=== PATIENT | female | born 1930 | race Caucasian/White ===

== ENCOUNTER 2016-10-25 14:39 | Emergency (ER) | payer MEDICARE, OTHER ==
[2016-10-25] MEDS ORDERED: LORazepam 2 MG/ML MDV IVPUSH ONE (15:27)
[2016-10-25] MEDS ORDERED: Ondansetron 4 MG/2 ML SDV IVPUSH ONE (15:27)
[2016-10-25] MEDS ORDERED: Sodium Chloride 0.9% 10 ML Syringe FLUSH PRN (15:30)
[2016-10-25] MEDS ORDERED: Sodium Chloride 0.9% 500 ML IV ONE (16:26)
[2016-10-25] MEDS ORDERED: Scopolamine 1.5 MG Transdermal Patch TOP ONE (18:11)
--- NOTE | 2016-10-25 18:50 | EDM.PDOC ---
ED HPI GENERAL MEDICAL PROBLEM - General Chief Complaint: Neurological Problem Stated Complaint: Dizziness Time Seen by Provider: 10/25/16 15:15 Source of Information: Reports: Patient, RN Notes Reviewed History Limitations: Reports: No Limitations - History of Present Illness INITIAL COMMENTS - FREE TEXT/NARRATIVE: 86 year old female presents to the ED today with complaints of dizziness. She describes the dizziness as the room spinning. The symptoms came on suddenly and are worse with position changes. She almost immediately developed nausea, vomiting, and diarrhea. She has a history of vertigo and Minieres disease. She says this episode is much worse than previous episodes. Normally the episodes of dizziness resolve quickly. Today the symptoms are most persistent. She usually takes meclizine which helps but today she did not take any because she was vomiting. She did however take an aspirin. She denies headache, slurred speech, confusion, or weakness in extremities. She did develop a little chest pressure prior to arrival. This quickly resolved. She denies history of heart disease. She reports a history of "mini stroke." Otherwise no other neurologic history. She denies fever, chills, cough, abdominal pain. She denies near syncope or feeling lightheaded. - Related Data Allergies Allergy/AdvReac Type Severity Reaction Status Date / Time ciprofloxacin Allergy Edema Verified 10/25/16 14:55 fentanyl Allergy Shortness Verified 10/25/16 14:55 of Breath Home Meds: Home Meds Omeprazole 40 mg PO DAILY 09/11/13 [History] Simvastatin [Zocor] 10 mg PO QPM 09/11/13 [History] Meclizine [Antivert] 25 mg PO Q8HR PRN 09/24/13 [History] Zolpidem [Ambien] 5 mg PO BEDTIME PRN 09/24/13 [History] Levothyroxine [Synthroid] 1 mg PO ACBRK 06/22/14 [History] Losartan/Hydrochlorothiazide [Losartan-HCTZ 100-25 MG] 25 - 100 mg PO DAILY [History] Aspirin [Halfprin] 81 mg PO Q48H 11/28/15 [History] Past Medical History Other HEENT History: eye infections Cardiovascular History: Reports: High Cholesterol, Hypertension Other Cardiovascular History: phlebitis Angiogram . Gastrointestinal History: Reports: Diverticulosis, GERD, Hiatal Hernia, PUD Genitourinary History: Reports: Renal Calculus, Urinary Incontinence, Other ( See Below) Other Genitourinary History: bladder infection Musculoskeletal History: Reports: Osteoarthritis Neurological History: Reports: Vertigo Psychiatric History: Reports: Anxiety, Depression Other Psychiatric History: per pt she stopped taking meds because she thinks they dont do any good. 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, Renal Other Oncologic History: last chemo 2 years ago - Past Surgical History HEENT Surgical History: Reports: Cataract Surgery Cardiovascular Surgical History: Reports: Other (See Below) Social & Family History - Tobacco Use Smoking Status *Q: Never Smoker Second Hand Smoke Exposure: No - Caffeine Use Caffeine Use: Reports: None - Alcohol Use Days Per Week of Alcohol Use: 0 Number of Drinks Per Day: 0 Total Drinks Per Week: 0 - Recreational Drug Use Recreational Drug Use: No - Living Situation & Occupation Living situation: Reports: , with Spouse Occupation: Retired ED ROS GENERAL - Review of Systems Review Of Systems: See Below Constitutional: Denies: Fever, Chills, Diaphoresis HEENT: Reports: Vertigo. Denies: Ear Pain, Vision Change Respiratory: Reports: No Symptoms. Denies: Shortness of Breath, Cough Cardiovascular: Reports: Chest Pain. Denies: Dyspnea on Exertion, Edema, Lightheadedness, Palpitations, Syncope GI/Abdominal: Reports: Diarrhea, Nausea, Vomiting. Denies: Abdominal Pain Neurological: Reports: Dizziness, Difficulty Walking. Denies: Confusion, Headache, Numbness, Syncope, Tingling, Tremors, Trouble Speaking, Weakness, Change in Speech ED EXAM, DIZZINESS - Physical Exam Exam: See Below Exam Limited By: No Limitations General Appearance: Alert, WD/WN, No Apparent Distress, Anxious Eye Exam: Bilateral Eye: EOMI, Normal Inspection, PERRL Ears: Normal External Exam, Normal Canal, Hearing Grossly Normal, Normal TMs Nose: Normal Inspection, Normal Mucosa Throat/Mouth: Normal Inspection, Normal Oropharynx, No Airway Compromise Head Exam: Atraumatic, Normocephalic Vertigo: worsens with head to L, worsens with head to R, reproducible, short duration Respiratory/Chest: No Respiratory Distress, Lungs Clear, Normal Breath Sounds, No Accessory Muscle Use, Chest Non-Tender Cardiovascular: Normal Peripheral Pulses, Regular Rate, Rhythm, No Edema, No Murmur GI/Abdominal: Normal Bowel Sounds, Soft, Non-Tender, No Distention Neurological: Alert, Normal Mood/Affect, Normal Dorsiflexion, CN II-XII Intact, Normal Plantar Flexion, No Motor/Sensory Deficits, Oriented x 3 Psychiatric: Anxious Skin Exam: Warm, Dry, Intact Course - Vital Signs Last Recorded V/S: Last Vital Signs Temp 98.8 F 10/25/16 14:51 Pulse 77 10/25/16 14:51 Resp 22 H 10/25/16 14:51 BP 148/72 H 10/25/16 15:30 Pulse Ox 100 10/25/16 14:51 - Orders/Labs/Meds Orders: Active Orders 24 hr Category Date Time Status Cardiac Monitoring [RC] . DIRECTED Care 10/25/16 15:31 Active EKG 12 Lead [EKG Documentation Completion] [RC] STAT Care 10/25/16 15:31 Active Peripheral IV Care [RC] . DIRECTED Care 10/25/16 15:31 Active Sodium Chloride 0.9% [Saline Flush] Med 10/25/16 15:30 Active 10 ml FLUSH ASDIRECTED PRN Peripheral IV Insertion Adult [OM.PC] Stat Oth 10/25/16 15:31 Ordered Medication Orders Sodium Chloride (Saline Flush) 10 ml FLUSH ASDIRECTED PRN PRN Reason: Keep Vein Open Last Admin: 10/25/16 15:56 Dose: 10 ml Labs: Laboratory Tests 10/25/16 10/25/16 Range/Units 15:25 15:25 WBC 3.36 L (3.98-10.04) K/mm3 RBC 3.67 L (3.98-5.22) M/mm3 Hgb 11.2 (11.2-15.7) gm/L Hct 32.9 L (34.1-44.9) % MCV 89.6 (79.4-94.8) fl MCH 30.5 (25.6-32.2) pg MCHC 34.0 (32.2-35.5) g/dl RDW Std Deviation 43.2 (36.4-46.3) fL Plt Count 168 L (182-369) K/mm3 MPV 9.2 L (9.4-12.3) fl Neut % (Auto) 73.8 H (34.0-71.1) % Lymph % (Auto) 14.0 L (19.3-51.7) % [place] % (Auto) 9.8 (4.7-12.5) % Eos % (Auto) 1.8 (0.7-5.8) Baso % (Auto) 0.3 (0.1-1.2) % Neut # (Auto) 2.48 (1.56-6.13) K/mm3 Lymph # (Auto) 0.47 L (1.18-3.74) K/mm3 [place] # (Auto) 0.33 (0.24-0.36) K/mm3 Eos # (Auto) 0.06 (0.04-0.36) K/mm3 Baso # (Auto) 0.01 (0.01-0.08) K/mm3 Sodium 135 L (136-145) mEq/L Potassium 3.1 L (3.5-5.1) mEq/L Chloride 98 (98-107) mEq/L Carbon Dioxide 31 (21-32) mEq/L Anion Gap 9.1 (5-15) BUN 25 H (7-18) mg/dL Creatinine 1.5 H (0.55-1.02) mg/dL Est Cr Clr Drug Dosing 25.69 mL/min Estimated GFR (MDRD) 33 (>60) mL/min BUN/Creatinine Ratio 16.7 (14-18) Glucose 123 H (83-115) mg/dL Calcium 8.9 (8.5-10.1) mg/dL Total Bilirubin 1.0 (0.2-1.0) mg/dL AST 21 (15-37) U/L ALT 21 (14-59) U/L Alkaline Phosphatase 36 L (46-116) U/L Troponin I < 0.017 (0.00-0.056) ng/mL Total Protein 6.5 (6.4-8.2) g/dl Albumin 3.8 (3.4-5.0) g/dl Globulin 2.7 gm/dL Albumin/Globulin Ratio 1.4 (1-2) Meds: Medications Generic Name Dose Route Start Last Admin Trade Name Freq PRN Reason Stop Dose Admin Sodium Chloride 10 ml 10/25/16 15:30 10/25/16 15:56 Saline Flush FLUSH 10 ml ASDIRECTED PRN Administration Keep Vein Open Discontinued Medications Generic Name Dose Route Start Last Admin Trade Name Promise PRN Reason Stop Dose Admin Sodium Chloride 500 mls @ 500 mls/hr 10/25/16 16:26 10/25/16 16:41 Normal Saline IV 10/25/16 17:25 500 mls/hr ONETIME ONE Administration Lorazepam 0.25 mg 10/25/16 15:27 10/25/16 15:51 Ativan IVPUSH 10/25/16 15:28 0.25 mg ONETIME ONE Administration Meclizine HCl 25 mg 10/25/16 16:38 10/25/16 16:43 Antivert PO 10/25/16 16:39 25 mg ONETIME ONE Administration Ondansetron HCl 4 mg 10/25/16 15:27 10/25/16 15:50 Zofran IVPUSH 10/25/16 15:28 4 mg ONETIME ONE Administration Scopolamine 1.5 mg 10/25/16 18:11 10/25/16 18:24 Transderm-Scop TOP 10/25/16 18:12 1.5 mg ONETIME ONE Administration - Re-Assessments/Exams Free Text/Narrative Re-Assessment/Exam: CBC reveals WBC of 3,000. CMP reveals sodium 135, potassium 3.1, BUN 25, creatinine 1.5. Troponin is WNL. EKG obtained at 1540. Reveals SR 70 bpm with 1st degree AV block. No acute ischemic changes. She has a history of vertigo and a normal neuro exam, therefore CT scan is not indicated. Initial treatment included IV Ativan and Zofran. She had some improvement with this. She was then given Meclizine 25mg PO. This offered a significant amount of improvement in her vertigo symptoms while at rest. However, she continued to have vertigo with position changes. She was given 500ml fluid bolus as well.She is requesting scopolamine patch as this has worked well for her in the past. Patch was applied. She understands that she cannot take meclizine with the patch. We discussed safety concerns at home. She is requesting to go home. Will refer to [facility] Dr. Gao for further treatment of her vertigo. She was encouraged to return with any new or worsening symptoms. Grand daughter will drive them home. Departure - Departure Time of Disposition: 19:14 Disposition: Home, Self-Care 01 Condition: Good Clinical Impression: Vertigo Meniere disorder Qualifiers: Laterality: unspecified laterality Qualified Code(s): H81.09 - Meniere's disease, unspecified ear - Discharge Information Instructions: Vertigo, [id number], Meniere Disease Referrals: Rambo Dallas MD [Primary Care Provider] - James Gao MD [Physician] - Forms: ED Department Discharge Additional Instructions: Follow-up with Dr. Gao as soon as possible. Call the clinic right away tomorrow morning to see if you can get you in tomorrow. Call [phone] Scopolamine patch every 3 days as needed for vertigo. Do not take meclizine when you have scopolamine patch on Follow-up with Dr. Dallas next week Return to ER with any new or worsening symptoms - My Orders Last 24 Hours: My Active Orders 10/25/16 15:30 Sodium Chloride 0.9% [Saline Flush] 10 ml FLUSH ASDIRECTED PRN 10/25/16 15:31 Cardiac Monitoring [RC] . DIRECTED EKG 12 Lead [EKG Documentation Completion] [RC] STAT Peripheral IV Care [RC] . DIRECTED Peripheral IV Insertion Adult [OM.PC] Stat - Assessment/Plan Last 24 Hours: My Active Orders 10/25/16 15:30 Sodium Chloride 0.9% [Saline Flush] 10 ml FLUSH ASDIRECTED PRN 10/25/16 15:31 Cardiac Monitoring [RC] . DIRECTED EKG 12 Lead [EKG Documentation Completion] [RC] STAT Peripheral IV Care [RC] . DIRECTED Peripheral IV Insertion Adult [OM.PC] Stat
[2016-10-25 20:51] VITALS: BP 140/82
== END 2016-10-25 20:00 | disposition home or self-care (01) ==
LOC: JD.ED 14:39
DX: R42 Dizziness and giddiness (principal); H81.09 Meniere's disease, unspecified ear; I10 Essential (primary) hypertension; E78.00 Pure hypercholesterolemia, unspecified; K21.9 Gastro-esophageal reflux disease without esophagitis; M81.0 Age-related osteoporosis without current pathological fracture; F41.9 Anxiety disorder, unspecified; F32.9 Major depressive disorder, single episode, unspecified; E03.9 Hypothyroidism, unspecified; Z85.71 Personal history of Hodgkin lymphoma; Z85.53 Personal history of malignant neoplasm of renal pelvis; Z98.49 Cataract extraction status, unspecified eye; Z79.82 Long term (current) use of aspirin; Z79.899 Other long term (current) drug therapy; Z88.1 Allergy status to other antibiotic agents; Z88.8 Allergy status to other drugs, medicaments and biological substances
CPT/HCPCS: 36415; 80053; 84484; 85025; 93005; 96361; 96374; 96375; 99284; A9270; J2060; J2405; J7040; J7050

== ENCOUNTER 2017-01-06 20:25 | Emergency (ER) | payer MEDICARE, OTHER ==
--- NOTE | 2017-01-06 22:16 | EDM.PDOC ---
ED HPI GENERAL MEDICAL PROBLEM - General Chief Complaint: Gastrointestinal Problem Stated Complaint: MAY HAVE SWOLLED A PIECE OF HER PARSHALL Time Seen by Provider: 01/06/17 20:38 Source of Information: Reports: Patient History Limitations: Reports: No Limitations - History of Present Illness INITIAL COMMENTS - FREE TEXT/NARRATIVE: The patient presents with a possible swallowed FB. The patient has new dentures and a metal piece fell off and she thinks she swallowed it. She has no pain, nausea or vomiting. This happened this evening. Onset: Sudden Duration: Hour(s): Location: Reports: Abdomen Improves with: Reports: None Worsens with: Reports: None Context: Reports: Activity (She was talking with some friends when it happened) Associated Symptoms: Reports: No Other Symptoms - Related Data Allergies Allergy/AdvReac Type Severity Reaction Status Date / Time ciprofloxacin Allergy Edema Verified 01/06/17 20:41 fentanyl Allergy Shortness Verified 01/06/17 20:41 of Breath Home Meds: Home Meds Omeprazole 40 mg PO DAILY 09/11/13 [History] Simvastatin [Zocor] 10 mg PO QPM 09/11/13 [History] Meclizine [Antivert] 25 mg PO Q8HR PRN 09/24/13 [History] Zolpidem [Ambien] 5 mg PO BEDTIME PRN 09/24/13 [History] Levothyroxine [Synthroid] 1 mg PO ACBRK 06/22/14 [History] Losartan/Hydrochlorothiazide [Losartan-HCTZ 100-25 MG] 25 - 100 mg PO DAILY [History] Aspirin [Halfprin] 81 mg PO Q48H 11/28/15 [History] Past Medical History Other HEENT History: eye infections Cardiovascular History: Reports: High Cholesterol, Hypertension Other Cardiovascular History: phlebitis Angiogram . Gastrointestinal History: Reports: Diverticulosis, GERD, Hiatal Hernia, PUD Genitourinary History: Reports: Renal Calculus, Urinary Incontinence, Other ( See Below) Other Genitourinary History: bladder infection Musculoskeletal History: Reports: Osteoarthritis Neurological History: Reports: Vertigo Psychiatric History: Reports: Anxiety, Depression Other Psychiatric History: per pt she stopped taking meds because she thinks they dont do any good. 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, Renal Other Oncologic History: last chemo 2 years ago - Past Surgical History HEENT Surgical History: Reports: Cataract Surgery Cardiovascular Surgical History: Reports: Other (See Below) Social & Family History - Tobacco Use Smoking Status *Q: Never Smoker Second Hand Smoke Exposure: No - Caffeine Use Caffeine Use: Reports: None - Alcohol Use Days Per Week of Alcohol Use: 0 Number of Drinks Per Day: 0 Total Drinks Per Week: 0 - Recreational Drug Use Recreational Drug Use: No - Living Situation & Occupation Living situation: Reports: , with Spouse Occupation: Retired ED ROS GENERAL - Review of Systems Review Of Systems: See Below Constitutional: Reports: No Symptoms HEENT: Reports: No Symptoms Respiratory: Reports: No Symptoms Cardiovascular: Reports: No Symptoms Endocrine: Reports: No Symptoms GI/Abdominal: Reports: No Symptoms : Reports: No Symptoms Musculoskeletal: Reports: No Symptoms Skin: Reports: No Symptoms ED EXAM, GI/ABD - Physical Exam Exam: See Below Exam Limited By: No Limitations General Appearance: Alert, No Apparent Distress Ears: Normal External Exam Nose: Normal Inspection Throat/Mouth: Normal Inspection Head: Atraumatic, Normocephalic Neck: Normal Inspection Respiratory/Chest: No Respiratory Distress, Lungs Clear, Normal Breath Sounds Cardiovascular: Regular Rate, Rhythm, No Edema, No Murmur GI/Abdominal Exam: Soft, Non-Tender, No Organomegaly, No Mass Extremities: Normal Inspection Course - Vital Signs Last Recorded V/S: Last Vital Signs Temp 97.4 F 01/06/17 20:36 Pulse 79 01/06/17 20:36 Resp 16 01/06/17 20:36 BP Pulse Ox 100 01/06/17 20:36 - Orders/Labs/Meds Orders: Active Orders 24 hr Category Date Time Status Abdomen Series w Chest 1V [CR] Stat Exams 01/06/17 21:06 Taken - Re-Assessments/Exams Free Text/Narrative Re-Assessment/Exam: 01/06/17 22:13 Her x-ray shows a FB in her stomach. There is no sign of perforation such as free air. She has an EGD on Saturday. I will have her keep that appointment and return if she has any other problems such as pain. Departure - Departure Time of Disposition: 22:15 Disposition: Home, Self-Care 01 Condition: Good Clinical Impression: Stomach FB Qualifiers: Encounter type: initial encounter Qualified Code(s): T18.2XXA - Foreign body in stomach, initial encounter - Discharge Information Referrals: Rambo Dallas MD [Primary Care Provider] - Additional Instructions: Follow up with your general surgeon on Saturday for your EGD. Please return if you have pain. - My Orders Last 24 Hours: My Active Orders 01/06/17 21:06 Abdomen Series w Chest 1V [CR] Stat - Assessment/Plan Last 24 Hours: My Active Orders 01/06/17 21:06 Abdomen Series w Chest 1V [CR] Stat
--- NOTE | 2017-01-07 08:10 | CR ---
Abdominal series: Supine and upright views of the abdomen were obtained as well as frontal view of the chest. Comparison: Previous chest x-ray of 11/28/15. Prior abdominal x-ray of 09/06/14. Heart size and mediastinum are within normal limits. Surgical clips are noted within the base of the left neck. Lungs are clear but hyperinflated. Bony structures are unremarkable for the patient's age. Surgical clips are seen within the right upper abdomen. Calcifications are seen within the pelvis which are compatible with phleboliths. Arterial calcification is also seen. Bowel gas pattern is normal. No free air is identified. Impression: 1. Incidental findings. Nothing acute is seen. No opaque foreign object is identified. Diagnostic code #2
== END 2017-01-06 22:19 | disposition home or self-care (01) ==
LOC: JD.ED 20:25
DX: T18.2XXA Foreign body in stomach, initial encounter (principal); M19.90 Unspecified osteoarthritis, unspecified site; E03.9 Hypothyroidism, unspecified; E78.00 Pure hypercholesterolemia, unspecified; I10 Essential (primary) hypertension; K21.9 Gastro-esophageal reflux disease without esophagitis; Z88.1 Allergy status to other antibiotic agents; Z79.899 Other long term (current) drug therapy; Z79.82 Long term (current) use of aspirin; Z87.442 Personal history of urinary calculi; Z98.49 Cataract extraction status, unspecified eye
CPT/HCPCS: 74022; 74022-26; 99283

== ENCOUNTER 2017-03-25 00:32 | Emergency (ER) | payer MEDICARE, OTHER ==
[2017-03-25 00:46] VITALS: BP 170/74
--- NOTE | 2017-03-25 00:54 | EDM.PDOC ---
ED HPI GENERAL MEDICAL PROBLEM - General Chief Complaint: Lower Extremity Injury/Pain Stated Complaint: BAD KNEE PAIN Time Seen by Provider: 03/25/17 00:54 - History of Present Illness INITIAL COMMENTS - FREE TEXT/NARRATIVE: 86-year-old female presents emergency room with left knee pain. Patient was seen in the walk in clinic yesterday had x-rays done and had an injection done into her knee she was told it may take 2 or 3 days for the injection to help with the pain. She has tried Tylenol 650 mg and this made her feel funny. Prior to going to the walk-in clinic she's had 2-3 days of worsening the pain. Prior to this she's had knee pain but not as bad as it's been over the last several days. She thinks the pain now is actually worse than before she got the injection at the walk-in clinic. Left Knee Pain Score (Numeric/FACES): 8 - Related Data Allergies Allergy/AdvReac Type Severity Reaction Status Date / Time ciprofloxacin Allergy Edema Verified 01/06/17 20:41 fentanyl Allergy Shortness Verified 01/06/17 20:41 of Breath Home Meds: Home Meds Omeprazole 40 mg PO DAILY 09/11/13 [History] Simvastatin [Zocor] 10 mg PO QPM 09/11/13 [History] Meclizine [Antivert] 25 mg PO Q8HR PRN 09/24/13 [History] Zolpidem [Ambien] 5 mg PO BEDTIME PRN 09/24/13 [History] Levothyroxine [Synthroid] 1 mg PO ACBRK 06/22/14 [History] Losartan/Hydrochlorothiazide [Losartan-HCTZ 100-25 MG] 25 - 100 mg PO DAILY [History] Aspirin [Halfprin] 81 mg PO Q48H 11/28/15 [History] Past Medical History Other HEENT History: eye infections Cardiovascular History: Reports: High Cholesterol, Hypertension Other Cardiovascular History: phlebitis Angiogram . Gastrointestinal History: Reports: Diverticulosis, GERD, Hiatal Hernia, PUD Genitourinary History: Reports: Renal Calculus, Urinary Incontinence, Other ( See Below) Other Genitourinary History: bladder infection Musculoskeletal History: Reports: Osteoarthritis Neurological History: Reports: Vertigo Psychiatric History: Reports: Anxiety, Depression Other Psychiatric History: per pt she stopped taking meds because she thinks they dont do any good. 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, Renal Other Oncologic History: last chemo 2 years ago - Past Surgical History HEENT Surgical History: Reports: Cataract Surgery Cardiovascular Surgical History: Reports: Other (See Below) Social & Family History - Family History Family Medical History: Noncontributory - Tobacco Use Smoking Status *Q: Never Smoker Second Hand Smoke Exposure: No - Caffeine Use Caffeine Use: Reports: None - Alcohol Use Days Per Week of Alcohol Use: 0 Number of Drinks Per Day: 0 Total Drinks Per Week: 0 - Recreational Drug Use Recreational Drug Use: No - Living Situation & Occupation Living situation: Reports: , with Spouse Occupation: Retired Review of Systems - Review of Systems Review Of Systems: See Below Constitutional: Reports: No Symptoms Eyes: Reports: No Symptoms Respiratory: Reports: No Symptoms Cardiovascular: Reports: No Symptoms GI/Abdominal: Reports: No Symptoms ED EXAM, GENERAL - Physical Exam Exam: See Below Exam Limited By: No Limitations General Appearance: Alert, No Apparent Distress Respiratory/Chest: No Respiratory Distress, Lungs Clear, Normal Breath Sounds Cardiovascular: Regular Rate, Rhythm, No Edema, No Murmur Extremities: Other (Examination left knee shows perhaps a small effusion no redness or warmth.) Course - Vital Signs Last Recorded V/S: Last Vital Signs Temp 36.4 C 03/25/17 00:40 Pulse 75 03/25/17 00:40 Resp 18 03/25/17 00:40 BP 170/74 H 03/25/17 00:40 Pulse Ox 98 03/25/17 00:40 - Orders/Labs/Meds Meds: Medications Discontinued Medications Generic Name Dose Route Start Last Admin Trade Name Promise PRN Reason Stop Dose Admin Hydrocodone Bitart/Acetaminophen 0.5 tab 03/25/17 01:14 03/25/17 01:20 [place] 325-5 Mg PO 03/25/17 01:15 0.5 tab ONETIME ONE Administration Hydrocodone Bitart/Acetaminophen 0.5 tab 03/25/17 02:11 03/25/17 02:17 [place] 325-5 Mg PO 03/25/17 02:12 0.5 tab ONETIME ONE Administration - Re-Assessments/Exams Free Text/Narrative Re-Assessment/Exam: 03/25/17 02:33 Patient is already taken Tylenol did not have much success with that she has 1 kidney does not want to take tramadol because of this nonsteroidals would equally be a problem. I gave her a half of the [place] 08/15/24 this did not give her any relief we did try and give her another half. 03/25/17 03:20 She is moving around little bit better at this point she still not convincing go home and get some sleep. With her having almost worsening pain after the injection than before and I'm concerned about the possibility of a steroid flare. This should resolve in 24-48 hours. She's given a prescription for the machine out in the waiting room [place] 08/15/24 #10 one every 6 hours as needed. Departure - Departure Time of Disposition: 03:21 Disposition: Home, Self-Care 01 Clinical Impression: Left knee pain - Discharge Information Instructions: Knee Pain Referrals: Rambo Dallas MD [Primary Care Provider] - Forms: ED Department Discharge Additional Instructions: Return to the emergency room with any questions problems or worsening symptoms. Follow-up with your regular physician in the next day or 2. Your given [place] this is a strong pain medication take one every 6 hours as needed for pain. Do not take your sleeping pills with this as this can cause excessive sedation. Use a stool softener such as Colace twice daily while taking the [place], or hydrocodone.
[2017-03-25] MEDS ORDERED: Acetaminophen/HYDROcodone 325-5 MG Tab PO ONE ×2 (01:14→02:11)
== END 2017-03-25 04:00 | disposition home or self-care (01) ==
LOC: JD.ED 00:32
DX: M25.562 Pain in left knee (principal); I10 Essential (primary) hypertension; E78.00 Pure hypercholesterolemia, unspecified; K21.9 Gastro-esophageal reflux disease without esophagitis; F32.9 Major depressive disorder, single episode, unspecified; E03.9 Hypothyroidism, unspecified; Z79.82 Long term (current) use of aspirin; Z79.899 Other long term (current) drug therapy; Z88.1 Allergy status to other antibiotic agents; Z88.5 Allergy status to narcotic agent
CPT/HCPCS: 99283; A9270

== ENCOUNTER 2017-03-25 14:26 | Emergency (ER) | payer MEDICARE, OTHER ==
[2017-03-25 14:46] VITALS: BP 145/95
[2017-03-25] MEDS ORDERED: Sodium Chloride 0.9% 10 ML Syringe FLUSH PRN (15:06)
[2017-03-25] MEDS ORDERED: HYDROmorphone 0.5 MG/0.5 ML Syringe IVPUSH ONE ×3 (15:06→16:57)
[2017-03-25] MEDS ORDERED: LORazepam 2 MG/ML MDV IVPUSH ONE ×2 (15:07→16:54)
--- NOTE | 2017-03-25 15:18 | EDM.PDOC ---
ED HPI GENERAL MEDICAL PROBLEM - General Chief Complaint: Lower Extremity Injury/Pain Stated Complaint: L LEG PAIN Time Seen by Provider: 03/25/17 14:32 Source of Information: Reports: Patient, Family (), RN Notes Reviewed - History of Present Illness INITIAL COMMENTS - FREE TEXT/NARRATIVE: 86-year-old lady comes in with severe left upper leg and left knee pain. This All started with knee pain about 4-5 days ago, she was seen at the clinic about 2 or 3 days ago, had a "injection" in the knee. Has not helped. She presented here to the ED about 14 hours ago. She was treated with and prescribed hydrocodone. She does not like "how that makes me feel". She states "it is not helping the pain". They spent about 4 hours here in the ED. She states she has not slept "for 3 nights". She does not recall any particular injury to the knee. She has severe pain even at rest but more than just the knee, left upper leg and now even left hip area as well. No fever or chills. No nausea or vomiting. 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 Left Knee Pain Score (Numeric/FACES): 10 - Related Data Allergies Allergy/AdvReac Type Severity Reaction Status Date / Time ciprofloxacin Allergy Edema Verified 03/28/17 10:39 fentanyl Allergy Shortness Verified 03/28/17 10:39 of Breath Home Meds: Home Meds Omeprazole 20 mg PO DAILY 09/11/13 [History] Simvastatin [Zocor] 10 mg PO QPM 09/11/13 [History] Meclizine [Antivert] 25 mg PO Q8HR PRN 09/24/13 [History] Zolpidem [Ambien] 5 mg PO BEDTIME PRN 09/24/13 [History] Levothyroxine [Synthroid] 100 mg PO ACBRK 06/22/14 [History] Losartan/Hydrochlorothiazide [Losartan-HCTZ 100-25 MG] 25 - 100 mg PO DAILY [History] Acetaminophen [Tylenol Arthritis] 650 mg PO BID PRN 03/28/17 [History] LORazepam [Ativan] 0.5 mg PO QPM PRN #4 tablet 03/28/17 [Rx] Omeprazole 20 mg PO QPM PRN 03/28/17 [History] traMADol [Ultram] 25 mg PO BID PRN 03/28/17 [History] Past Medical History Other HEENT History: eye infections Cardiovascular History: Reports: High Cholesterol, Hypertension Other Cardiovascular History: phlebitis Angiogram . Gastrointestinal History: Reports: Diverticulosis, GERD, Hiatal Hernia, PUD Genitourinary History: Reports: Renal Calculus, Urinary Incontinence, Other ( See Below) Other Genitourinary History: bladder infection Musculoskeletal History: Reports: Osteoarthritis Neurological History: Reports: Vertigo Psychiatric History: Reports: Anxiety, Depression Other Psychiatric History: per pt she stopped taking meds because she thinks they dont do any good. 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, Renal Other Oncologic History: last chemo 2 years ago - Past Surgical History HEENT Surgical History: Reports: Cataract Surgery Cardiovascular Surgical History: Reports: Other (See Below) Social & Family History - Family History Family Medical History: Noncontributory - Tobacco Use Smoking Status *Q: Never Smoker Second Hand Smoke Exposure: No - Caffeine Use Caffeine Use: Reports: None - Alcohol Use Days Per Week of Alcohol Use: 0 Number of Drinks Per Day: 0 Total Drinks Per Week: 0 - Recreational Drug Use Recreational Drug Use: No - Living Situation & Occupation Living situation: Reports: , with Spouse Occupation: Retired Review of Systems - Review of Systems Review Of Systems: See Below Constitutional: Denies: Chills, Fever Eyes: Reports: No Symptoms Mouth/Throat: Reports: No Symptoms Respiratory: Denies: Shortness of Breath, Pleuritic Chest Pain Cardiovascular: Denies: Chest Pain GI/Abdominal: Denies: Abdominal Pain, Nausea, Vomiting Musculoskeletal: Reports: No Symptoms Skin: Reports: No Symptoms Neurological: Denies: Numbness, Tingling, Weakness ED EXAM, GENERAL - Physical Exam Exam: See Below General Appearance: Alert, Anxious, Moderate Distress Eye Exam: Bilateral Eye: PERRL Throat/Mouth: Normal Inspection Head: Atraumatic. No: Facial Swelling Neck: Supple Respiratory/Chest: No Respiratory Distress, Lungs Clear, Normal Breath Sounds Cardiovascular: Regular Rate, Rhythm Back Exam: No: CVA Tenderness (L), CVA Tenderness (R) Extremities: Other (She has very mild left knee tenderness but also has tenderness of the left thigh laterally and anteriorly. There is no swelling of the thigh.). No: Pedal Edema, Leg Pain (Calf is nontender, without swelling), Increased Warmth, Redness Neurological: Alert, Oriented, No Motor/Sensory Deficits, Other (She has pain with straight leg raising on the left) Skin Exam: Warm, Dry, Normal Color Course - Vital Signs Last Recorded V/S: Last Vital Signs Temp 98.3 F 03/25/17 14:40 Pulse 74 03/25/17 14:40 Resp 20 03/25/17 14:40 BP 145/95 H 03/25/17 14:40 Pulse Ox 100 03/25/17 14:40 - Orders/Labs/Meds Labs: Laboratory Tests 03/25/17 03/25/17 Range/Units 15:14 15:14 WBC 6.60 (3.98-10.04) K/mm3 RBC 4.02 (3.98-5.22) M/mm3 Hgb 12.4 (11.2-15.7) gm/L Hct 35.5 (34.1-44.9) % MCV 88.3 (79.4-94.8) fl MCH 30.8 (25.6-32.2) pg MCHC 34.9 (32.2-35.5) g/dl RDW Std Deviation 43.0 (36.4-46.3) fL Plt Count 208 (182-369) K/mm3 MPV 8.6 L (9.4-12.3) fl Neut % (Auto) 75.5 H (34.0-71.1) % Lymph % (Auto) 13.3 L (19.3-51.7) % [place] % (Auto) 10.8 (4.7-12.5) % Eos % (Auto) 0 L (0.7-5.8) Baso % (Auto) 0.2 (0.1-1.2) % Neut # (Auto) 4.99 (1.56-6.13) K/mm3 Lymph # (Auto) 0.88 L (1.18-3.74) K/mm3 [place] # (Auto) 0.71 H (0.24-0.36) K/mm3 Eos # (Auto) 0.00 L (0.04-0.36) K/mm3 Baso # (Auto) 0.01 (0.01-0.08) K/mm3 Sodium 131 L (136-145) mEq/L Potassium 3.7 (3.5-5.1) mEq/L Chloride 96 L (98-107) mEq/L Carbon Dioxide 23 (21-32) mEq/L Anion Gap 15.7 H (5-15) BUN 30 H (7-18) mg/dL Creatinine 1.5 H (0.55-1.02) mg/dL Est Cr Clr Drug Dosing 25.35 mL/min Estimated GFR (MDRD) 33 (>60) mL/min BUN/Creatinine Ratio 20.0 H (14-18) Glucose 108 (83-115) mg/dL Calcium 9.7 (8.5-10.1) mg/dL Total Bilirubin 1.4 H (0.2-1.0) mg/dL AST 20 (15-37) U/L ALT 22 (14-59) U/L Alkaline Phosphatase 37 L (46-116) U/L Total Protein 7.1 (6.4-8.2) g/dl Albumin 4.2 (3.4-5.0) g/dl Globulin 2.9 gm/dL Albumin/Globulin Ratio 1.5 (1-2) Meds: Medications Discontinued Medications Generic Name Dose Route Start Last Admin Trade Name Freq PRN Reason Stop Dose Admin Hydromorphone HCl 0.25 mg 03/25/17 15:06 03/25/17 15:28 Dilaudid IVPUSH 03/25/17 15:07 0.25 mg ONETIME ONE Administration Hydromorphone HCl 0.25 mg 03/25/17 16:11 03/25/17 16:15 Dilaudid IVPUSH 03/25/17 16:12 0.25 mg ONETIME ONE Administration Hydromorphone HCl 0.25 mg 03/25/17 16:57 03/25/17 17:07 Dilaudid IVPUSH 03/25/17 16:58 0.25 mg ONETIME ONE Administration Sodium Chloride 500 mls @ 999 mls/hr 03/25/17 19:42 03/25/17 19:45 Normal Saline IV 03/25/17 20:12 999 mls/hr .BOLUS ONE Administration Lorazepam 0.5 mg 03/25/17 15:07 03/25/17 15:31 Ativan IVPUSH 03/25/17 15:08 0.5 mg ONETIME ONE Administration Lorazepam 0.25 mg 03/25/17 16:54 03/25/17 17:11 Ativan IVPUSH 03/25/17 16:55 0.25 mg ONETIME ONE Administration Methylprednisolone Sodium Succinate 125 mg 03/25/17 17:26 03/25/17 18:00 Solu-Medrol IVPUSH 03/25/17 17:27 125 mg ONETIME ONE Administration Ondansetron HCl 4 mg 03/25/17 19:42 03/25/17 19:47 Zofran IVPUSH 03/25/17 19:43 4 mg ONETIME ONE Administration Ondansetron HCl 4 mg 03/25/17 20:46 03/25/17 20:49 Zofran Odt PO 03/25/17 20:47 4 mg ONETIME ONE Administration Sodium Chloride 10 ml 03/25/17 15:06 03/25/17 15:33 Saline Flush FLUSH 10 ml ASDIRECTED PRN Administration Keep Vein Open - Re-Assessments/Exams Free Text/Narrative Re-Assessment/Exam: 03/29/17 12:36.patient was treated with 0.25 mg ativan and dilaudid initially as the PO hydrocodone prescribed "was not working". She also did seem quite anxious, both she and her quite frustrated with her continued discomfort L knee and leg. She stated the above did not help much, did not make her drowsy intially, further dosage given to where she did get quite drowsy. Than when getting ready for discharge she did become nauseated, vomited once. Given zofran 4 mg IV, she was not hypotensive but given a 500 bolus of NS prior to discharge. Departure - Departure Time of Disposition: 21:00 Disposition: Home, Self-Care 01 Condition: Fair Clinical Impression: Sciatica Qualifiers: Laterality: left Qualified Code(s): M54.32 - Sciatica, left side - Discharge Information Instructions: Sciatica, [id number] Referrals: Rambo Dallas MD [Primary Care Provider] - Forms: ED Department Discharge Additional Instructions: One half tablet hydrocodone along with 500 mg Tylenol 2-3 times daily as needed for severe pain, you may take one half tablet tramadol in between doses of Tylenol and hydrocodone if needed for severe pain not relieved by the hydrocodone and Tylenol. Use walker at all times for support and safety. Prednisone 20 mg each morning for the next [address] Dallas tomorrow morning as planned. Return to ED as needed.
[2017-03-25] MEDS ORDERED: methylPREDNISolone Sodium Succinate 125 MG/2 ML SDV IVPUSH ONE (17:26)
[2017-03-25] MEDS ORDERED: Ondansetron 4 MG/2 ML SDV IVPUSH ONE (19:42)
[2017-03-25] MEDS ORDERED: Sodium Chloride 0.9% 500 ML IV ONE (19:42)
[2017-03-25] MEDS ORDERED: Ondansetron 4 MG Tab.DIS PO ONE (20:46)
== END 2017-03-25 20:55 ==
LOC: JD.ED 14:26
DX: M54.32 Sciatica, left side (principal); I10 Essential (primary) hypertension; K21.9 Gastro-esophageal reflux disease without esophagitis; E78.00 Pure hypercholesterolemia, unspecified; F32.9 Major depressive disorder, single episode, unspecified; E03.9 Hypothyroidism, unspecified; Z79.82 Long term (current) use of aspirin; Z79.899 Other long term (current) drug therapy; Z88.1 Allergy status to other antibiotic agents; Z88.5 Allergy status to narcotic agent; M25.562 Pain in left knee
CPT/HCPCS: 36415; 80053; 85025; 96361; 96374; 96375; 96376; 99283; 99284; A9270; J1170; J2060; J2405; J2930; J7040; J7050

== ENCOUNTER 2017-03-28 10:30 | Emergency (ER) | payer MEDICARE, OTHER ==
[2017-03-28] MEDS ORDERED: Sodium Chloride 0.9% 10 ML Syringe FLUSH PRN (11:19)
[2017-03-28] MEDS ORDERED: Sodium Chloride 0.9% 500 ML IV ONE (11:19)
[2017-03-28] MEDS ORDERED: Ondansetron 4 MG/2 ML SDV IVPUSH ONE (11:19)
--- NOTE | 2017-03-28 12:32 | EDM.PDOC ---
ED HPI GENERAL MEDICAL PROBLEM - General Chief Complaint: Cardiovascular Problem Stated Complaint: [facility] Time Seen by Provider: 03/28/17 10:46 Source of Information: Reports: Patient History Limitations: Reports: No Limitations - History of Present Illness INITIAL COMMENTS - FREE TEXT/NARRATIVE: The patient is an 86-year-old female who comes in for evaluation of left knee pain. She states that her pain started several days ago. She is seen multiple providers for this pain. She had an x-ray at an outside clinic earlier this week that was reportedly negative for fracture. The knee was injected. She was then seen in the emergency department twice for this pain. Her pain medications were adjusted and she was discharged. She followed up with Dr. Riddle either yesterday or the day before. He also adjusted her medications and started tramadol. She comes in today because her pain is still very poorly controlled. The pain is located in the knee. It is sharp. Worse with movement. She is able to bear weight but it is uncomfortable to do so. She denies any fall or trauma. There was no provoking factor. No fever or recent illness. No complaint of hip pain or aches or additional extremity pain. Today she is also feeling nauseated and had a few episodes of vomiting this morning. She hasn't had a bowel movement in 4 days. She has taken a stool softener and tried milk of magnesia yesterday with no success. Denies abdominal pain. No chest pain or shortness of breath. Left Knee Pain Score (Numeric/FACES): 5 - Related Data Allergies Allergy/AdvReac Type Severity Reaction Status Date / Time ciprofloxacin Allergy Edema Verified 03/28/17 10:39 fentanyl Allergy Shortness Verified 03/28/17 10:39 of Breath Home Meds: Home Meds Omeprazole 20 mg PO DAILY 09/11/13 [History] Simvastatin [Zocor] 10 mg PO QPM 09/11/13 [History] Meclizine [Antivert] 25 mg PO Q8HR PRN 09/24/13 [History] Zolpidem [Ambien] 5 mg PO BEDTIME PRN 09/24/13 [History] Levothyroxine [Synthroid] 100 mg PO ACBRK 06/22/14 [History] Losartan/Hydrochlorothiazide [Losartan-HCTZ 100-25 MG] 25 - 100 mg PO DAILY [History] Acetaminophen [Tylenol Arthritis] 650 mg PO BID PRN 03/28/17 [History] LORazepam [Ativan] 0.5 mg PO QPM PRN #4 tablet 03/28/17 [Rx] Omeprazole 20 mg PO QPM PRN 03/28/17 [History] traMADol [Ultram] 25 mg PO BID PRN 03/28/17 [History] Past Medical History Other HEENT History: eye infections Cardiovascular History: Reports: High Cholesterol, Hypertension Other Cardiovascular History: phlebitis Angiogram . Gastrointestinal History: Reports: Diverticulosis, GERD, Hiatal Hernia, PUD Genitourinary History: Reports: Renal Calculus, Urinary Incontinence, Other ( See Below) Other Genitourinary History: bladder infection [employer]NA[employer] History: Reports: Musculoskeletal History: Reports: Osteoarthritis Neurological History: Reports: Vertigo Psychiatric History: Reports: Anxiety, Depression, Other (See Below) Other Psychiatric History: per pt she stopped taking meds because she thinks they dont do any good. 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, Renal Other Oncologic History: last chemo 2 years ago - Infectious Disease History Infectious Disease History: Reports: Chicken Pox - Past Surgical History HEENT Surgical History: Reports: Cataract Surgery GI Surgical History: Reports: Other (See Below) Other GI Surgeries/Procedures: bowel surgery Female Surgical History: Reports: Hysterectomy Social & Family History - Family History Family Medical History: Noncontributory - Tobacco Use Smoking Status *Q: Never Smoker Second Hand Smoke Exposure: No - Caffeine Use Caffeine Use: Reports: Coffee - Alcohol Use Days Per Week of Alcohol Use: 0 Number of Drinks Per Day: 0 Total Drinks Per Week: 0 - Recreational Drug Use Recreational Drug Use: No - Living Situation & Occupation Living situation: Reports: , with Spouse Occupation: Retired ED ROS GENERAL - Review of Systems Review Of Systems: See Below Constitutional: Denies: Fever HEENT: Reports: No Symptoms Respiratory: Denies: Shortness of Breath Cardiovascular: Denies: Chest Pain GI/Abdominal: Reports: Nausea, Vomiting. Denies: Abdominal Pain Musculoskeletal: Reports: Leg Pain Neurological: Reports: Dizziness ED EXAM, GENERAL - Physical Exam Exam: See Below Exam Limited By: No Limitations General Appearance: Alert, No Apparent Distress, Anxious Eye Exam: Bilateral Eye: EOMI, Normal Inspection Ears: Normal External Exam Nose: Normal Inspection Throat/Mouth: Normal Inspection, Normal Voice, No Airway Compromise Head: Atraumatic, Normocephalic Neck: Normal Inspection, Supple Respiratory/Chest: No Respiratory Distress, Lungs Clear, Normal Breath Sounds, No Accessory Muscle Use Cardiovascular: Normal Peripheral Pulses, Regular Rate, Rhythm, No Edema, No Murmur GI/Abdominal: Soft, Non-Tender, No Distention. No: Rebound Extremities: Normal Inspection, Other (LLE: no femur TTP. Knee appears normal. No erythema or warmth. No palpable effusion. Full ROM. Mild TTP along anterior patella and along lateral joint line. ) Course - Vital Signs Last Recorded V/S: Last Vital Signs Temp 35.9 C 03/28/17 10:40 Pulse 64 03/28/17 13:52 Resp 18 03/28/17 10:40 BP 172/69 H 03/28/17 13:52 Pulse Ox 99 03/28/17 13:52 - Orders/Labs/Meds Orders: Active Orders 24 hr Category Date Time Status EKG 12 Lead [EKG Documentation Completion] [RC] STAT Care 03/28/17 11:18 Active Peripheral IV Care [RC] . DIRECTED Care 03/28/17 11:19 Active Abdomen Series w Chest 1V [CR] Stat Exams 03/28/17 11:19 Taken Hip Min 2V or 3V w Pelvis Lt [CR] Stat Exams 03/28/17 14:33 Taken Knee Min 4V Lt [CR] Stat Exams 03/28/17 14:33 Taken Peripheral IV Insertion Adult [OM.PC] Routine Oth 03/28/17 11:19 Ordered Labs: Laboratory Tests 03/28/17 03/28/17 03/28/17 Range/Units 11:55 11:55 13:28 WBC 5.86 (3.98-10.04) K/mm3 RBC 4.01 (3.98-5.22) M/mm3 Hgb 12.4 (11.2-15.7) gm/L Hct 35.6 (34.1-44.9) % MCV 88.8 (79.4-94.8) fl MCH 30.9 (25.6-32.2) pg MCHC 34.8 (32.2-35.5) g/dl RDW Std Deviation 43.3 (36.4-46.3) fL Plt Count 197 (182-369) K/mm3 MPV 8.7 L (9.4-12.3) fl Neut % (Auto) 84.1 H (34.0-71.1) % Lymph % (Auto) 7.0 L (19.3-51.7) % [place] % (Auto) 8.4 (4.7-12.5) % Eos % (Auto) 0.3 L (0.7-5.8) Baso % (Auto) 0.0 L (0.1-1.2) % Neut # (Auto) 4.93 (1.56-6.13) K/mm3 Lymph # (Auto) 0.41 L (1.18-3.74) K/mm3 [place] # (Auto) 0.49 H (0.24-0.36) K/mm3 Eos # (Auto) 0.02 L (0.04-0.36) K/mm3 Baso # (Auto) 0.00 L (0.01-0.08) K/mm3 Manual Slide Review Normal smear Sodium 130 L (136-145) mEq/L Potassium 3.6 (3.5-5.1) mEq/L Chloride 93 L (98-107) mEq/L Carbon Dioxide 27 (21-32) mEq/L Anion Gap 13.6 (5-15) BUN 24 H (7-18) mg/dL Creatinine 1.4 H (0.55-1.02) mg/dL Est Cr Clr Drug Dosing 27.37 mL/min Estimated GFR (MDRD) 36 (>60) mL/min BUN/Creatinine Ratio 17.1 (14-18) Glucose 112 (83-115) mg/dL Calcium 8.7 (8.5-10.1) mg/dL Total Bilirubin 1.5 H (0.2-1.0) mg/dL AST 23 (15-37) U/L ALT 21 (14-59) U/L Alkaline Phosphatase 37 L (46-116) U/L Troponin I < 0.017 (0.00-0.056) ng/mL Total Protein 6.1 L (6.4-8.2) g/dl Albumin 3.7 (3.4-5.0) g/dl Globulin 2.4 gm/dL Albumin/Globulin Ratio 1.5 (1-2) Lipase 243 (73-393) U/L Urine Color Yellow (Yellow) Urine Appearance Clear (Clear) Urine pH 8.0 (5.0-8.0) Ur Specific [place] 1.020 (1.005-1.030) Urine Protein Negative (Negative) Urine Glucose (UA) Negative (Negative) Urine Ketones Negative (Negative) Urine Occult Blood Negative (Negative) Urine Nitrite Negative (Negative) Urine Bilirubin Negative (Negative) Urine Urobilinogen 1.0 (0.2-1.0) Ur Leukocyte Esterase Negative (Negative) Urine RBC 0-5 (0-5) /hpf Urine WBC 0-5 (0-5) /hpf Ur Epithelial Cells 0-5 (0-5) /hpf Urine Bacteria Occasional (FEW) /hpf Urine Mucus Not seen (FEW) /hpf Meds: Medications Discontinued Medications Generic Name Dose Route Start Last Admin Trade Name Freq PRN Reason Stop Dose Admin Acetaminophen 650 mg 03/28/17 13:50 03/28/17 14:17 Tylenol PO 03/28/17 13:51 650 mg NOW ONE Administration Docusate Sodium 100 mg 03/28/17 13:07 03/28/17 13:48 Colace PO 03/28/17 13:08 100 mg ONETIME ONE Administration Fentanyl 25 mcg 03/28/17 13:00 03/28/17 13:44 Sublimaze IVPUSH 03/28/17 13:01 Not Given ONETIME ONE Sodium Chloride 500 mls @ 1,000 mls/hr 03/28/17 11:19 03/28/17 11:32 Normal Saline IV 03/28/17 11:48 1,000 mls/hr ONETIME ONE Administration Lorazepam 0.5 mg 03/28/17 13:00 03/28/17 13:45 Ativan IVPUSH 03/28/17 13:01 0.5 mg ONETIME ONE Administration Magnesium Hydroxide 30 ml 03/28/17 13:07 03/28/17 13:48 Milk Of Magnesia PO 03/28/17 13:08 30 ml ONETIME ONE Administration Ondansetron HCl 4 mg 03/28/17 11:19 03/28/17 11:31 Zofran IVPUSH 03/28/17 11:20 4 mg ONETIME ONE Administration Sodium Chloride 10 ml 03/28/17 11:19 03/28/17 11:32 Saline Flush FLUSH 10 ml ASDIRECTED PRN Administration Keep Vein Open - Re-Assessments/Exams Free Text/Narrative Re-Assessment/Exam: 03/28/17 19:37 X-ray of the knee shows degenerative changes. X-ray of the pelvis and hip do not show an acute abnormality. Patient was very anxious throughout her ED stay. I did give her a half a milligram of Ativan and she reported that her knee pain was actually much better after this intervention alone. We also gave another dose of milk of magnesia and stool softener. Her nausea has resolved. She's never had any abdominal pain. Suspect that her nausea and constipation may be related to her recent narcotic use for her knee pain. Dr. Wiley saw the patient in the emergency department and agrees that her pain is likely arthritis related and he will see her in clinic tomorrow. The patient already has an MRI scheduled for next week Saturday at 9 AM, I called the MRI scheduling personnel but we were not able to expedite her MRI. I explained to the patient that this is not needed emergently. The exam is not concerning for infection, there is no effusion. Departure - Departure Time of Disposition: 15:31 Disposition: Home, Self-Care 01 Clinical Impression: Acute pain of left knee Prescriptions: LORazepam [Ativan] 0.5 mg PO QPM PRN #4 tablet PRN Reason: muscle relaxation or insomnia Instructions: Knee Pain, [id number] Referrals: Rambo Dallas MD [Primary Care Provider] - Forms: ED Department Discharge Additional Instructions: 1. Take acetaminophen (Tylenol) as needed for pain 2. Use a heating pad on knee off and on as needed for pain 3. Follow up with Dr. Wiley tomorrow morning at 8:15 as planned 4. MRI on Saturday as planned 5. Take lorazepam (Ativan) at bedtime as needed for muscle relaxation/knee pain or difficulty sleeping due to pain. Do not take this medication with Ambien - the combination of these two medications could make you too confused. - My Orders Last 24 Hours: My Active Orders 03/28/17 11:18 EKG 12 Lead [EKG Documentation Completion] [RC] STAT 03/28/17 11:19 Peripheral IV Care [RC] . DIRECTED Abdomen Series w Chest 1V [CR] Stat Peripheral IV Insertion Adult [OM.PC] Routine 03/28/17 14:33 Hip Min 2V or 3V w Pelvis Lt [CR] Stat Knee Min 4V Lt [CR] Stat - Assessment/Plan Last 24 Hours: My Active Orders 03/28/17 11:18 EKG 12 Lead [EKG Documentation Completion] [RC] STAT 03/28/17 11:19 Peripheral IV Care [RC] . DIRECTED Abdomen Series w Chest 1V [CR] Stat Peripheral IV Insertion Adult [OM.PC] Routine 03/28/17 14:33 Hip Min 2V or 3V w Pelvis Lt [CR] Stat Knee Min 4V Lt [CR] Stat
[2017-03-28] MEDS ORDERED: LORazepam 2 MG/ML MDV IVPUSH ONE (13:00)
[2017-03-28] MEDS ORDERED: fentaNYL 100 MCG/2 ML SDV IVPUSH ONE (13:00)
[2017-03-28] MEDS ORDERED: Magnesium Hydroxide 400 MG/5 ML Susp 30 ML Cup PO ONE (13:07)
[2017-03-28] MEDS ORDERED: Docusate Sodium 100 MG Cap PO ONE (13:07)
[2017-03-28] MEDS ORDERED: Acetaminophen 325 MG Tab PO ONE (13:50)
[2017-03-28 13:53] VITALS: BP 172/69
--- NOTE | 2017-03-29 07:43 | CR ---
Pelvis and left hip: AP view of the pelvis was obtained as well as AP and frog-leg lateral views of the left hip. Comparison: Previous left hip radiograph of 10/27/08. Joint spaces within both hips are preserved. Slightly prominent superior acetabulum are seen which are a normal variant. Osteopenia is noted. Arterial calcification and phleboliths are seen within the pelvis. Nothing acute is seen. Impression: 1. Incidental findings. Diagnostic code #2
--- NOTE | 2017-03-29 07:43 | CR ---
Left knee: Four views of the left knee were obtained. Comparison: No prior left knee exam is available. Chondrocalcinosis is noted within the medial and lateral menisci. Mild arterial calcification is seen. No joint effusion is identified. Medial and lateral joint spaces are preserved. No fracture or other abnormality is seen. Impression: 1. Chondrocalcinosis is noted within both menisci. 2. Other incidental findings. Diagnostic code #2
--- NOTE | 2017-03-29 08:12 | CR ---
Abdominal series: Supine and upright views of the abdomen were obtained as well as frontal view of the chest. Comparison: Prior abdominal series of 01/06/17. Heart size and mediastinum are normal. Lungs are clear. Mild scoliosis is present within the spine. Numerous surgical clips are seen within the upper right abdomen. Bowel gas pattern appears normal. Mild vascular calcification is seen. Incidental phleboliths are noted within the pelvis. No free air is identified. Impression: 1. Incidental findings. Nothing acute is seen on abdominal series. No significant change is seen from previous study. Diagnostic code #2
== END 2017-03-28 15:44 | disposition home or self-care (01) ==
LOC: SUPCPDRO 10:30 → JD.ED 10:30
DX: M25.562 Pain in left knee (principal); I10 Essential (primary) hypertension; E78.00 Pure hypercholesterolemia, unspecified; K21.9 Gastro-esophageal reflux disease without esophagitis; F32.9 Major depressive disorder, single episode, unspecified; E03.9 Hypothyroidism, unspecified; Z79.899 Other long term (current) drug therapy; Z88.5 Allergy status to narcotic agent
CPT/HCPCS: 36415; 73502; 73564; 74022; 80053; 81001; 83690; 84484; 85025; 93005; 96361; 96374; 96375; 99285; A9270; J2060; J2405; J7040; J7050; 93010; 99284

== ENCOUNTER 2017-04-25 12:40 | Inpatient (IN) | payer MEDICARE, OTHER ==
[2017-04-25] MEDS: Sodium Chloride 0.9% 1,000 ML IV SCH ×2 (14:04→21:38)
--- NOTE | 2017-04-25 14:31 | EDM.PDOC ---
ED HPI GENERAL MEDICAL PROBLEM - General Chief Complaint: Gastrointestinal Problem Stated Complaint: SENT BY DR. DILLARD Time Seen by Provider: 04/25/17 13:03 Source of Information: Reports: Patient, Family (), RN Notes Reviewed - History of Present Illness INITIAL COMMENTS - FREE TEXT/NARRATIVE: 87 year old female comes in with generalized weakness, dizziness, nausea, no appetite, not eating or drinking well. She has not felt well for 1 to 2 weeks but much worse the last 3 to 4 days. No chest pain or difficulty breathing. No abd pain, vomiting or diarrhea. No vertigo. No focal weakness. Had labs at clinic 1 week ago, Na noted to be 123 at that time. No recent cough, sore throat, fever or chills. - Related Data Allergies Allergy/AdvReac Type Severity Reaction Status Date / Time ciprofloxacin Allergy Edema Verified 04/25/17 13:02 fentanyl Allergy Shortness Verified 04/25/17 13:02 of Breath Home Meds: Home Meds Omeprazole 20 mg PO DAILY 09/11/13 [History] Simvastatin [Zocor] 10 mg PO QPM 09/11/13 [History] Zolpidem [Ambien] 5 mg PO BEDTIME PRN 09/24/13 [History] Levothyroxine [Synthroid] 100 mg PO ACBRK 06/22/14 [History] Losartan/Hydrochlorothiazide [Losartan-HCTZ 100-25 MG] 25 - 100 mg PO DAILY [History] Acetaminophen [Tylenol Arthritis] 650 mg PO BID PRN 03/28/17 [History] Omeprazole 20 mg PO QPM PRN 03/28/17 [History] Past Medical History Other HEENT History: eye infections Cardiovascular History: Reports: High Cholesterol, Hypertension Other Cardiovascular History: phlebitis Angiogram . Gastrointestinal History: Reports: Diverticulosis, GERD, Hiatal Hernia, PUD Genitourinary History: Reports: Renal Calculus, Urinary Incontinence, Other ( See Below) Other Genitourinary History: bladder infection MEDIA COORDINATOR History: Reports: Musculoskeletal History: Reports: Osteoarthritis Neurological History: Reports: Vertigo Psychiatric History: Reports: Anxiety, Depression, Other (See Below) Other Psychiatric History: per pt she stopped taking meds because she thinks they dont do any good. 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, Renal Other Oncologic History: last chemo 2 years ago - Infectious Disease History Infectious Disease History: Reports: Chicken Pox - Past Surgical History HEENT Surgical History: Reports: Cataract Surgery Cardiovascular Surgical History: Reports: Other (See Below) Social & Family History - Family History Family Medical History: Noncontributory - Tobacco Use Smoking Status *Q: Never Smoker Second Hand Smoke Exposure: No - Caffeine Use Caffeine Use: Reports: None - Alcohol Use Days Per Week of Alcohol Use: 0 Number of Drinks Per Day: 0 Total Drinks Per Week: 0 - Recreational Drug Use Recreational Drug Use: No - Living Situation & Occupation Living situation: Reports: , with Spouse Occupation: Retired ED ROS GENERAL - Review of Systems Review Of Systems: See Below Constitutional: Denies: Fever, Chills, Diaphoresis HEENT: Denies: Sinus Problem, Throat Pain, Vertigo Respiratory: Denies: Shortness of Breath, Wheezing, Pleuritic Chest Pain, Cough Cardiovascular: Reports: Lightheadedness. Denies: Chest Pain, Syncope GI/Abdominal: Reports: Nausea. Denies: Abdominal Pain, Diarrhea, Hematochezia, Melena, Vomiting Musculoskeletal: Reports: No Symptoms Skin: Reports: No Symptoms Neurological: Reports: Dizziness, Headache (occasional), Tremors (today), Weakness (generalized). Denies: Numbness, Tingling, Trouble Speaking ED EXAM, GI/ABD - Physical Exam Exam: See Below General Appearance: Alert, Anxious Eyes: Bilateral: Normal Appearance Nose: Normal Inspection Throat/Mouth: Normal Inspection, Normal Oropharynx Head: Atraumatic. No: Facial Swelling Neck: Supple Respiratory/Chest: No Respiratory Distress, Lungs Clear, Normal Breath Sounds Cardiovascular: Regular Rate, Rhythm GI/Abdominal Exam: Soft, Non-Tender. No: Guarding Extremities: Normal Inspection. No: Normal Range of Motion, Leg Pain Neurological: Alert, Oriented, No Motor/Sensory Deficits Skin Exam: Warm, Dry, Normal Color Course - Vital Signs Last Recorded V/S: Last Vital Signs Temp 97.4 F 04/25/17 12:58 Pulse 81 04/25/17 12:58 Resp 18 04/25/17 12:58 BP 144/98 H 04/25/17 12:58 Pulse Ox 99 04/25/17 12:58 - Orders/Labs/Meds Orders: Active Orders 24 hr Category Date Time Status Sodium Chloride 0.9% [Normal Saline] 1,000 ml Med 04/25/17 13:45 Active IV ASDIRECTED Medication Orders Sodium Chloride (Normal Saline) 1,000 mls @ 150 mls/hr IV ASDIRECTED CELESTINE Last Admin: 04/25/17 14:04 Dose: 150 mls/hr Labs: Laboratory Tests 04/25/17 04/25/17 04/25/17 Range/Units 14:14 14:14 14:14 WBC 4.69 (3.98-10.04) K/mm3 RBC 3.78 L (3.98-5.22) M/mm3 Hgb 12.0 (11.2-15.7) gm/L Hct 33.1 L (34.1-44.9) % MCV 87.6 (79.4-94.8) fl MCH 31.7 (25.6-32.2) pg MCHC 36.3 H (32.2-35.5) g/dl RDW Std Deviation 46.4 H (36.4-46.3) fL Plt Count 192 (182-369) K/mm3 MPV 8.6 L (9.4-12.3) fl Neut % (Auto) 68.7 (34.0-71.1) % Lymph % (Auto) 17.1 L (19.3-51.7) % Meade % (Auto) 13.2 H (4.7-12.5) % Eos % (Auto) 0.4 L (0.7-5.8) Baso % (Auto) 0.2 (0.1-1.2) % Neut # (Auto) 3.22 (1.56-6.13) K/mm3 Lymph # (Auto) 0.80 L (1.18-3.74) K/mm3 Meade # (Auto) 0.62 H (0.24-0.36) K/mm3 Eos # (Auto) 0.02 L (0.04-0.36) K/mm3 Baso # (Auto) 0.01 (0.01-0.08) K/mm3 Sodium 123 L (136-145) mEq/L Potassium 3.6 (3.5-5.1) mEq/L Chloride 89 L (98-107) mEq/L Carbon Dioxide 21 (21-32) mEq/L Anion Gap 16.6 H (5-15) BUN 22 H (7-18) mg/dL Creatinine 1.3 H (0.55-1.02) mg/dL Est Cr Clr Drug Dosing 28.27 mL/min Estimated GFR (MDRD) 39 (>60) mL/min BUN/Creatinine Ratio 16.9 (14-18) Glucose 111 (83-115) mg/dL Calcium 9.0 (8.5-10.1) mg/dL Total Bilirubin 1.5 H (0.2-1.0) mg/dL AST 21 (15-37) U/L ALT 24 (14-59) U/L Alkaline Phosphatase 33 L (46-116) U/L Total Protein 6.5 (6.4-8.2) g/dl Albumin 3.8 (3.4-5.0) g/dl Globulin 2.7 gm/dL Albumin/Globulin Ratio 1.4 (1-2) Lipase 458 H (73-393) U/L TSH 3rd Generation 11.682 H (0.358-3.74) uIU/mL Meds: Medications Generic Name Dose Route Start Last Admin Trade Name Freq PRN Reason Stop Dose Admin Sodium Chloride 1,000 mls @ 150 mls/hr 04/25/17 13:45 04/25/17 14:04 Normal Saline IV 150 mls/hr ASDIRECTED CELESTINE Administration - Re-Assessments/Exams Free Text/Narrative Re-Assessment/Exam: 04/25/17 16:15. sodium came back at 123, TSH elevated at 11.7, Head CT was normal, will admit for further eval and treatment. Departure - Departure Time of Disposition: 16:06 Disposition: Home, Self-Care 01 Condition: Fair Clinical Impression: Anorexia, Hyponatremia syndrome Hypothyroidism Qualifiers: Hypothyroidism type: unspecified Qualified Code(s): E03.9 - Hypothyroidism, unspecified - Discharge Information Referrals: Rambo Dillard MD [Primary Care Provider] - Forms: ED Department Discharge ED Communication - Discussed Case With (1) Discussed Case With (1): Admitting Provider (Dr Ceja, decision to admit at about 16:20) - My Orders Last 24 Hours: My Active Orders 04/25/17 13:45 Sodium Chloride 0.9% [Normal Saline] 1,000 ml IV ASDIRECTED - Assessment/Plan Last 24 Hours: My Active Orders 04/25/17 13:45 Sodium Chloride 0.9% [Normal Saline] 1,000 ml IV ASDIRECTED
--- NOTE | 2017-04-25 14:54 | CT ---
Head CT Technique: Multiple axial sections through the brain were obtained. Intravenous contrast was not utilized. Comparison: No previous intracranial imaging. Findings: Ventricles along with basal cisterns and sulci over the convexities are mildly prominent. Minimal areas of diminished density is noted within the periventricular white matter compatible with small vessel ischemic demyelination change. No other abnormal parenchymal densities are seen. No evidence of intracranial hemorrhage. No midline shift or mass effect is seen. Bone window settings were reviewed which shows no acute calvarial abnormality. Visualized sinuses are clear. Impression: 1. Mild senescent change. 2. No acute intracranial abnormality is identified. Diagnostic code #2
--- NOTE | 2017-04-25 15:22 | CR ---
Abdomen: Supine and upright views of the abdomen were obtained. Comparison: Prior abdominal x-ray of 03/28/17. Bowel gas pattern appears normal. Numerous calcifications are seen within the pelvis likely representing phleboliths. Mild arterial calcification is seen. Numerous surgical clips are seen within the right abdomen. Mild degenerative change is noted within the spine. No free air is seen. Impression: 1. Incidental findings. Nothing acute is seen on two-view abdominal x-ray. Diagnostic code #2
[2017-04-25] MEDS ORDERED: Albuterol/Ipratropium 3.0-0.5 MG/3 ML Neb Soln NEB PRN (18:43)
[2017-04-25] MEDS ORDERED: Acetaminophen 325 MG Tab PO PRN (18:43)
[2017-04-25] MEDS ORDERED: Bisacodyl 5 MG Tab PO PRN (18:43)
[2017-04-25] MEDS ORDERED: Ondansetron 4 MG/2 ML SDV IV PRN (18:43)
[2017-04-25] MEDS ORDERED: Temazepam 7.5 MG Cap PO PRN (18:43)
[2017-04-25] MEDS ORDERED: Polyethylene Glycol 3350 Powder 17 GM Packet PO PRN (18:43)
[2017-04-25] MEDS ORDERED: Morphine 4 MG/ML Syringe IVPUSH PRN (18:43)
[2017-04-25] MEDS ORDERED: Docusate Sodium 100 MG Cap PO PRN (18:43)
[2017-04-25] MEDS ORDERED: Acetaminophen/HYDROcodone 325-5 MG Tab PO PRN (18:43)
[2017-04-25] MEDS ORDERED: Ondansetron 4 MG Tab.DIS PO PRN (18:43)
[2017-04-25] MEDS ORDERED: hydrALAZINE 20 MG/ML SDV IVPUSH PRN (18:53)
[2017-04-25] MEDS ORDERED: Metoprolol Tartrate 5 MG/5 ML SDV IVPUSH PRN (18:53)
--- NOTE | 2017-04-25 19:05 | PCM.HP ---
H&P History of Present Illness - General Date of Service: 04/25/17 Admit Problem/Dx: Admission Diagnosis/Problem Admission Diagnosis/Problem Hyponatremia Source of Information: Patient, Family (grand-daughter ), Old Records, Provider , RN, RN Notes Reviewed History Limitations: Reports: No Limitations - History of Present Illness Initial Comments - Free Text/Narative: Viktoriya Julian is an 87 yo female who presents to our ED today with generalized weakness, dizziness, nausea, no appetite, poor oral intake. Reports she is not felt well in 1-2 weeks but it has worsened the last 3-4 days. She denies chest pain or difficulty breathing. No abdominal pain, vomiting, diarrhea, vertigo, focal weakness. She reported to have labs performed at her PCP visit 1 week ago and her sodium was noted to be 123 at that time. Denies any recent cough, sore throat, fever, chills. On arrival ED temperature 97.4. Pulse was 81. Respirations 18. BP 144/98. Pulse ox 99%. Labs were obtained WBC was normal at 4.69. Hemoglobin 12.0. Hematocrit 33.1. She was normocytic. Platelets were 192,000. Neutrophils were 68.7%. Sodium was low at 123. Potassium low end of normal at 3.6. Chloride low at 89. Carbon dioxide normal at 21. Anion gap was high at 16.6. BUN is high at 22. Creatinine is high at 1.3. EGFR is 39. Glucose 111. Total bilirubin high at 1.5. AST is 21 ALT is 24 alkaline phosphatase is low at 33. Albumin is good at 3.8. Lipase was high at 458. TSH was very high at 11.682. head CT is obtained and shows mild senescent change. No acute intracranial abnormality is interpreted by Dr. Mcgraw, radiologist. Abdominal x -ray shows incidental findings, nothing acute. She carries a history of: HLD, HTN, diverticulosis, GERD, hiatal hernia, PUD, urinary incontinence, arthritis, vertigo, anxiety, depression, hypothyroidism, Hodgkin's renal lymphoma. She was never a smoker. She subsequently admitted to the medical floor observation status with telemetry. She is a full code. Her PCP is Dr. Dallas at [facility] in [place]. - Related Data Allergies/Adverse Reactions: Allergies Allergy/AdvReac Type Severity Reaction Status Date / Time ciprofloxacin Allergy Edema Verified 04/25/17 13:02 fentanyl Allergy Shortness Verified 04/25/17 13:02 of Breath Home Medications: Home Meds Omeprazole 20 mg PO DAILY 09/11/13 [History] Simvastatin [Zocor] 10 mg PO QPM 09/11/13 [History] Zolpidem [Ambien] 5 mg PO BEDTIME PRN 09/24/13 [History] Levothyroxine [Synthroid] 100 mg PO ACBRK 06/22/14 [History] Losartan/Hydrochlorothiazide [Losartan-HCTZ 100-25 MG] 25 - 100 mg PO DAILY [History] Acetaminophen [Tylenol Arthritis] 650 mg PO BID PRN 03/28/17 [History] Omeprazole 20 mg PO QPM PRN 03/28/17 [History] Past Medical History Other HEENT History: eye infections Cardiovascular History: Reports: High Cholesterol, Hypertension Other Cardiovascular History: phlebitis Angiogram . 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, Renal Other Oncologic History: last chemo 2 years ago - Infectious Disease History Infectious Disease History: Reports: Chicken Pox - Past Surgical History HEENT Surgical History: Reports: Cataract Surgery Cardiovascular Surgical History: Reports: Other (See Below) Social & Family History - Family History Family Medical History: Noncontributory - Tobacco Use Smoking Status *Q: Never Smoker Second Hand Smoke Exposure: No - Caffeine Use Caffeine Use: Reports: None - Alcohol Use Days Per Week of Alcohol Use: 0 Number of Drinks Per Day: 0 Total Drinks Per Week: 0 - Recreational Drug Use Recreational Drug Use: No - Living Situation & Occupation Living situation: Reports: , with Spouse Occupation: Retired H&P Review of Systems - Review of Systems: Review Of Systems: See Below Free Text/Narrative: In to see Viktoriya. Her is also in the room and he is quite demented. 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 She reports that nothing tastes good and she will vomit if she tries to eat anything. she reports this has been ongoing for some time. She states she has been dealing with shingles for quite some time as well. She has lesions on her buttocks and knee on the left side. Reportedly received knee injections earlier as I thought the pain might be joint related. She reports she was in see her primary care provider who stated that he believes she is getting better, however shingles may take some time. She reports she is taking all her medications as prescribed. She reports that she gets a painful feeling was unable to describe it to me. She states is a type of chest pain and also abdominal. Her TSH is extremely elevated. She does have a history of hypothyroidism. I popped back in later and her granddaughter arrived. We discussed her plan of care and lab findings. We talked more about the shingles. The patient states that there have been many times where she has thought about killing herself because the pain is so severe. She states she has thought several times about taking all of her sleepy meds. She does have a significant amount of stress in her life with taking care of her , and her other medical issues. She does have a history of anxiety and depression per the ED note, however it is noted that she quit taking her antidepressants as they made her feel bad. She is also reportedly stopped taking her gabapentin for her herpetic nerve pain. Her granddaughter spoke with me in the hallway in the said that she is legitimately concerned about her grandmother. She states there are multiple medications in the house and that her grandmother has made comments to her multiple times in the past about killing herself. I did discuss with the granddaughter that because her TSH is so high, this could be a symptom of the hypothyroidism. I did discuss a Dr. Mortensen consult and the granddaughter felt that that would be an excellent idea. Consult has been ordered. She denies any suicidal/homicidal ideation currently. General: Reports: Malaise, Weakness, Fatigue, Decreased Appetite. Denies: Fever , Chills, Diaphoresis HEENT: Reports: No Symptoms. Denies: Ear Pain, Eye Pain, Headaches, Hearing Changes, Rhinitis, Post Nasal Drip, Sinus Congestion, Sore Throat, Vertigo, Visual Changes Pulmonary: Reports: No Symptoms. Denies: Shortness of Breath, Wheezing, Pleuritic Chest Pain, Cough, Sputum Cardiovascular: Reports: Palpitations (occasionally "strange feeling in chest") , Lightheadedness. Denies: Chest Pain, Dyspnea on Exertion, Orthopnea, Edema, Syncope, Claudication, Blood Pressure Problem Gastrointestinal: Reports: Decreased Appetite, Nausea. Denies: Abdominal Pain, Constipation, Diarrhea, Distension, Hematemesis, Hematochezia, Melena, Stool Incontinence, Vomiting Genitourinary: Reports: No Symptoms. Denies: Dysuria, Frequency, Burning, Pain , Urgency Musculoskeletal: Reports: Leg Pain (left knee - herpes lesions ), Other (left buttocks pain - herpes outbreak ) Skin: Reports: No Symptoms Psychiatric: Reports: No Symptoms Neurological: Reports: Headache (occasional ), Tremors (occasional ), Weakness. Denies: Confusion, Numbness, Pre-Existing Deficit, Seizure, Tingling, Trouble Speaking, Difficulty Walking, Change in Speech Hematologic/Lymphatic: Reports: No Symptoms Immunologic: Reports: No Symptoms Exam - Exam Exam: See Below - Vital Signs Vital Signs: Last Vital Signs Temp 97.4 F 04/25/17 12:58 Pulse 81 04/25/17 12:58 Resp 18 04/25/17 12:58 BP 144/98 H 04/25/17 12:58 Pulse Ox 99 04/25/17 12:58 Weight: 132 lb - Exam Quality Assessment: DVT Prophylaxis General: Alert, Oriented, Cooperative. No: Mild Distress HEENT: PERRLA, Hearing Intact, Mucosa Moist & Turney, Nares Patent, Normal Nasal Septum, Posterior Pharynx Clear, Conjunctiva Clear, EOMI, EACs Clear, TMs Clear Neck: Supple, Trachea Midline Lungs: Clear to Auscultation, Normal Respiratory Effort Cardiovascular: Regular Rate, Regular Rhythm GI/Abdominal Exam: Normal Bowel Sounds, Soft, Non-Tender, No Organomegaly, No Distention, No Abnormal Bruit, No Mass, Pelvis Stable (Female) Exam: Deferred Rectal (Female) Exam: Deferred Back Exam: Normal Inspection, Full Range of Motion, Other (herpes lesions to left buttocks - lesions are cruseted over. Very painful per pt. report ) Extremities: Normal Range of Motion, No Pedal Edema, Normal Capillary Refill, Other (Herpes lesions to left knee - lesions are crusted over. Patient reports this is very tender area.) Peripheral Pulses: 2+: Posterior Tibial (L), Posterior Tibial (R), Dorsalis Pedis (L), Dorsalis Pedis (R), 3+: Radial (L), Radial (R) Skin: Warm, Dry, Intact Neurological: Cranial Nerves Intact (grossly ) Neuro Extensive - Mental Status: Alert, Oriented x3, Normal Mood/Affect, Normal Cognition, Memory Intact Neuro Extensive - Motor, Sensory, Reflexes: CN II-XII Intact Psychiatric: Alert, Normal Affect, Anxious, Depressed - Patient Data Result Diagrams: 04/25/17 14:14 04/25/17 14:14 *Q Meaningful Use (ADM) - VTE *Q VTE Criteria *Q: - Stroke *Q Stroke Criteria *Q: - AMI *Q AMI Criteria *Q: - Problem List (1) Hyponatremia syndrome SNOMED Code(s): 6561750 ICD Code: E87.1 - HYPO-OSMOLALITY AND HYPONATREMIA Status: Acute Priority : High Current Visit: Yes (2) Hypothyroidism SNOMED Code(s): 82642605 ICD Code: E03.9 - HYPOTHYROIDISM, UNSPECIFIED Status: Acute Priority: High Current Visit: Yes Qualifiers: Hypothyroidism type: unspecified Qualified Code(s): E03.9 - Hypothyroidism , unspecified (3) Dehydration SNOMED Code(s): 45740153 ICD Code: E86.0 - DEHYDRATION Status: Acute Current Visit: No (4) Hx of Hodgkins lymphoma SNOMED Code(s): 267759156 ICD Code: Z85.71 - PERSONAL HISTORY OF HODGKIN LYMPHOMA Status: Chronic Priority: Low Current Visit: No (5) Serum lipase elevation SNOMED Code(s): 421781857 ICD Code: R74.8 - ABNORMAL LEVELS OF OTHER SERUM ENZYMES Status: Acute Current Visit: Yes (6) Herpes zoster SNOMED Code(s): 6603889 ICD Code: B02.9 - ZOSTER WITHOUT COMPLICATIONS Status: Acute Priority: Medium Current Visit: Yes Qualifiers: Herpes zoster complications: without complications Qualified Code(s): B02.9 - Zoster without complications Problem List Initiated/Reviewed/Updated: Yes Orders Last 24hrs: Active Orders 24 hr Category Date Time Status Ambulate [RC] PER UNIT ROUTINE Care 04/25/17 18:48 Active Antiembolic Devices [RC] PER UNIT ROUTINE Care 04/25/17 18:50 Active Cardiac Monitoring [RC] CONTINUOUS Care 04/25/17 18:47 Active EKG 12 Lead [EKG Documentation Completion] [RC] ROUTINE Care 04/25/17 18:57 Active Height and Weight [RC] DAILY Care 04/25/17 18:43 Active Intake and Output [RC] QSHIFT Care 04/25/17 18:47 Active Oxygen Therapy [RC] PRN Care 04/25/17 18:43 Active Pulse Oximetry [RC] PRN Care 04/25/17 18:48 Active RT Aerosol Therapy [RC] ASDIRECTED Care 04/25/17 18:51 Active Up With Assistance [RC] ASDIRECTED Care 04/25/17 18:43 Active VTE/DVT Education [RC] PER UNIT ROUTINE Care 04/25/17 18:43 Active Vital Signs [RC] Q4H Care 04/25/17 18:43 Active Consult to Case Management [CONS] Routine Cons 04/25/17 18:43 Active Consult to Patient Information Coordinator [CONS] Routine Cons 04/25/17 18:43 Active OT Evaluation and Treatment [CONS] Routine Cons 04/25/17 18:43 Active PT Evaluation and Treatment [CONS] Routine Cons 04/25/17 18:43 Active Heart Healthy Diet [DIET] Diet 04/25/17 Dinner Active BASIC METABOLIC PANEL,BMP [CHEM] AM Lab 04/26/17 05:11 Ordered BASIC METABOLIC PANEL,BMP [CHEM] AM Lab 04/27/17 05:11 Ordered BASIC METABOLIC PANEL,BMP [CHEM] AM Lab 04/28/17 05:11 Ordered BASIC METABOLIC PANEL,BMP [CHEM] AM Lab 04/29/17 05:11 Ordered CBC WITH AUTO DIFF [HEME] AM Lab 04/26/17 05:11 Ordered CBC WITH AUTO DIFF [HEME] AM Lab 04/27/17 05:11 Ordered CBC WITH AUTO DIFF [HEME] AM Lab 04/28/17 05:11 Ordered CBC WITH AUTO DIFF [HEME] AM Lab 04/29/17 05:11 Ordered INFLUENZA A+B AG SCREEN [RM] Routine Lab 04/25/17 18:53 Uncollected MAGNESIUM [CHEM] AM Lab 04/26/17 05:11 Ordered MAGNESIUM [CHEM] AM Lab 04/27/17 05:11 Ordered MAGNESIUM [CHEM] AM Lab 04/28/17 05:11 Ordered MAGNESIUM [CHEM] AM Lab 04/29/17 05:11 Ordered Acetaminophen [Tylenol] Med 04/25/17 18:43 Active 650 mg PO Q4H PRN Acetaminophen/HYDROcodone [[place] 325-5 MG] Med 04/25/17 18:43 Active 1 tab PO Q4H PRN Albuterol/Ipratropium [DuoNeb 3.0-0.5 MG/3 ML] Med 04/25/17 18:43 Active 3 ml NEB Q4H PRN Bisacodyl [Dulcolax] Med 04/25/17 18:43 Active 5 mg PO DAILY PRN Docusate Sodium [Colace] Med 04/25/17 18:43 Active 100 mg PO BID PRN Docusate Sodium/Sennosides [Senna Plus] Med 04/25/17 18:43 Active 1 tab PO BID PRN Enoxaparin [Lovenox] Med 04/26/17 09:00 Ordered 30 mg SUBCUT DAILY Magnesium Rep Pharmacy to Dose [Pharmacy to Dose - Med 04/25/17 19:00 Ordered Magnesium Replacement] 1 dose .XX ASDIRECTED Metoprolol Tartrate [Lopressor] Med 04/25/17 18:53 Ordered 5 mg IVPUSH Q4H PRN Morphine Med 04/25/17 18:43 Ordered 2 mg IVPUSH Q2H PRN Ondansetron [Zofran ODT] Med 04/25/17 18:43 Ordered 4 mg PO Q6H PRN Ondansetron [Zofran] Med 04/25/17 18:43 Ordered 4 mg IV Q6H PRN Polyethylene Glycol 3350 [MiraLAX] Med 04/25/17 18:43 Ordered 17 gm PO DAILY PRN Potassium Rep Pharmacy to Dose [Pharmacy to Dose - Med 04/25/17 19:00 Ordered Potassium Replacement] 1 dose .XX ASDIRECTED Temazepam [Restoril] Med 04/25/17 18:43 Ordered 7.5 mg PO BEDTIME PRN hydrALAZINE [Apresoline] Med 04/25/17 18:53 Active 10 mg IVPUSH Q6H PRN Antiembolic Hose [OM.PC] Per Unit Routine Oth 04/25/17 18:48 Ordered Precautions [COMM] Routine Oth 04/25/17 18:52 Ordered Medication Orders Acetaminophen (Tylenol) 650 mg PO Q4H PRN PRN Reason: Pain (Mild 1-3)/fever Hydrocodone Bitart/Acetaminophen ([place] 325-5 Mg) 1 tab PO Q4H PRN PRN Reason: Pain (moderate 4-6) Albuterol/Ipratropium (Duoneb 3.0-0.5 Mg/3 Ml) 3 ml NEB Q4H PRN PRN Reason: Shortness Of Breath/wheezing Bisacodyl (Dulcolax) 5 mg PO DAILY PRN PRN Reason: Constipation Docusate Sodium (Colace) 100 mg PO BID PRN PRN Reason: Constipation Enoxaparin Sodium (Lovenox) 30 mg SUBCUT DAILY [facility] Hydralazine HCl (Apresoline) 10 mg IVPUSH Q6H PRN PRN Reason: Hypertension Sodium Chloride (Normal Saline) 1,000 mls @ 150 mls/hr IV ASDIRECTED [facility] Last Admin: 04/25/17 14:04 Dose: 150 mls/hr Magnesium Sulfate (Pharmacy To Dose - Magnesium Replacement) 1 dose .XX ASDIRECTED [facility] Metoprolol Tartrate (Lopressor) 5 mg IVPUSH Q4H PRN PRN Reason: Tachycardia Morphine Sulfate (Morphine) 2 mg IVPUSH Q2H PRN PRN Reason: Pain (severe 7-10) Stop: 04/26/17 18:50 Ondansetron HCl (Zofran Odt) 4 mg PO Q6H PRN PRN Reason: nausea, able to take PO Ondansetron HCl (Zofran) 4 mg IV Q6H PRN PRN Reason: Nausea/Vomiting Polyethylene Glycol (Miralax) 17 gm PO DAILY PRN PRN Reason: Constipation Potassium Chloride (Pharmacy To Dose - Potassium Replacement) 1 dose .XX ASDIRECTED [facility] Senna/Docusate Sodium (Senna Plus) 1 tab PO BID PRN PRN Reason: Constipation Temazepam (Restoril) 7.5 mg PO BEDTIME PRN PRN Reason: Sleep Assessment/Plan Comment:: I/P: Hyponatremia -Sodium 123 at prior clinic visit and in ED - appears to be somewhat chronic -Pt. reports poor oral intake - "Nothing tastes good." -She reports she becomes nauseous when attempting to eat -Query anorexia vs. difficulty eating due to medical conditions -Weight appears somewhat stable over recent visits -Hx/o Hodgkin's lymphoma -IV fluids -Consider thermotabs after obtaining AM labs Dehydration -Hct 33.1, Anion gap 16.6, Creatinine 1.3 -Reports minimal oral intake -Encourage oral hydration -IV fluids Hypothyroidism -Reports generalized weakness, abdominal pain, and symptoms that are "difficult to describe" but wax/wane -On home synthroid - suspect medical non-compliance -Patient reports she has been taking med as prescribed -Grand-daughter reports patient will frequently self dose medications -TSH 11.682 -Free T4 ordered -Resume home synthroid -Will need f/u with PCP to re-check THS levels after discharge Elevated lipase -lipase 458 -Liver enzymes good -WBC normal -Denies abdominal pain -Very poor oral intake per patient report -Suspect due to poor nutritional status -F/U lipase ordered in AM -Clear liquid diet - advance as tolerated -Consider abdominal CT in AM -IV fluids Herpes zoster -Patches on left knee and buttocks -Crusted over -Prescribed pain meds and Gabapentin however she has stopped taking them -Reports pain which is improving very slowly Query depression/suicidal ideation -Hx/o depression/anxiety in past -Reportedly stopped medication because they "didn't do any good" -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: Poor 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, 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, hx/o hodgkin' s lymphoma -Reports to provider "I have thought about killing myself multiple times due to shingles pain." -Reports she would take all of her "sleeping pills." to do it -Denies any current suicidal/homicidal ideation -Grand-daughter reports she is genuinely concerned as "patient has talked about this many times to me." -"She has lots of medications around her house." -Festus consult ordered Chronic: HLD HTN - stable, home meds and PRN BP meds Diverticulosis GERD - stable Hiatal Hernia PUD Urinary incontinence OA Anxiety - as above Depression - as above Hypothyroidism - as above Hx/o Hodgkin's Lymphoma Plan: Admit to medical floor observation with telemetry PT/OT CM/SW for discharge planning - grand-daughter has concerns over patient caring for self/ Dietary consult DVT prophylaxis: Lovenox/TUTU Hose GI prophylaxis: Pepcid - hold home PPI due to elevated lipase Other orders as above Routine AM labs Home medications as ordered Code status: Full code; Her PCP is Dr. Dallas at [facility] here in [place]
[2017-04-25] MEDS ORDERED: Morphine 2 MG/ML Syringe IVPUSH PRN (21:24)
[2017-04-26] MEDS ORDERED: traMADol 50 MG Tab **OWN MED PO PRN (00:59)
[2017-04-26] MEDS ORDERED: LORazepam 0.5 MG Tab **OWN MED PO PRN (01:18)
[2017-04-26] MEDS: Gabapentin 100 MG Cap **OWN MED PO SCH ×5 (01:35→21:28)
[2017-04-26] MEDS: Sodium Chloride 0.9% 1,000 ML IV SCH ×3 (04:30→21:48)
[2017-04-26] MEDS: Levothyroxine 100 MCG Tab **OWN MED PO SCH (06:15)
[2017-04-26] MEDS ORDERED: LOSARTAN PO SCH (09:00)
[2017-04-26] MEDS ORDERED: Famotidine 20 MG Tab PO SCH (09:00)
[2017-04-26] MEDS ORDERED: HYDROCHLOROTHIAZIDE PO SCH (09:00)
[2017-04-26] MEDS ORDERED: Magnesium Sulfate/Water 2 GM in Premix Bag 1 BAG IV ONE (09:30)
[2017-04-26] MEDS ORDERED: Acetaminophen 325 MG Tab PO PRN (09:43)
[2017-04-26] MEDS: Potassium Chloride 20 MEQ Tab.ER PO SCH ×2 (09:57→13:52)
[2017-04-26] MEDS: Enoxaparin 30 MG/0.3 ML Syringe SUBCUT SCH (09:58)
[2017-04-26] MEDS ORDERED: Pantoprazole 40 MG Tab.CR PO SCH (10:00)
--- NOTE | 2017-04-26 13:57 | PCM.PN ---
- General Info Date of Service: 04/26/17 Admission Dx/Problem (Free Text): Admission Diagnosis/Problem Admission Diagnosis/Problem Hyponatremia Viktoriya is seen this morning resting comfortably in bed, present in room. States she feels "much better" today. Slept well. No further nausea and appetite is starting to return. No other complaints or concerns. No confusion. Functional Status: Reports: Pain Controlled, Tolerating Diet, Ambulating, Urinating. Denies: New Symptoms - Review of Systems General: Reports: Weakness (generalized) HEENT: Reports: No Symptoms Pulmonary: Reports: No Symptoms. Denies: Shortness of Breath, Cough Cardiovascular: Reports: No Symptoms. Denies: Chest Pain, Palpitations, Lightheadedness Gastrointestinal: Reports: No Symptoms, Nausea (was nauseous last night, none this morning). Denies: Abdominal Pain, Diarrhea Neurological: Reports: No Symptoms Psychiatric: Reports: No Symptoms - Patient Data Vitals - Most Recent: Last Vital Signs Temp 97.2 F 04/26/17 10:21 Pulse 73 04/26/17 10:21 Resp 18 04/26/17 10:21 BP 139/106 H 04/26/17 10:21 Pulse Ox 97 04/26/17 10:21 Weight - Most Recent: 130 lb 11.2 oz Med Orders - Current: Current Medications Acetaminophen (Tylenol) 650 mg PO Q4H PRN PRN Reason: Pain (Mild 1-3)/fever Last Admin: 04/25/17 22:56 Dose: 650 mg Acetaminophen (Tylenol) 650 mg PO BID PRN PRN Reason: Pain (severe 7-10) Albuterol/Ipratropium (Duoneb 3.0-0.5 Mg/3 Ml) 3 ml NEB Q4H PRN PRN Reason: Shortness Of Breath/wheezing Bisacodyl (Dulcolax) 5 mg PO DAILY PRN PRN Reason: Constipation Docusate Sodium (Colace) 100 mg PO BID PRN PRN Reason: Constipation Enoxaparin Sodium (Lovenox) 30 mg SUBCUT DAILY [facility] Last Admin: 04/26/17 09:58 Dose: 30 mg Famotidine (Pepcid) 20 mg PO DAILY [facility] Gabapentin (Neurontin) 100 mg PO TID [facility] Last Admin: 04/26/17 09:57 Dose: 100 mg Hydralazine HCl (Apresoline) 10 mg IVPUSH Q6H PRN PRN Reason: Hypertension Sodium Chloride (Normal Saline) 1,000 mls @ 100 mls/hr IV ASDIRECTED [facility] Last Admin: 04/26/17 11:45 Dose: 100 mls/hr Levothyroxine Sodium (Synthroid) 100 mcg PO ACBRK [facility] Last Admin: 04/26/17 06:15 Dose: 100 mcg Lorazepam (Ativan) 0.5 mg PO QID PRN PRN Reason: Anxiety Last Admin: 04/26/17 01:36 Dose: 0.5 mg Magnesium Sulfate (Pharmacy To Dose - Magnesium Replacement) 0 dose .XX ASDIRECTED PRN PRN Reason: RX TO WATCH MAG LEVELS Metoprolol Tartrate (Lopressor) 5 mg IVPUSH Q4H PRN PRN Reason: Tachycardia Morphine Sulfate (Morphine) 0.5 mg IVPUSH Q2H PRN PRN Reason: Severe pain (7-10) Losartan/Hydrochlorothiazide 100-25 Mg Tab Own Med 0 mg PO DAILY [facility] Last Admin: 04/26/17 09:57 Dose: 100 mg Ondansetron HCl (Zofran Odt) 4 mg PO Q6H PRN PRN Reason: nausea, able to take PO Ondansetron HCl (Zofran) 4 mg IV Q6H PRN PRN Reason: Nausea/Vomiting Pantoprazole Sodium (Protonix) 40 mg PO ACBREAKFAST [facility] Polyethylene Glycol (Miralax) 17 gm PO DAILY PRN PRN Reason: Constipation Potassium Chloride (Pharmacy To Dose - Potassium Replacement) 0 dose .XX ASDIRECTED PRN PRN Reason: RX TO WATCH K LEVELS Potassium Chloride (Klor-Con M20) 20 meq PO Q4H [facility] Stop: 04/26/17 14:01 Last Admin: 04/26/17 09:57 Dose: 20 meq Senna/Docusate Sodium (Senna Plus) 1 tab PO BID PRN PRN Reason: Constipation Simvastatin (Zocor) 10 mg PO QPM [facility] Tramadol HCl (Ultram) 50 mg PO Q6H PRN PRN Reason: Pain Zolpidem Tartrate (Ambien) 5 mg PO BEDTIME PRN PRN Reason: Insomnia Last Admin: 04/25/17 23:10 Dose: 5 mg Discontinued Medications Hydrocodone Bitart/Acetaminophen ([place] 325-5 Mg) 1 tab PO Q4H PRN PRN Reason: Pain (moderate 4-6) Famotidine (Pepcid) 20 mg PO BID [facility] Last Admin: 04/26/17 10:00 Dose: 20 mg Sodium Chloride (Normal Saline) 1,000 mls @ 150 mls/hr IV ASDIRECTED [facility] Last Admin: 04/26/17 04:30 Dose: 150 mls/hr Magnesium Sulfate 2 gm/ Premix 50 mls @ 25 mls/hr IV ONETIME ONE Stop: 04/26/17 11:29 Last Admin: 04/26/17 09:56 Dose: 25 mls/hr Morphine Sulfate (Morphine) 2 mg IVPUSH Q2H PRN PRN Reason: Pain (severe 7-10) Stop: 04/26/17 18:50 Temazepam (Restoril) 7.5 mg PO BEDTIME PRN PRN Reason: Sleep - Exam Quality Assessment: DVT Prophylaxis General: Alert, Oriented, Cooperative, No Acute Distress HEENT: Pupils Equal, EOMI, Mucous Membr. Moist/[place] Neck: Supple Lungs: Clear to Auscultation, Normal Respiratory Effort Cardiovascular: Regular Rate, Regular Rhythm GI/Abdominal Exam: Normal Bowel Sounds, Soft, Non-Tender (Female) Exam: Deferred Extremities: Normal Inspection, No Pedal Edema, Normal Capillary Refill Peripheral Pulses: 2+: Dorsalis Pedis (L), Dorsalis Pedis (R) Neurological: No New Focal Deficit Psy/Mental Status: Alert, Normal Affect, Normal Mood - Problem List & Annotations (1) Hyponatremia SNOMED Code(s): 03557510 Code(s): E87.1 - HYPO-OSMOLALITY AND HYPONATREMIA Status: Acute Priority : High Current Visit: Yes (2) Pancytopenia SNOMED Code(s): 130245857 Code(s): D61.818 - OTHER PANCYTOPENIA Status: Chronic Priority: High Current Visit: Yes (3) Anorexia SNOMED Code(s): 72228130 Code(s): R63.0 - ANOREXIA Status: Acute Priority: High Current Visit: Yes (4) Herpes zoster SNOMED Code(s): 5119797 Code(s): B02.9 - ZOSTER WITHOUT COMPLICATIONS Status: Resolved Priority: Medium Current Visit: Yes Qualifiers: Herpes zoster complications: without complications Qualified Code(s): B02.9 - Zoster without complications (5) Hypothyroidism SNOMED Code(s): 16954637 Code(s): E03.9 - HYPOTHYROIDISM, UNSPECIFIED Status: Chronic Priority: High Current Visit: Yes Qualifiers: Hypothyroidism type: unspecified Qualified Code(s): E03.9 - Hypothyroidism , unspecified (6) Serum lipase elevation SNOMED Code(s): 453479196 Code(s): R74.8 - ABNORMAL LEVELS OF OTHER SERUM ENZYMES Status: Resolved Current Visit: Yes - Problem List Review Problem List Initiated/Reviewed/Updated: Yes - Plan Plan:: I/P: Hyponatremia -Sodium 123 at prior clinic visit and in ED - appears to be chronic -Pt. reports poor oral intake - "Nothing tastes good."---starting to improve with hydrationn -She reports she becomes nauseous when attempting to eat--states this is resolved this mroning -Query anorexia vs. difficulty eating due to medical conditions -Weight appears stable over recent visits -Hx/o Hodgkin's lymphoma -IV fluids ---decrease rate to 100cc/hr today. -Consider thermotabs Dehydration -Hct 33.1, Anion gap 16.6, Creatinine 1.3 -Reports minimal oral intake -Encourage oral hydration -IV fluids Pancytopenia -? acute on chronic, ? nutritional -Iron studies, B12, folic acid all WNL. Occult stool ordered. Peripheral smear ordered. -Hx of HL -Monitor platelets with lovenox CKD- stage 3 -Cont monitoring, fluids Hypomagnesemia -Mag 1.5 -Replete and monitor with daily labs, K+ WNL today Hypothyroidism -Reports generalized weakness, abdominal pain, and symptoms that are "difficult to describe" but wax/wane -On home synthroid - suspect medical non-compliance -->Patient reports she has been taking med as prescribed-->Grand-daughter reports patient will frequently self dose medications -TSH 11.682, Free T4 ordered and WNL -Resume home synthroid; Recommend f/u with PCP- recheck TSH in 6-8 wks Elevated lipase--Resolved, 200's now -lipase 458, LFT's WNL, WBC normal -Denies abdominal pain, Very poor oral intake per patient report, Suspect due to poor nutritional status -Clear liquid diet - advance as tolerated---soft diet this am Herpes zoster--resolving -Patches on left knee and buttocks, Crusted over -Prescribed pain meds and Gabapentin however she has stopped taking them -Reports pain which is improving very slowly -During acute outbreak patient reports she had suicidal ideation of wanting to kill herself via taking her sleeping pills as "pain was too much". She is no longer suicidal. 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 Mortensen consult ordered Chronic: HLD HTN - stable, home meds and PRN BP meds Diverticulosis GERD - stable Hiatal Hernia PUD Urinary incontinence OA Anxiety - as above Depression - as above Hypothyroidism - as above Hx/o Hodgkin's Lymphoma Plan: Change to MST status; meet's inpatient criteria PT/OT and ambulation CM/SW for discharge planning - grand-daughter has concerns over patient caring for self/, Home care services/[facility] services Dietary consult DVT prophylaxis: Lovenox/TUTU Hose GI prophylaxis: Pepcid - hold home PPI due to elevated lipase Other orders as above Routine AM labs Home medications as ordered Code status: Full code; Her PCP is Dr. Dallas at [facility] here in [place]
[2017-04-26] MEDS: Mupirocin Oint 22 GM Tube TOP SCH ×2 (16:29→21:29)
[2017-04-26] MEDS: Simvastatin 10 MG Tab PO SCH ×2 (16:30→17:09)
[2017-04-27] MEDS: Levothyroxine 100 MCG Tab **OWN MED PO SCH (05:32)
--- NOTE | 2017-04-27 06:49 | PCM.PN ---
- General Info Date of Service: 04/27/17 Admission Dx/Problem (Free Text): Admission Diagnosis/Problem Admission Diagnosis/Problem Hyponatremia Subjective Update: Follow Up Functional Status: Reports: Pain Controlled, Tolerating Diet, Ambulating, Urinating. Denies: New Symptoms Pain Score: 5 - Review of Systems General: Denies: Fever, Weakness, Fatigue, Malaise, Chills HEENT: Reports: No Symptoms Pulmonary: Denies: Shortness of Breath Cardiovascular: Denies: Chest Pain Gastrointestinal: Denies: Abdominal Pain, Nausea, Vomiting Genitourinary: Reports: No Symptoms Musculoskeletal: Reports: Leg Pain (left lower extremity: from knee up to her hip ), Joint Pain Skin: Denies: Cyanosis, Diaphoresis, Rash Neurological: Reports: No Symptoms. Denies: Difficulty Walking, Weakness, Gait Disturbance Psychiatric: Reports: Confusion, Anxiety, Hallucinations Systems Review Comment:: No significant overnight or acute issues. She slept good. Her pain is controlled. Her appetite is slowly coming back. She reports no new complaints. - Patient Data Vitals - Most Recent: Last Vital Signs Temp 37.3 C 04/27/17 03:51 Pulse 77 04/27/17 03:51 Resp 17 04/27/17 03:51 BP 128/84 04/27/17 03:51 Pulse Ox 0 L 04/27/17 03:51 Weight - Most Recent: 59.466 kg I&O - Last 24 Hours: Intake & Output 04/26/17 04/26/17 04/27/17 14:59 22:59 06:59 Intake Total 2333 1143 Balance 2333 1143 Med Orders - Current: Current Medications Acetaminophen (Tylenol) 650 mg PO Q4H PRN PRN Reason: Pain (Mild 1-3)/fever Last Admin: 04/25/17 22:56 Dose: 650 mg Acetaminophen (Tylenol) 650 mg PO BID PRN PRN Reason: Pain (severe 7-10) Albuterol/Ipratropium (Duoneb 3.0-0.5 Mg/3 Ml) 3 ml NEB Q4H PRN PRN Reason: Shortness Of Breath/wheezing Bisacodyl (Dulcolax) 5 mg PO DAILY PRN PRN Reason: Constipation Docusate Sodium (Colace) 100 mg PO BID PRN PRN Reason: Constipation Enoxaparin Sodium (Lovenox) 30 mg SUBCUT DAILY [facility] Last Admin: 04/26/17 09:58 Dose: 30 mg Famotidine (Pepcid) 20 mg PO DAILY [facility] Gabapentin (Neurontin) 100 mg PO TID [facility] Last Admin: 04/26/17 21:28 Dose: 100 mg Hydralazine HCl (Apresoline) 10 mg IVPUSH Q6H PRN PRN Reason: Hypertension Sodium Chloride (Normal Saline) 1,000 mls @ 100 mls/hr IV ASDIRECTED [facility] Last Admin: 04/26/17 21:48 Dose: 100 mls/hr Levothyroxine Sodium (Synthroid) 100 mcg PO ACBRK [facility] Last Admin: 04/27/17 05:32 Dose: 100 mcg Lorazepam (Ativan) 0.5 mg PO QID PRN PRN Reason: Anxiety Last Admin: 04/26/17 01:36 Dose: 0.5 mg Magnesium Sulfate (Pharmacy To Dose - Magnesium Replacement) 0 dose .XX ASDIRECTED PRN PRN Reason: RX TO WATCH MAG LEVELS Metoprolol Tartrate (Lopressor) 5 mg IVPUSH Q4H PRN PRN Reason: Tachycardia Morphine Sulfate (Morphine) 0.5 mg IVPUSH Q2H PRN PRN Reason: Severe pain (7-10) Mupirocin (Bactroban Oint) 0 gm TOP BID [facility] Stop: 05/01/17 15:46 Last Admin: 04/26/17 21:29 Dose: 1 applic Ondansetron HCl (Zofran Odt) 4 mg PO Q6H PRN PRN Reason: nausea, able to take PO Ondansetron HCl (Zofran) 4 mg IV Q6H PRN PRN Reason: Nausea/Vomiting Polyethylene Glycol (Miralax) 17 gm PO DAILY PRN PRN Reason: Constipation Potassium Chloride (Pharmacy To Dose - Potassium Replacement) 0 dose .XX ASDIRECTED PRN PRN Reason: RX TO WATCH K LEVELS Senna/Docusate Sodium (Senna Plus) 1 tab PO BID PRN PRN Reason: Constipation Simvastatin (Zocor) 10 mg PO QPM [facility] Last Admin: 04/26/17 17:09 Dose: Not Given Tramadol HCl (Ultram) 50 mg PO Q6H PRN PRN Reason: Pain Zolpidem Tartrate (Ambien) 5 mg PO BEDTIME PRN PRN Reason: Insomnia Last Admin: 04/26/17 21:45 Dose: 5 mg Discontinued Medications Hydrocodone Bitart/Acetaminophen ([place] 325-5 Mg) 1 tab PO Q4H PRN PRN Reason: Pain (moderate 4-6) Famotidine (Pepcid) 20 mg PO BID [facility] Last Admin: 04/26/17 10:00 Dose: 20 mg Sodium Chloride (Normal Saline) 1,000 mls @ 150 mls/hr IV ASDIRECTED [facility] Last Admin: 04/26/17 04:30 Dose: 150 mls/hr Magnesium Sulfate 2 gm/ Premix 50 mls @ 25 mls/hr IV ONETIME ONE Stop: 04/26/17 11:29 Last Admin: 04/26/17 09:56 Dose: 25 mls/hr Morphine Sulfate (Morphine) 2 mg IVPUSH Q2H PRN PRN Reason: Pain (severe 7-10) Stop: 04/26/17 18:50 Losartan/Hydrochlorothiazide 100-25 Mg Tab Own Med 0 mg PO DAILY [facility] Last Admin: 04/26/17 09:57 Dose: 100 mg Pantoprazole Sodium (Protonix) 40 mg PO ACBREAKFAST [facility] Last Admin: 04/26/17 15:43 Dose: Not Given Potassium Chloride (Klor-Con M20) 20 meq PO Q4H [facility] Stop: 04/26/17 14:01 Last Admin: 04/26/17 13:52 Dose: 20 meq Temazepam (Restoril) 7.5 mg PO BEDTIME PRN PRN Reason: Sleep - Exam General: Alert, Oriented, Cooperative, No Acute Distress HEENT: Pupils Equal, Pupils Reactive, EOMI, Mucous Membr. Moist/[place] Neck: Supple, Trachea Midline Lungs: Clear to Auscultation, Normal Respiratory Effort Cardiovascular: Regular Rate, Regular Rhythm GI/Abdominal Exam: Normal Bowel Sounds, Soft, Non-Tender, No Organomegaly, No Distention, No Abnormal Bruit, No Mass (Female) Exam: Deferred Back Exam: Normal Inspection, Decreased Range of Motion Extremities: Normal Inspection, Normal Range of Motion, Non-Tender, No Pedal Edema, Normal Capillary Refill Peripheral Pulses: 2+: Dorsalis Pedis (L), Dorsalis Pedis (R) Skin: Dry, Intact Neurological: No New Focal Deficit Psy/Mental Status: Alert, Normal Affect, Normal Mood - Problem List Review Problem List Initiated/Reviewed/Updated: Yes - Plan Plan:: I/P: Acute: Hyponatremia -Sodium 123 at prior clinic visit and in ED - appears to be chronic (She is on HCTZ)--> now 134 -Pt. reports poor oral intake - "Nothing tastes good."---starting to improve with hydrationn -She reports she becomes nauseous when attempting to eat--states this is resolved this mroning -Query anorexia vs. difficulty eating due to medical conditions -Weight appears stable over recent visits -Hx/o Hodgkin's lymphoma -Continue IV fluids -Consider thermotabs Pancytopenia -? acute on chronic, ? nutritional -Iron studies, B12, folic acid all WNL. Occult stool ordered. Peripheral smear ordered. -Hx of HL -Monitor platelets with lovenox Subclinical Hypothyroidism -Reports generalized weakness, abdominal pain, and symptoms that are "difficult to describe" but wax/wane -On home synthroid - suspect medical non-compliance -->Patient reports she has been taking med as prescribed-->Grand-daughter reports patient will frequently self dose medications -TSH 11.682, Free T4 ordered and WNL -Resume home synthroid; Recommend f/u with PCP- recheck TSH in 6-8 wks -Increased dose to 125 mcg po daily starting in AM Herpes zoster--resolving -Patches on left knee and buttocks, Crusted over -Prescribed pain meds and Gabapentin however she has stopped taking them -Reports pain which is improving very slowly -During acute outbreak patient reports she had suicidal ideation of wanting to kill herself via taking her sleeping pills as "pain was too much". She is no longer suicidal. 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 Mortensen consult-recommended no medication but spiritual consult Elevated lipase--Resolved, 200's now -lipase 458, LFT's WNL, WBC normal -Denies abdominal pain, Very poor oral intake per patient report, Suspect due to poor nutritional status -Clear liquid diet - advance as tolerated---soft diet this am Chronic: HLD HTN - stable, home meds and PRN BP meds Diverticulosis GERD - stable Hiatal Hernia PUD Urinary incontinence OA CKD Stage 3 Anxiety - as above Depression - as above Hypothyroidism - as above Hx/o Hodgkin's Lymphoma Plan: She is clinically stable Continue current treatment to include PT/OT Routine AM labs DVT prophylaxis: Lovenox/TUTU Hose GI prophylaxis: Pepcid - hold home PPI due to elevated lipase Additional orders as above CM/SW for discharge planning - grand-daughter has concerns over patient caring for self/, Home care services/[facility] services Unclear about d/c care plans but if she does go back home, she will be set up with [facility] services Code status: Full code; Her PCP is Dr. Dallas at [facility] here in [place]
[2017-04-27] MEDS: Sodium Chloride 0.9% 1,000 ML IV SCH ×2 (07:57→18:00)
[2017-04-27] MEDS: Famotidine 20 MG Tab PO SCH (09:18)
[2017-04-27] MEDS: Gabapentin 100 MG Cap **OWN MED PO SCH ×3 (09:18→21:12)
[2017-04-27] MEDS: Mupirocin Oint 22 GM Tube TOP SCH ×2 (09:19→21:14)
[2017-04-27] MEDS: Enoxaparin 30 MG/0.3 ML Syringe SUBCUT SCH (09:21)
[2017-04-27] MEDS: Simvastatin 10 MG Tab PO SCH (18:16)
[2017-04-28] MEDS: Sodium Chloride 0.9% 1,000 ML IV SCH ×3 (03:10→23:15)
--- NOTE | 2017-04-28 06:40 | PCM.PN ---
- General Info Date of Service: 04/28/17 Admission Dx/Problem (Free Text): Admission Diagnosis/Problem Admission Diagnosis/Problem Hyponatremia Subjective Update: Follow Up Functional Status: Reports: Pain Controlled, Tolerating Diet, Ambulating, Urinating. Denies: New Symptoms - Review of Systems General: Denies: Fever, Weakness, Fatigue, Malaise, Chills HEENT: Reports: No Symptoms Pulmonary: Denies: Shortness of Breath Cardiovascular: Denies: Chest Pain Gastrointestinal: Denies: Abdominal Pain, Nausea, Vomiting Genitourinary: Reports: No Symptoms Musculoskeletal: Reports: No Symptoms Skin: Denies: Mottled, Pallor, Diaphoresis Neurological: Denies: Confusion, Difficulty Walking, Weakness, Gait Disturbance Psychiatric: Reports: Depression. Denies: Confusion, Anxiety, Agitation, Hallucinations, Suicidal Ideation Systems Review Comment:: She had a good night but woke up this morning melancholic/depressed mode and started crying. She states, she did not want to move to [place] where her son is. She got so much to lose here in [place]. Her vitals are otherwise stable. She reports no acute issues. - Patient Data Vitals - Most Recent: Last Vital Signs Temp 36.6 C 04/28/17 03:51 Pulse 74 04/28/17 03:51 Resp 16 04/28/17 03:51 BP 106/81 04/28/17 03:51 Pulse Ox 99 04/28/17 03:51 Weight - Most Recent: 61.008 kg I&O - Last 24 Hours: Intake & Output 04/27/17 04/27/17 04/28/17 14:59 22:59 06:59 Intake Total 90 1489 1291 Output Total 925 Balance 90 1489 366 Lab Results Last 24 Hours: Laboratory Results - last 24 hr 04/27/17 04/27/17 04/28/17 Range/Units 06:21 06:21 05:23 WBC 3.45 L 3.20 L (3.98-10.04) K/mm3 RBC 3.68 L 3.46 L (3.98-5.22) M/mm3 Hgb 11.5 10.8 L (11.2-15.7) gm/L Hct 33.6 L 31.8 L (34.1-44.9) % MCV 91.3 91.9 (79.4-94.8) fl MCH 31.3 31.2 (25.6-32.2) pg MCHC 34.2 34.0 (32.2-35.5) g/dl RDW Std Deviation 49.3 H 49.5 H (36.4-46.3) fL Plt Count 163 L 149 L (182-369) K/mm3 MPV 8.7 L 8.5 L (9.4-12.3) fl Neut % (Auto) 66.6 67.2 (34.0-71.1) % Lymph % (Auto) 20.3 18.4 L (19.3-51.7) % Hughes % (Auto) 11.9 11.6 (4.7-12.5) % Eos % (Auto) 0.6 L 2.2 (0.7-5.8) Baso % (Auto) 0.3 0.3 (0.1-1.2) % Neut # (Auto) 2.30 2.15 (1.56-6.13) K/mm3 Lymph # (Auto) 0.70 L 0.59 L (1.18-3.74) K/mm3 Hughes # (Auto) 0.41 H 0.37 H (0.24-0.36) K/mm3 Eos # (Auto) 0.02 L 0.07 (0.04-0.36) K/mm3 Baso # (Auto) 0.01 0.01 (0.01-0.08) K/mm3 Sodium 134 L (136-145) mEq/L Potassium 4.1 (3.5-5.1) mEq/L Chloride 102 (98-107) mEq/L Carbon Dioxide 23 (21-32) mEq/L Anion Gap 13.1 (5-15) BUN 16 (7-18) mg/dL Creatinine 1.2 H (0.55-1.02) mg/dL Est Cr Clr Drug Dosing 30.42 mL/min Estimated GFR (MDRD) 42 (>60) mL/min BUN/Creatinine Ratio 13.3 L (14-18) Glucose 99 (83-115) mg/dL Calcium 8.0 L (8.5-10.1) mg/dL Magnesium 1.8 (1.8-2.4) mg/dl C-Reactive Protein < 0.2 (<1.0) mg/dL Med Orders - Current: Current Medications Acetaminophen (Tylenol) 650 mg PO Q4H PRN PRN Reason: Pain (Mild 1-3)/fever Last Admin: 04/25/17 22:56 Dose: 650 mg Acetaminophen (Tylenol) 650 mg PO BID PRN PRN Reason: Pain (severe 7-10) Albuterol/Ipratropium (Duoneb 3.0-0.5 Mg/3 Ml) 3 ml NEB Q4H PRN PRN Reason: Shortness Of Breath/wheezing Bisacodyl (Dulcolax) 5 mg PO DAILY PRN PRN Reason: Constipation Docusate Sodium (Colace) 100 mg PO BID PRN PRN Reason: Constipation Enoxaparin Sodium (Lovenox) 30 mg SUBCUT DAILY [facility] Last Admin: 04/27/17 09:21 Dose: 30 mg Famotidine (Pepcid) 20 mg PO DAILY [facility] Last Admin: 04/27/17 09:18 Dose: 20 mg Gabapentin (Neurontin) 100 mg PO TID [facility] Last Admin: 04/27/17 21:12 Dose: 100 mg Hydralazine HCl (Apresoline) 10 mg IVPUSH Q6H PRN PRN Reason: Hypertension Sodium Chloride (Normal Saline) 1,000 mls @ 100 mls/hr IV ASDIRECTED [facility] Last Admin: 04/28/17 03:10 Dose: 100 mls/hr Levothyroxine Sodium (Levothyroxine) 125 mcg PO ACBRK [facility] Lorazepam (Ativan) 0.5 mg PO QID PRN PRN Reason: Anxiety Last Admin: 04/26/17 01:36 Dose: 0.5 mg Losartan Potassium (Cozaar) 100 mg PO DAILY [facility] Magnesium Sulfate (Pharmacy To Dose - Magnesium Replacement) 0 dose .XX ASDIRECTED PRN PRN Reason: RX TO WATCH MAG LEVELS Metoprolol Tartrate (Lopressor) 5 mg IVPUSH Q4H PRN PRN Reason: Tachycardia Morphine Sulfate (Morphine) 0.5 mg IVPUSH Q2H PRN PRN Reason: Severe pain (7-10) Mupirocin (Bactroban Oint) 0 gm TOP BID [facility] Stop: 05/01/17 15:46 Last Admin: 04/27/17 21:14 Dose: 1 gram Ondansetron HCl (Zofran Odt) 4 mg PO Q6H PRN PRN Reason: nausea, able to take PO Ondansetron HCl (Zofran) 4 mg IV Q6H PRN PRN Reason: Nausea/Vomiting Polyethylene Glycol (Miralax) 17 gm PO DAILY PRN PRN Reason: Constipation Potassium Chloride (Pharmacy To Dose - Potassium Replacement) 0 dose .XX ASDIRECTED PRN PRN Reason: RX TO WATCH K LEVELS Senna/Docusate Sodium (Senna Plus) 1 tab PO BID PRN PRN Reason: Constipation Simvastatin (Zocor) 10 mg PO QPM [facility] Last Admin: 04/27/17 18:16 Dose: 10 mg Tramadol HCl (Ultram) 50 mg PO Q6H PRN PRN Reason: Pain Zolpidem Tartrate (Ambien) 5 mg PO BEDTIME PRN PRN Reason: Insomnia Last Admin: 04/27/17 21:12 Dose: 5 mg Discontinued Medications Hydrocodone Bitart/Acetaminophen ([place] 325-5 Mg) 1 tab PO Q4H PRN PRN Reason: Pain (moderate 4-6) Famotidine (Pepcid) 20 mg PO BID [facility] Last Admin: 04/26/17 10:00 Dose: 20 mg Sodium Chloride (Normal Saline) 1,000 mls @ 150 mls/hr IV ASDIRECTED [facility] Last Admin: 04/26/17 04:30 Dose: 150 mls/hr Magnesium Sulfate 2 gm/ Premix 50 mls @ 25 mls/hr IV ONETIME ONE Stop: 04/26/17 11:29 Last Admin: 04/26/17 09:56 Dose: 25 mls/hr Levothyroxine Sodium (Synthroid) 100 mcg PO ACBRK [facility] Last Admin: 04/27/17 05:32 Dose: 100 mcg Morphine Sulfate (Morphine) 2 mg IVPUSH Q2H PRN PRN Reason: Pain (severe 7-10) Stop: 04/26/17 18:50 Losartan/Hydrochlorothiazide 100-25 Mg Tab Own Med 0 mg PO DAILY [facility] Last Admin: 04/26/17 09:57 Dose: 100 mg Pantoprazole Sodium (Protonix) 40 mg PO ACBREAKFAST [facility] Last Admin: 04/26/17 15:43 Dose: Not Given Potassium Chloride (Klor-Con M20) 20 meq PO Q4H [facility] Stop: 04/26/17 14:01 Last Admin: 04/26/17 13:52 Dose: 20 meq Temazepam (Restoril) 7.5 mg PO BEDTIME PRN PRN Reason: Sleep - Exam General: Alert, Oriented, Cooperative, No Acute Distress HEENT: Pupils Equal, Pupils Reactive, EOMI, Mucous Membr. Moist/Peggs Neck: Supple, Trachea Midline, No JVD Lungs: Clear to Auscultation, Normal Respiratory Effort Cardiovascular: Regular Rate, Regular Rhythm GI/Abdominal Exam: Normal Bowel Sounds, Soft, Non-Tender, No Organomegaly, No Distention, No Abnormal Bruit, No Mass (Female) Exam: Deferred Back Exam: Normal Inspection, Decreased Range of Motion Extremities: Normal Inspection, Normal Range of Motion, Non-Tender, No Pedal Edema, Normal Capillary Refill Peripheral Pulses: 2+: Dorsalis Pedis (L), Dorsalis Pedis (R) Skin: Warm, Dry, Intact Neurological: No New Focal Deficit Psy/Mental Status: Alert, Depressed. No: Anxious, Agitated, Suicidal Ideation, Hallucinations - Problem List Review Problem List Initiated/Reviewed/Updated: Yes - My Orders Last 24 Hours: My Active Orders 04/27/17 07:50 Consult to Spiritual Care [CONS] Routine 04/28/17 06:00 Levothyroxine 125 mcg PO ACBRK 04/28/17 09:00 Losartan [Cozaar] 100 mg PO DAILY - Plan Plan:: I/P: Acute: Subclinical Hypothyroidism -Reports generalized weakness, abdominal pain, and symptoms that are "difficult to describe" but wax/wane -On home synthroid - suspect medical non-compliance -->Patient reports she has been taking med as prescribed-->Grand-daughter reports patient will frequently self dose medications -TSH 11.682, Free T4 ordered and WNL -Resume home synthroid; Recommend f/u with PCP- recheck TSH in 6-8 wks -Increased dose to 125 mcg po daily starting in AM Herpes Zoster--resolving -Patches on left knee and buttocks, Crusted over -Prescribed pain meds and Gabapentin however she has stopped taking them -Reports pain which is improving very slowly -During acute outbreak patient reports she had suicidal ideation of wanting to kill herself via taking her sleeping pills as "pain was too much". She is no longer suicidal. Pancytopenia -? acute on chronic, ? nutritional -Iron studies, B12, folic acid all WNL. Occult stool ordered. Peripheral smear ordered. -Has Hx/o Hodgkin's Lymphoma -Platelet 149, stable; will continue lovenox -Monitor platelets with lovenox Situational Depression -Spiritual Care consult -Follow up Dr. 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 Mortensen consult-recommended no medication but spiritual consult Elevated lipase--Resolved, 200's now -lipase 458, LFT's WNL, WBC normal -Denies abdominal pain, Very poor oral intake per patient report, Suspect due to poor nutritional status -Clear liquid diet - advance as tolerated---soft diet this am S/p Hyponatremia -Sodium 123 at prior clinic visit and in ED - appears to be chronic (She is on HCTZ)--> now 134 -Pt. reports poor oral intake - "Nothing tastes good."---starting to improve with hydrationn -She reports she becomes nauseous when attempting to eat--states this is resolved this [place] -Query anorexia vs. difficulty eating due to medical conditions -Weight appears stable over recent visits -Hx/o Hodgkin's lymphoma -Continue IV fluids -Consider thermotabs Chronic: HLD HTN - stable, home meds and PRN BP meds Diverticulosis GERD - stable Hiatal Hernia PUD Urinary incontinence OA CKD Stage 3 Anxiety - as above Depression - as above Hypothyroidism - as above Hx/o Hodgkin's Lymphoma Plan: She remains clinically stable Continue current treatment to include PT/OT Routine AM labs DVT prophylaxis: Lovenox/TUTU Hose GI prophylaxis: Pepcid - hold home PPI due to elevated lipase Additional orders as above CM/SW for discharge planning - grand-daughter has concerns over patient caring for self/, Home care services/HHC services Unclear about d/c care plans but if she does go back home, she will be set up with HHC services; will wait further input from CM/SW tomorrow Code status: Full code; Her PCP is Dr. Dallas at [facility] here in [place] LOS anticipate > 96 hrs for possible NH/[facility] A placement. Spoke to her daughter today, she will inquire at [facility] for possible placement. Informed her, SW would probably be able to help her more tomorrow regarding financially reasonable placement.
[2017-04-28] MEDS: Levothyroxine 125 MCG Tab PO SCH (08:18)
[2017-04-28] MEDS: Losartan 100 MG Tab PO SCH (08:18)
[2017-04-28] MEDS: Gabapentin 100 MG Cap **OWN MED PO SCH ×3 (08:19→21:17)
[2017-04-28] MEDS: Famotidine 20 MG Tab PO SCH (08:20)
[2017-04-28] MEDS: Mupirocin Oint 22 GM Tube TOP SCH ×2 (08:21→21:18)
[2017-04-28] MEDS: Enoxaparin 30 MG/0.3 ML Syringe SUBCUT SCH (08:23)
[2017-04-28] MEDS: Magnesium Oxide 400 MG Tab PO SCH ×3 (12:40→21:17)
[2017-04-28] MEDS: Simvastatin 10 MG Tab PO SCH (18:18)
[2017-04-29] MEDS: Levothyroxine 125 MCG Tab PO SCH (06:30)
--- NOTE | 2017-04-29 08:02 | CONS ---
CONSULTING PHYSICIAN: James Mortensen MD DATE OF CONSULTATION: 04/27/2017 This is a 60-minute inpatient clinical event. IDENTIFICATION: The patient is an 87-year-old female who is admitted to the inpatient Med/Surg Unit [facility] in [place], [place] on 04/25/2017. She is seen for psychiatric evaluation. CHIEF COMPLAINT: "I was not feeling good." HISTORY OF PRESENT ILLNESS: The patient is an 87-year-old female who is admitted to the inpatient medical unit at [facility] in [place], [place] secondary to decreased appetite, decreased sleep and increased weakness and dizziness. Since being admitted, the patient is stating that she is "feeling much better," since getting rehydrated and getting nutrition. The patient was having a bout of shingles and she has mild hyponatremia. She has been also given electrolytes. She feels that she is getting stronger too. The original assessment was for depression and possible suicidal ideation. The patient denies any suicidal ideation and homicidal ideation at this point in time. She also states that she was feeling depressed and "a little bit anxious because I didn't know what was going on." She states "generally when I am feeling good, I do not have any depression, anxiety and I just go about my daily business, putzing around the house and reading and taking care of my . I would like to stay busy." The patient denies any illicit substances or excessive alcohol use, complicating the clinical picture, stating "I have never drank in my life." She states that she was given a sleeping pill by Dr. Dallas, her primary MD, and staff is reporting that this is Ambien, but this Ambien has been discontinued, and she does have an antianxiety agent, which appears to be low-dose Ativan that she can take on an as-needed basis when she is at home, but she is not feeling that this is causing any problems and staff reports that she does not take this medication too often. MEDICATIONS: At time of presentation. 1. Ambien. 2. Ativan p.r.n. ALLERGIES: 1. Cipro. 2. Fentanyl. PAST MEDICAL HISTORY: 1. Arthritis. 2. Shingles. 3. Hyponatremia. REVIEW OF SYSTEMS: Aside from musculoskeletal, immune, and metabolic, all other major organ systems are negative at this point in time for acute difficulties or complications. FAMILY PSYCHIATRIC AND CD HISTORY: None reported. PAST PSYCHIATRIC AND CD HISTORY: Essentially negative. The patient denies any psychiatric hospitalizations or chemical dependency treatment. Denies any suicide attempts or self-injurious behaviors. PAST PSYCHIATRIC DIAGNOSIS: Includes anxiety and depression. Primary MD is Dr. Umana. PAST PSYCHIATRIC MEDICATION HISTORY: Significant for Ambien and Ativan. SOCIAL HISTORY: The patient was born and raised in [place], [place]. She currently lives in [place] with her . 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 Her worked in [employer]. The couple have 2 children, 1 lives in [place], [place], and another lives up in [place], and they have a granddaughter who lives in [place], whom they are very close with. The patient enjoys reading and watching TV and spending time with her . She is Yarsanism in terms of her checo formation. MENTAL STATUS EXAM: The patient is an 87-year-old, soft-spoken, white female, in no apparent distress. Speech is of regular rate and rhythm. The patient is cognitively oriented x3. Psychomotor activity is within normal limits. There are no abnormal motor movements or tics observed. Gait and station are not observed. This patient is lying in bed during the course of the interview. Mood is "good." Affect is optimal for the purposes of the followup interview. There is no behavioral or stated evidence of acute suicidal or homicidal ideation or acute psychotic, delusional, or paranoid symptoms. Thought processes are organized. There are no manic symptoms or loose associations evident. Judgment and insight appear unimpaired at this point in time. Motivation for help is good. IMPRESSION: [place] I: 1. Depression, not otherwise specified, F32.9. 2. Anxiety disorder, not otherwise specified, F41.9. [place] II: None. [place] III: 1. Shingles. 2. Hyponatremia. 3. History of work-related arthritis. [place] IV: [id number]. [place] V: 55-70. PLAN: 1. Discontinue Ambien as this medication actually more prone to cause sleep disturbances, particularly in the elderly population rather than help slowly with sleep initiation and maintenance. 2. We will have the patient review dose of the Ativan with staff attending, the primary treatment team, as well as outpatient primary doctor and if this medication is kept on a low dose of 0.25 times 1-2 b.i.d. p.r.n., then it sightly okay to continue, if the patient feels it is beneficial for her, but any higher dose would be discouraged given the patient's advanced age and issues with weakness and dizziness. 3. Other medication is prescribed and dosed by the patient's primary medical treatment team and outpatient primary MD. 4. Recommend pastoral guidance for the patient while she remains on medical unit. 5. The patient does have persistent depression and anxiety going on either with treatment would recommend perhaps a low dose of Remeron going forward as this will definitely help with mood and have an antianxiety effect essentially seen and also stimulate appetite which was complaint for the patient during the interview, although she does feel that this is getting better as well. 6. We will continue to follow up with the patient on an as-needed basis while the patient remains on the inpatient Med/Surg Unit. 7. We will follow up with the patient sooner, if any complications in the interim. 8. Recommend the patient to follow up with her outpatient primary MD, when she is discharged back to the community to assess her overall function efficacy of her current treatment plan. 9. Crisis plan is in place. MMODAL /[id number]
[2017-04-29] MEDS: Enoxaparin 30 MG/0.3 ML Syringe SUBCUT SCH (08:17)
[2017-04-29] MEDS: Losartan 100 MG Tab PO SCH (08:18)
[2017-04-29] MEDS: Famotidine 20 MG Tab PO SCH (08:18)
[2017-04-29] MEDS: Gabapentin 100 MG Cap **OWN MED PO SCH (08:18)
[2017-04-29] MEDS: Mupirocin Oint 22 GM Tube TOP SCH (08:19)
[2017-04-29] MEDS: Sodium Chloride 0.9% 1,000 ML IV SCH (08:20)
--- NOTE | 2017-04-29 08:46 | PCM.PN ---
- General Info Date of Service: 04/29/17 Admission Dx/Problem (Free Text): Admission Diagnosis/Problem Admission Diagnosis/Problem Hyponatremia Patient initially seen ambulating halls with PT this morning, doing well. No complaints/concerns, denies pain. Is SBA with FWW with PT. No nursing concerns. Dr. Mortensen, Psychiatry note reviewed with medication recommendations for chronic depression/anxiety. Will address changes/recommendations. Functional Status: Reports: Pain Controlled, Tolerating Diet, Ambulating, Urinating, Incentive Spirometry. Denies: New Symptoms - Review of Systems General: Reports: No Symptoms, Weakness (improved to resolved) HEENT: Reports: No Symptoms Pulmonary: Reports: No Symptoms. Denies: Shortness of Breath, Cough Cardiovascular: Reports: No Symptoms. Denies: Chest Pain Gastrointestinal: Reports: No Symptoms. Denies: Abdominal Pain Genitourinary: Reports: No Symptoms Musculoskeletal: Reports: No Symptoms Skin: Reports: No Symptoms Neurological: Reports: No Symptoms. Denies: Dizziness Psychiatric: Reports: Depression, Anxiety - Patient Data Vitals - Most Recent: Last Vital Signs Temp 97.7 F 04/29/17 08:06 Pulse 77 04/29/17 08:07 Resp 16 04/29/17 08:06 BP 141/73 H 04/29/17 08:18 Pulse Ox 100 04/29/17 08:07 Weight - Most Recent: 134 lb 1.6 oz I&O - Last 24 Hours: Intake & Output 04/28/17 04/29/17 04/29/17 22:59 06:59 14:59 Intake Total 2047 1601 Output Total 2100 1050 Balance -53 551 Lab Results Last 24 Hours: Laboratory Results - last 24 hr 04/29/17 04/29/17 Range/Units 06:08 06:08 WBC 3.18 L (3.98-10.04) K/mm3 RBC 3.38 L (3.98-5.22) M/mm3 Hgb 10.6 L (11.2-15.7) gm/L Hct 31.2 L (34.1-44.9) % MCV 92.3 (79.4-94.8) fl MCH 31.4 (25.6-32.2) pg MCHC 34.0 (32.2-35.5) g/dl RDW Std Deviation 49.2 H (36.4-46.3) fL Plt Count 153 L (182-369) K/mm3 MPV 8.0 L (9.4-12.3) fl Neut % (Auto) 70.9 (34.0-71.1) % Lymph % (Auto) 16.0 L (19.3-51.7) % Gates % (Auto) 11.6 (4.7-12.5) % Eos % (Auto) 0.9 (0.7-5.8) Baso % (Auto) 0.3 (0.1-1.2) % Neut # (Auto) 2.25 (1.56-6.13) K/mm3 Lymph # (Auto) 0.51 L (1.18-3.74) K/mm3 Gates # (Auto) 0.37 H (0.24-0.36) K/mm3 Eos # (Auto) 0.03 L (0.04-0.36) K/mm3 Baso # (Auto) 0.01 (0.01-0.08) K/mm3 Sodium 137 (136-145) mEq/L Potassium 4.1 (3.5-5.1) mEq/L Chloride 105 (98-107) mEq/L Carbon Dioxide 24 (21-32) mEq/L Anion Gap 12.1 (5-15) BUN 13 (7-18) mg/dL Creatinine 1.0 (0.55-1.02) mg/dL Est Cr Clr Drug Dosing 37.34 mL/min Estimated GFR (MDRD) 52 (>60) mL/min BUN/Creatinine Ratio 13.0 L (14-18) Glucose 109 (83-115) mg/dL Calcium 8.0 L (8.5-10.1) mg/dL Magnesium 1.8 (1.8-2.4) mg/dl C-Reactive Protein < 0.2 (<1.0) mg/dL Med Orders - Current: Current Medications Acetaminophen (Tylenol) 650 mg PO Q4H PRN PRN Reason: Pain (Mild 1-3)/fever Last Admin: 04/25/17 22:56 Dose: 650 mg Acetaminophen (Tylenol) 650 mg PO BID PRN PRN Reason: Pain (severe 7-10) Albuterol/Ipratropium (Duoneb 3.0-0.5 Mg/3 Ml) 3 ml NEB Q4H PRN PRN Reason: Shortness Of Breath/wheezing Bisacodyl (Dulcolax) 5 mg PO DAILY PRN PRN Reason: Constipation Docusate Sodium (Colace) 100 mg PO BID PRN PRN Reason: Constipation Enoxaparin Sodium (Lovenox) 30 mg SUBCUT DAILY [facility] Last Admin: 04/29/17 08:17 Dose: 30 mg Famotidine (Pepcid) 20 mg PO DAILY [facility] Last Admin: 04/29/17 08:18 Dose: 20 mg Gabapentin (Neurontin) 100 mg PO TID [facility] Last Admin: 04/29/17 08:18 Dose: 100 mg Hydralazine HCl (Apresoline) 10 mg IVPUSH Q6H PRN PRN Reason: Hypertension Sodium Chloride (Normal Saline) 1,000 mls @ 100 mls/hr IV ASDIRECTED [facility] Last Admin: 04/29/17 08:20 Dose: 100 mls/hr Levothyroxine Sodium (Levothyroxine) 125 mcg PO ACBRK [facility] Last Admin: 04/29/17 06:30 Dose: 125 mcg Lorazepam (Ativan) 0.25 mg PO BID [facility] Losartan Potassium (Cozaar) 100 mg PO DAILY [facility] Last Admin: 04/29/17 08:18 Dose: 100 mg Magnesium Sulfate (Pharmacy To Dose - Magnesium Replacement) 0 dose .XX ASDIRECTED PRN PRN Reason: RX TO WATCH MAG LEVELS Metoprolol Tartrate (Lopressor) 5 mg IVPUSH Q4H PRN PRN Reason: Tachycardia Mirtazapine (Remeron) 7.5 mg PO BEDTIME [facility] Morphine Sulfate (Morphine) 0.5 mg IVPUSH Q2H PRN PRN Reason: Severe pain (7-10) Mupirocin (Bactroban Oint) 0 gm TOP BID [facility] Stop: 05/01/17 15:46 Last Admin: 04/29/17 08:19 Dose: 1 gram Ondansetron HCl (Zofran Odt) 4 mg PO Q6H PRN PRN Reason: nausea, able to take PO Ondansetron HCl (Zofran) 4 mg IV Q6H PRN PRN Reason: Nausea/Vomiting Polyethylene Glycol (Miralax) 17 gm PO DAILY PRN PRN Reason: Constipation Potassium Chloride (Pharmacy To Dose - Potassium Replacement) 0 dose .XX ASDIRECTED PRN PRN Reason: RX TO WATCH K LEVELS Senna/Docusate Sodium (Senna Plus) 1 tab PO BID PRN PRN Reason: Constipation Simvastatin (Zocor) 10 mg PO QPM [facility] Last Admin: 04/28/17 18:18 Dose: 10 mg Tramadol HCl (Ultram) 50 mg PO Q6H PRN PRN Reason: Pain Discontinued Medications Hydrocodone Bitart/Acetaminophen ([place] 325-5 Mg) 1 tab PO Q4H PRN PRN Reason: Pain (moderate 4-6) Famotidine (Pepcid) 20 mg PO BID [facility] Last Admin: 04/26/17 10:00 Dose: 20 mg Sodium Chloride (Normal Saline) 1,000 mls @ 150 mls/hr IV ASDIRECTED [facility] Last Admin: 04/26/17 04:30 Dose: 150 mls/hr Magnesium Sulfate 2 gm/ Premix 50 mls @ 25 mls/hr IV ONETIME ONE Stop: 04/26/17 11:29 Last Admin: 04/26/17 09:56 Dose: 25 mls/hr Levothyroxine Sodium (Synthroid) 100 mcg PO ACBRK [facility] Last Admin: 04/27/17 05:32 Dose: 100 mcg Lorazepam (Ativan) 0.5 mg PO QID PRN PRN Reason: Anxiety Last Admin: 04/26/17 01:36 Dose: 0.5 mg Magnesium Oxide (Magnesium Oxide) 400 mg PO TID [facility] Stop: 04/28/17 21:01 Last Admin: 04/28/17 21:17 Dose: 400 mg Morphine Sulfate (Morphine) 2 mg IVPUSH Q2H PRN PRN Reason: Pain (severe 7-10) Stop: 04/26/17 18:50 Losartan/Hydrochlorothiazide 100-25 Mg Tab Own Med 0 mg PO DAILY [facility] Last Admin: 04/26/17 09:57 Dose: 100 mg Pantoprazole Sodium (Protonix) 40 mg PO ACBREAKFAST [facility] Last Admin: 04/26/17 15:43 Dose: Not Given Potassium Chloride (Klor-Con M20) 20 meq PO Q4H [facility] Stop: 04/26/17 14:01 Last Admin: 04/26/17 13:52 Dose: 20 meq Temazepam (Restoril) 7.5 mg PO BEDTIME PRN PRN Reason: Sleep Zolpidem Tartrate (Ambien) 5 mg PO BEDTIME PRN PRN Reason: Insomnia Last Admin: 04/28/17 21:45 Dose: 5 mg - Exam Quality Assessment: DVT Prophylaxis General: Alert, Oriented, Cooperative, No Acute Distress, Other (smiling and talkative) HEENT: Pupils Equal, EOMI, Mucous Membr. Moist/[place] Lungs: Clear to Auscultation, Normal Respiratory Effort Cardiovascular: Regular Rate, Regular Rhythm GI/Abdominal Exam: Normal Bowel Sounds, Soft, Non-Tender (Female) Exam: Deferred Extremities: Normal Inspection, No Pedal Edema, Normal Capillary Refill Peripheral Pulses: 2+: Dorsalis Pedis (L), Dorsalis Pedis (R) Neurological: No New Focal Deficit Psy/Mental Status: Alert, Normal Affect, Normal Mood - Problem List & Annotations (1) Hyponatremia SNOMED Code(s): 77887818 Code(s): E87.1 - HYPO-OSMOLALITY AND HYPONATREMIA Status: Resolved Priority: High Current Visit: Yes (2) Pancytopenia SNOMED Code(s): 740974656 Code(s): D61.818 - OTHER PANCYTOPENIA Status: Chronic Priority: High Current Visit: Yes (3) Anorexia SNOMED Code(s): 36596739 Code(s): R63.0 - ANOREXIA Status: Acute Priority: High Current Visit: Yes (4) Herpes zoster SNOMED Code(s): 6749284 Code(s): B02.9 - ZOSTER WITHOUT COMPLICATIONS Status: Resolved Priority: Medium Current Visit: Yes Qualifiers: Herpes zoster complications: without complications Qualified Code(s): B02.9 - Zoster without complications (5) Hypothyroidism SNOMED Code(s): 69551839 Code(s): E03.9 - HYPOTHYROIDISM, UNSPECIFIED Status: Chronic Priority: High Current Visit: Yes Qualifiers: Hypothyroidism type: unspecified Qualified Code(s): E03.9 - Hypothyroidism , unspecified (6) Serum lipase elevation SNOMED Code(s): 142814840 Code(s): R74.8 - ABNORMAL LEVELS OF OTHER SERUM ENZYMES Status: Resolved Current Visit: Yes - Problem List Review Problem List Initiated/Reviewed/Updated: Yes - My Orders Last 24 Hours: My Active Orders 04/29/17 09:00 LORazepam [Ativan] 0.25 mg PO BID 04/29/17 21:00 Mirtazapine [Remeron] 7.5 mg PO BEDTIME - Plan Plan:: I/P: Acute: Subclinical Hypothyroidism -Reports generalized weakness, abdominal pain, and symptoms that are "difficult to describe" but wax/wane -On home synthroid - suspect medical non-compliance -->Patient reports she has been taking med as prescribed-->Grand-daughter reports patient will frequently self dose medications -TSH 11.682, Free T4 ordered and WNL -Resume home synthroid; Recommend f/u with PCP- recheck TSH in 6-8 wks -Increased dose to 125 mcg po daily starting in AM Herpes Zoster--resolving -Patches on left knee and buttocks, Crusted over -Prescribed pain meds and Gabapentin however she has stopped taking them -Reports pain which is improving very slowly -During acute outbreak patient reports she had suicidal ideation of wanting to kill herself via taking her sleeping pills as "pain was too much". She is no longer suicidal. Pancytopenia -? acute on chronic, ? nutritional -Iron studies, B12, folic acid all WNL. Occult stool ordered. Peripheral smear ordered. -Has Hx/o Hodgkin's Lymphoma -Platelet 149, stable; will continue lovenox -Monitor platelets with lovenox Situational Depression -Spiritual Care consult -Follow up Dr. Mortensen -Recommendations to stop ambien, low dose remeron- 7.5mg QHS ordered, ativan 0.25mg BID prn; all meds ordered. Will cont to monitor. -Spiritual care -SW follow up Resolved: S/p Dehydration -Hct 33.1, Anion gap 16.6, Creatinine 1.3 -Reports minimal oral intake -Encourage oral hydration -IV fluids S/p Hypomagnesemia -Mag 1.5 -Replete and monitor with daily labs, K+ WNL today Query Depression/Suicidal Ideation--This was situation and one time episode -Hx/o depression/anxiety in past; Reportedly stopped medication because they "didn't do any good" -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: Poor nutritional status, [employer] to with mild dementia, hx/o hodgkin's lymphoma -Reports to provider "I have thought about killing myself multiple times due to shingles pain."; Reports she would take all of her "sleeping pills." to do it -Denies any current suicidal/homicidal ideation -Grand-daughter reports she is genuinely concerned as "patient has talked about this many times to me."; "She has lots of medications around her house." -Dr. Mortensen consult-recommended no medication but spiritual consult Elevated lipase--Resolved, 200's now -lipase 458, LFT's WNL, WBC normal -Denies abdominal pain, Very poor oral intake per patient report, Suspect due to poor nutritional status -Clear liquid diet - advance as tolerated---soft diet this am S/p Hyponatremia -Sodium 123 at prior clinic visit and in ED - appears to be chronic (She is on HCTZ)--> now 134 -Pt. reports poor oral intake - "Nothing tastes good."---starting to improve with hydrationn -She reports she becomes nauseous when attempting to eat--states this is resolved this mroning -Query anorexia vs. difficulty eating due to medical conditions -Weight appears stable over recent visits -Hx/o Hodgkin's lymphoma -Continue IV fluids -Consider thermotabs Chronic: HLD HTN - stable, home meds and PRN BP meds Diverticulosis GERD - stable Hiatal Hernia PUD Urinary incontinence OA CKD Stage 3 Anxiety - as above Depression - as above Hypothyroidism - as above Hx/o Hodgkin's Lymphoma Plan: She remains clinically stable Continue current treatment to include PT/OT Routine AM labs DVT prophylaxis: Lovenox/TUTU Hose GI prophylaxis: Pepcid - hold home PPI due to elevated lipase Additional orders as above CM/SW for discharge planning - grand-daughter has concerns over patient caring for self/, Home care services/HHC services Unclear about d/c care plans but if she does go back home, she will be set up with HHC services; will wait further input from CM/SW. DC home with HHC vs SNF pending SW. Code status: Full code; Her PCP is Dr. Dallas at [facility] here in [place] LOS anticipate > 96 hrs for possible NH/SENIOR CARE placement. Spoke to her daughter today, she will inquire at [address] for possible placement. Informed her, SW would probably be able to help her more tomorrow regarding financially reasonable placement.
[2017-04-29] MEDS ORDERED: LORazepam 0.5 MG Tab PO PRN (09:00)
[2017-04-29] MEDS ORDERED: Magnesium Oxide 400 MG Tab PO ONE (10:00)
[2017-04-29 12:50] VITALS: BP 110/60
--- NOTE | 2017-04-29 13:21 | PCM.DCSUM1 ---
Discharge Summary - Hospital Course Free Text/Narrative:: Viktoriya Julian is an 87 yo female who presents to our ED today with generalized weakness, dizziness, nausea, no appetite, poor oral intake. Reports she is not felt well in 1-2 weeks but it has worsened the last 3-4 days. She denies chest pain or difficulty breathing. No abdominal pain, vomiting, diarrhea, vertigo, focal weakness. She reported to have labs performed at her PCP visit 1 week ago and her sodium was noted to be 123 at that time. Denies any recent cough, sore throat, fever, chills. On arrival ED temperature 97.4. Pulse was 81. Respirations 18. BP 144/98. Pulse ox 99%. Labs were obtained WBC was normal at 4.69. Hemoglobin 12.0. Hematocrit 33.1. She was normocytic. Platelets were 192,000. Neutrophils were 68.7%. Sodium was low at 123. Potassium low end of normal at 3.6. Chloride low at 89. Carbon dioxide normal at 21. Anion gap was high at 16.6. BUN is high at 22. Creatinine is high at 1.3. EGFR is 39. Glucose 111. Total bilirubin high at 1.5. AST is 21 ALT is 24 alkaline phosphatase is low at 33. Albumin is good at 3.8. Lipase was high at 458. TSH was very high at 11.682. head CT is obtained and shows mild senescent change. No acute intracranial abnormality is interpreted by Dr. Mcgraw, radiologist. Abdominal x -ray shows incidental findings, nothing acute. She carries a history of: HLD, HTN, diverticulosis, GERD, hiatal hernia, PUD, urinary incontinence, arthritis, vertigo, anxiety, depression, hypothyroidism, Hodgkin's renal lymphoma. She was never a smoker. She subsequently admitted to the medical floor observation status with telemetry. She is a full code. Her PCP is Dr. Dallas at [facility] here in [place]. - Discharge Data Discharge Date: 04/29/17 (admit date 04/26/17) Discharge Disposition: Home, W Home Health Agency 06 Condition: Fair - Discharge Diagnosis/Problem(s) (1) Hyponatremia SNOMED Code(s): 53879627 ICD Code: E87.1 - HYPO-OSMOLALITY AND HYPONATREMIA Status: Resolved Priority: High Current Visit: Yes (2) Pancytopenia SNOMED Code(s): 534093911 ICD Code: D61.818 - OTHER PANCYTOPENIA Status: Chronic Priority: High Current Visit: Yes (3) Anorexia SNOMED Code(s): 56920921 ICD Code: R63.0 - ANOREXIA Status: Chronic Priority: High Current Visit : Yes (4) Herpes zoster SNOMED Code(s): 2309835 ICD Code: B02.9 - ZOSTER WITHOUT COMPLICATIONS Status: Resolved Priority : Medium Current Visit: Yes Qualifiers: Herpes zoster complications: without complications Qualified Code(s): B02.9 - Zoster without complications (5) Hypothyroidism SNOMED Code(s): 72065641 ICD Code: E03.9 - HYPOTHYROIDISM, UNSPECIFIED Status: Chronic Priority: High Current Visit: Yes Qualifiers: Hypothyroidism type: unspecified Qualified Code(s): E03.9 - Hypothyroidism , unspecified (6) Serum lipase elevation SNOMED Code(s): 358103888 ICD Code: R74.8 - ABNORMAL LEVELS OF OTHER SERUM ENZYMES Status: Resolved Current Visit: Yes - Patient Summary/Data Operative Procedure(s) Performed: None Complications: None Consults: Consultations 04/27/17 07:50 Consult to Spiritual Care [CONS] Routine Labs Pending at D/C: None Recommended Follow-up Testing/Procedures: Patient DC instructions: Home Health Care with physical therapy Push fluids Follow up with PCP within one week of discharge. Planned Operative Procedure(s) after DC: None Hospital Course: I/P: Acute: Subclinical Hypothyroidism -Reports generalized weakness, abdominal pain, and symptoms that are "difficult to describe" but wax/wane -On home synthroid - suspect medical non-compliance -->Patient reports she has been taking med as prescribed-->Grand-daughter reports patient will frequently self dose medications -TSH 11.682, Free T4 ordered and WNL -Resume home synthroid; Recommend f/u with PCP- recheck TSH in 6-8 wks -Increased dose to 125 mcg po daily starting in AM Herpes Zoster--resolving -Patches on left knee and buttocks, Crusted over -Prescribed pain meds and Gabapentin however she has stopped taking them -Reports pain which is improving very slowly -During acute outbreak patient reports she had suicidal ideation of wanting to kill herself via taking her sleeping pills as "pain was too much". She is no longer suicidal. Pancytopenia -? acute on chronic, ? nutritional -Iron studies, B12, folic acid all WNL. Occult stool ordered. Peripheral smear ordered. -Has Hx/o Hodgkin's Lymphoma -Platelet 149, stable; will continue lovenox; Monitor platelets with lovenox Situational Depression -Spiritual Care consult -Follow up Dr. Mortensen -Recommendations to stop ambien, low dose remeron- 7.5mg QHS ordered, ativan 0.25mg BID prn; all meds ordered. Will cont to monitor. -Spiritual care -SW follow up -Follow up with PCP, Dr. 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 Mortensen consult-recommended no medication but spiritual consult Elevated lipase--Resolved, 200's now -lipase 458, LFT's WNL, WBC normal -Denies abdominal pain, Very poor oral intake per patient report, Suspect due to poor nutritional status -Clear liquid diet - advance as tolerated---soft diet this am S/p Hyponatremia -Sodium 123 at prior clinic visit and in ED - appears to be chronic (She is on HCTZ)--> now 134 -Pt. reports poor oral intake - "Nothing tastes good."---starting to improve with hydrationn -She reports she becomes nauseous when attempting to eat--states this is resolved this mroning -Query anorexia vs. difficulty eating due to medical conditions -Weight appears stable over recent visits -Hx/o Hodgkin's lymphoma -Continue IV fluids -Consider thermotabs Chronic: HLD HTN - stable, home meds and PRN BP meds Diverticulosis GERD - stable Hiatal Hernia PUD Urinary incontinence OA CKD Stage 3 Anxiety - as above Depression - as above Hypothyroidism - as above Hx/o Hodgkin's Lymphoma Plan: She remains clinically stable Continue current treatment to include PT/OT Routine AM labs DVT prophylaxis: Lovenox/TUTU Hose GI prophylaxis: Pepcid - hold home PPI due to elevated lipase Additional orders as above CM/SW for discharge planning - grand-daughter has concerns over patient caring for self/, Home care services/HH services. Plans for DC home today with [facility] nursing and PT. Face to face on the day of discharge does reveal patient will benefit from HHC services, is homebound due to above diagnosis of electrolyte abnormalities, situational depression for nursing assessments, VS and medication education, PT for unsteady gait/balance and weakness. Patient will f/ up with PCP, Dr. Dallas within one week of DC who will then assume [facility] services. Code status: Full code; Her PCP is Dr. Dallas at [facility] in [facility] anticipate > 96 hrs for possible NH/[facility] placement. Spoke to her daughter; she will inquire at [address] for possible placement. Informed her, SW would probably be able to help her more today regarding financially reasonable placement. Daughter is looking into [facility] [place] in which patient and will be placed after discharge. - Patient Instructions Diet: Heart Healthy Diet, Drink 8-10+ Glasses/Day Activity: As Tolerated Driving: Do Not Drive Showering/Bathing: May Shower Notify Provider of: Fever, Increased Pain, Nausea and/or Vomiting - Discharge Plan Prescriptions/Med Rec: LORazepam [Ativan] 0.25 mg PO BID PRN #30 tablet PRN Reason: ANXIETY Mirtazapine [Remeron] 7.5 mg PO BEDTIME #30 tablet Home Medications: Home Meds Omeprazole 20 mg PO DAILY 09/11/13 [History] Simvastatin [Zocor] 10 mg PO QPM 09/11/13 [History] Levothyroxine [Synthroid] 100 mg PO ACBRK 06/22/14 [History] Losartan/Hydrochlorothiazide [Losartan-HCTZ 100-25 MG] 25 - 100 mg PO DAILY [History] Acetaminophen [Tylenol Arthritis] 650 mg PO BID PRN 03/28/17 [History] Omeprazole 20 mg PO QPM PRN 03/28/17 [History] Gabapentin [Neurontin] 100 mg PO TID 04/26/17 [History] traMADol [Ultram] 1 tab PO Q6HR PRN 04/26/17 [History] LORazepam [Ativan] 0.25 mg PO BID PRN #30 tablet 04/29/17 [Rx] Mirtazapine [Remeron] 7.5 mg PO BEDTIME #30 tablet 04/29/17 [Rx] Patient Handouts: Hyponatremia, [id number], Failure to Thrive, Adult, Easy-to -Read Forms: ED Department Discharge Referrals: Rambo Dallas MD [Primary Care Provider] - - Discharge Summary/Plan Comment DC Time >30 min.: Yes (45 min) - General Info Date of Service: 04/29/17 Admission Dx/Problem (Free Text: Admission Diagnosis/Problem Admission Diagnosis/Problem Hyponatremia Patient initially seen ambulating halls with PT this morning, doing well. No complaints/concerns, denies pain. Is SBA with FWW with PT. No nursing concerns. Dr. Mortensen, Psychiatry note reviewed with medication recommendations for chronic depression/anxiety. Will address changes/recommendations. Functional Status: Reports: Pain Controlled, Tolerating Diet, Ambulating, Urinating. Denies: New Symptoms - Review of Systems General: Reports: No Symptoms HEENT: Reports: No Symptoms Pulmonary: Reports: No Symptoms Cardiovascular: Reports: No Symptoms Gastrointestinal: Reports: No Symptoms Genitourinary: Reports: No Symptoms Musculoskeletal: Reports: No Symptoms Skin: Reports: No Symptoms Neurological: Reports: No Symptoms Psychiatric: Reports: No Symptoms - Patient Data Vitals - Most Recent: Last Vital Signs Temp 97.2 F 04/29/17 11:46 Pulse 77 04/29/17 11:46 Resp 20 04/29/17 11:46 BP 110/60 04/29/17 12:50 Pulse Ox 100 04/29/17 11:46 Weight - Most Recent: 134 lb 1.6 oz I&O - Last 24 hours: Intake & Output 01/14/18 01/15/18 01/15/18 22:59 06:59 14:59 Intake Total 6554 7495 016 Output Total 0496 1050 Balance -53 551 270 Lab Results - Last 24 hrs: Laboratory Results - last 24 hr 04/29/17 04/29/17 Range/Units 06:08 06:08 WBC 3.18 L (3.98-10.04) K/mm3 RBC 3.38 L (3.98-5.22) M/mm3 Hgb 10.6 L (11.2-15.7) gm/L Hct 31.2 L (34.1-44.9) % MCV 92.3 (79.4-94.8) fl MCH 31.4 (25.6-32.2) pg MCHC 34.0 (32.2-35.5) g/dl RDW Std Deviation 49.2 H (36.4-46.3) fL Plt Count 153 L (182-369) K/mm3 MPV 8.0 L (9.4-12.3) fl Neut % (Auto) 70.9 (34.0-71.1) % Lymph % (Auto) 16.0 L (19.3-51.7) % [place] % (Auto) 11.6 (4.7-12.5) % Eos % (Auto) 0.9 (0.7-5.8) Baso % (Auto) 0.3 (0.1-1.2) % Neut # (Auto) 2.25 (1.56-6.13) K/mm3 Lymph # (Auto) 0.51 L (1.18-3.74) K/mm3 [place] # (Auto) 0.37 H (0.24-0.36) K/mm3 Eos # (Auto) 0.03 L (0.04-0.36) K/mm3 Baso # (Auto) 0.01 (0.01-0.08) K/mm3 Sodium 137 (136-145) mEq/L Potassium 4.1 (3.5-5.1) mEq/L Chloride 105 (98-107) mEq/L Carbon Dioxide 24 (21-32) mEq/L Anion Gap 12.1 (5-15) BUN 13 (7-18) mg/dL Creatinine 1.0 (0.55-1.02) mg/dL Est Cr Clr Drug Dosing 37.34 mL/min Estimated GFR (MDRD) 52 (>60) mL/min BUN/Creatinine Ratio 13.0 L (14-18) Glucose 109 (83-115) mg/dL Calcium 8.0 L (8.5-10.1) mg/dL Magnesium 1.8 (1.8-2.4) mg/dl C-Reactive Protein < 0.2 (<1.0) mg/dL Med Orders - Current: Current Medications Acetaminophen (Tylenol) 650 mg PO Q4H PRN PRN Reason: Pain (Mild 1-3)/fever Last Admin: 04/25/17 22:56 Dose: 650 mg Acetaminophen (Tylenol) 650 mg PO BID PRN PRN Reason: Pain (severe 7-10) Albuterol/Ipratropium (Duoneb 3.0-0.5 Mg/3 Ml) 3 ml NEB Q4H PRN PRN Reason: Shortness Of Breath/wheezing Bisacodyl (Dulcolax) 5 mg PO DAILY PRN PRN Reason: Constipation Docusate Sodium (Colace) 100 mg PO BID PRN PRN Reason: Constipation Enoxaparin Sodium (Lovenox) 30 mg SUBCUT DAILY [facility] Last Admin: 04/29/17 08:17 Dose: 30 mg Famotidine (Pepcid) 20 mg PO DAILY [facility] Last Admin: 04/29/17 08:18 Dose: 20 mg Gabapentin (Neurontin) 100 mg PO TID [facility] Last Admin: 04/29/17 08:18 Dose: 100 mg Hydralazine HCl (Apresoline) 10 mg IVPUSH Q6H PRN PRN Reason: Hypertension Levothyroxine Sodium (Levothyroxine) 125 mcg PO ACBRK [facility] Last Admin: 04/29/17 06:30 Dose: 125 mcg Lorazepam (Ativan) 0.25 mg PO BID PRN PRN Reason: ANXIETY Losartan Potassium (Cozaar) 100 mg PO DAILY [facility] Last Admin: 04/29/17 08:18 Dose: 100 mg Magnesium Sulfate (Pharmacy To Dose - Magnesium Replacement) 0 dose .XX ASDIRECTED PRN PRN Reason: RX TO WATCH MAG LEVELS Metoprolol Tartrate (Lopressor) 5 mg IVPUSH Q4H PRN PRN Reason: Tachycardia Mirtazapine (Remeron) 7.5 mg PO BEDTIME [facility] Morphine Sulfate (Morphine) 0.5 mg IVPUSH Q2H PRN PRN Reason: Severe pain (7-10) Mupirocin (Bactroban Oint) 0 gm TOP BID [facility] Stop: 05/01/17 15:46 Last Admin: 04/29/17 08:19 Dose: 1 gram Ondansetron HCl (Zofran Odt) 4 mg PO Q6H PRN PRN Reason: nausea, able to take PO Ondansetron HCl (Zofran) 4 mg IV Q6H PRN PRN Reason: Nausea/Vomiting Polyethylene Glycol (Miralax) 17 gm PO DAILY PRN PRN Reason: Constipation Potassium Chloride (Pharmacy To Dose - Potassium Replacement) 0 dose .XX ASDIRECTED PRN PRN Reason: RX TO WATCH K LEVELS Senna/Docusate Sodium (Senna Plus) 1 tab PO BID PRN PRN Reason: Constipation Simvastatin (Zocor) 10 mg PO QPM [facility] Last Admin: 04/28/17 18:18 Dose: 10 mg Tramadol HCl (Ultram) 50 mg PO Q6H PRN PRN Reason: Pain Discontinued Medications Hydrocodone Bitart/Acetaminophen ([place] 325-5 Mg) 1 tab PO Q4H PRN PRN Reason: Pain (moderate 4-6) Famotidine (Pepcid) 20 mg PO BID [facility] Last Admin: 04/26/17 10:00 Dose: 20 mg Sodium Chloride (Normal Saline) 1,000 mls @ 150 mls/hr IV ASDIRECTED [facility] Last Admin: 04/26/17 04:30 Dose: 150 mls/hr Magnesium Sulfate 2 gm/ Premix 50 mls @ 25 mls/hr IV ONETIME ONE Stop: 04/26/17 11:29 Last Admin: 04/26/17 09:56 Dose: 25 mls/hr Sodium Chloride (Normal Saline) 1,000 mls @ 100 mls/hr IV ASDIRECTED [facility] Last Admin: 04/29/17 08:20 Dose: 100 mls/hr Levothyroxine Sodium (Synthroid) 100 mcg PO ACBRK [facility] Last Admin: 04/27/17 05:32 Dose: 100 mcg Lorazepam (Ativan) 0.5 mg PO QID PRN PRN Reason: Anxiety Last Admin: 04/26/17 01:36 Dose: 0.5 mg Magnesium Oxide (Magnesium Oxide) 400 mg PO TID [facility] Stop: 04/28/17 21:01 Last Admin: 04/28/17 21:17 Dose: 400 mg Magnesium Oxide (Magnesium Oxide) 400 mg PO ONETIME ONE Stop: 04/29/17 10:01 Last Admin: 04/29/17 10:00 Dose: 400 mg Morphine Sulfate (Morphine) 2 mg IVPUSH Q2H PRN PRN Reason: Pain (severe 7-10) Stop: 04/26/17 18:50 Losartan/Hydrochlorothiazide 100-25 Mg Tab Own Med 0 mg PO DAILY [facility] Last Admin: 04/26/17 09:57 Dose: 100 mg Pantoprazole Sodium (Protonix) 40 mg PO ACBREAKFAST [facility] Last Admin: 04/26/17 15:43 Dose: Not Given Potassium Chloride (Klor-Con M20) 20 meq PO Q4H [facility] Stop: 04/26/17 14:01 Last Admin: 04/26/17 13:52 Dose: 20 meq Temazepam (Restoril) 7.5 mg PO BEDTIME PRN PRN Reason: Sleep Zolpidem Tartrate (Ambien) 5 mg PO BEDTIME PRN PRN Reason: Insomnia Last Admin: 04/28/17 21:45 Dose: 5 mg - Exam Quality Assessment: Reports: DVT Prophylaxis General: Reports: Alert, Oriented, Cooperative, No Acute Distress HEENT: Reports: Pupils Equal, EOMI, Mucous Membr. Moist/[place] Neck: Reports: Supple Lungs: Reports: Clear to Auscultation, Normal Respiratory Effort Cardiovascular: Reports: Regular Rate, Regular Rhythm GI/Abdominal Exam: Normal Bowel Sounds, Soft, Non-Tender (Female) Exam: Deferred Rectal (Female) Exam: Deferred Extremities: Normal Inspection, No Pedal Edema, Normal Capillary Refill Neurological: Reports: No New Focal Deficit Psy/Mental Status: Reports: Alert, Normal Affect, Normal Mood *Q Meaningful Use (DIS) - VTE *Q VTE Criteria *Q: - Stroke *Q Stroke Criteria *Q: - AMI *Q AMI Criteria *Q:
[2017-04-29] MEDS ORDERED: Mirtazapine 15 MG Tab PO SCH (21:00)
== END 2017-04-29 15:30 | disposition home health service (06) | DRG 641 ==
LOC: JD.ED 12:40 → JD.MS 17:26 → OBSVTOIN 04-26 12:27 → JD.MS 04-26 12:40
PROVIDERS: ADMIT Internal Medicine; ATTEND Internal Medicine
DX: E22.2 Syndrome of inappropriate secretion of antidiuretic hormone (principal); E87.1 Hypo-osmolality and hyponatremia; D61.818 Other pancytopenia; I10 Essential (primary) hypertension; E78.00 Pure hypercholesterolemia, unspecified; E03.9 Hypothyroidism, unspecified; E86.0 Dehydration; Z85.71 Personal history of Hodgkin lymphoma; R74.8 Abnormal levels of other serum enzymes; B02.9 Zoster without complications; E78.5 Hyperlipidemia, unspecified; K21.9 Gastro-esophageal reflux disease without esophagitis; K44.9 Diaphragmatic hernia without obstruction or gangrene; K27.9 Peptic ulcer, site unspecified, unspecified as acute or chronic, without hemorrhage or perforation; R32 Unspecified urinary incontinence; M19.90 Unspecified osteoarthritis, unspecified site; F32.9 Major depressive disorder, single episode, unspecified; F41.9 Anxiety disorder, unspecified; R63.0 Anorexia; I12.9 Hypertensive chronic kidney disease with stage 1 through stage 4 chronic kidney disease, or unspecified chronic kidney disease; N18.3 Chronic kidney disease, stage 3 (moderate); E83.42 Hypomagnesemia; R53.1 Weakness; Z88.8 Allergy status to other drugs, medicaments and biological substances; Z79.899 Other long term (current) drug therapy
CPT/HCPCS: 36415 ×2; 70450; 74019; 80048; 80053; 82607; 82746; 83540; 83690 ×2; 83735; 84439; 84443; 84466; 85025 ×2; 86140; 87641; 87804 ×2; 93005; 96360; 96361; 97165; 97530; 99285; A9270 ×9; J1650; J7040 ×4; 96365; 96366; 96372; 97110-GP; 97116-GP; 97162-GP; 99284; G0378; J3475

== ENCOUNTER 2017-10-01 18:39 | Emergency (ER) | payer MEDICARE, OTHER ==
[2017-10-01 18:54] VITALS: BP 160/66
--- NOTE | 2017-10-01 19:53 | EDM.PDOC ---
ED HPI GENERAL MEDICAL PROBLEM - General Chief Complaint: Cardiovascular Problem Stated Complaint: HIGH PULSE Time Seen by Provider: 10/01/17 18:55 Source of Information: Reports: Patient, Family History Limitations: Reports: No Limitations - History of Present Illness INITIAL COMMENTS - FREE TEXT/NARRATIVE: The patient was sent from the walk in clinic at [place]. She went there because she has been having some episodes where she feels a warm feeling in her chest. She also feels like she has to cough and then coughs and it goes away. She also checked her pulse and at one time it was high at 104. She has no chest pain, shortness of breath, fever, chills, abdominal pain, nausea or vomiting. She has no heart problems. Onset: Gradual Duration: Day(s): Location: Reports: Chest Quality: Reports: Other (warm feeling) Severity: Mild Improves with: Reports: None Worsens with: Reports: None Associated Symptoms: Reports: No Other Symptoms - Related Data Allergies Allergy/AdvReac Type Severity Reaction Status Date / Time ciprofloxacin Allergy Edema Verified 04/25/17 13:02 fentanyl Allergy Shortness Verified 04/25/17 13:02 of Breath Home Meds: Home Meds Omeprazole 20 mg PO DAILY 09/11/13 [History] Levothyroxine [Synthroid] 100 mg PO ACBRK 06/22/14 [History] Losartan/Hydrochlorothiazide [Losartan-HCTZ 100-25 MG] 25 - 100 mg PO DAILY [History] Meclizine [Antivert] 25 mg PO Q6H PRN 10/01/17 [History] Pravastatin Sodium [Pravastatin (Pravachol)] 10 mg PO DAILY 10/01/17 [History] Zolpidem Tartrate [Ambien] 1 tab PO BEDTIME PRN 10/01/17 [History] Past Medical History HEENT History: Reports: Other (See Below) Other HEENT History: eye infections Cardiovascular History: Reports: High Cholesterol, Hypertension Other Cardiovascular History: phlebitis Angiogram . 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 Endocrine/Metabolic History: Reports: Hypothyroidism Hematologic History: Reports: None Immunologic History: Reports: None Oncologic (Cancer) History: Reports: Hodgkin's Lymphoma, Renal Other Oncologic History: last chemo 2 years ago Dermatologic History: Reports: None - Infectious Disease History Infectious Disease History: Reports: Chicken Pox - Past Surgical History HEENT Surgical History: Reports: Cataract Surgery Cardiovascular Surgical History: Reports: Other (See Below) Respiratory Surgical History: Reports: None Dermatological Surgical History: Reports: None Social & Family History - Family History Family Medical History: Noncontributory - Tobacco Use Smoking Status *Q: Never Smoker - Caffeine Use Caffeine Use: Reports: Coffee - Recreational Drug Use Recreational Drug Use: No - Living Situation & Occupation Living situation: Reports: , with Spouse Occupation: Retired ED ROS GENERAL - Review of Systems Review Of Systems: See Below Constitutional: Reports: No Symptoms HEENT: Reports: No Symptoms Respiratory: Reports: No Symptoms Cardiovascular: Reports: No Symptoms, Other (Warmth in the chest) Endocrine: Reports: No Symptoms GI/Abdominal: Reports: No Symptoms : Reports: No Symptoms Musculoskeletal: Reports: No Symptoms Skin: Reports: No Symptoms Neurological: Reports: No Symptoms ED EXAM, GENERAL - Physical Exam Exam: See Below Exam Limited By: No Limitations General Appearance: Alert, No Apparent Distress Ears: Normal External Exam Nose: Normal Inspection Head: Atraumatic, Normocephalic Neck: Normal Inspection Respiratory/Chest: No Respiratory Distress, Lungs Clear, Normal Breath Sounds Cardiovascular: Regular Rate, Rhythm, No Edema, No Murmur GI/Abdominal: Normal Bowel Sounds, Soft, Non-Tender, No Organomegaly Extremities: Normal Inspection Neurological: Alert, Oriented, No Motor/Sensory Deficits EKG INTERPRETATION EKG Date: 10/01/17 Time: 19:21 Rhythm: NSR Rate (Beats/Min): 71 [place]: Normal P-Wave: Present QRS: Normal ST-T: Normal QT: Normal AL/PQ Interval: 1st degree HB Course - Vital Signs Last Recorded V/S: Last Vital Signs Temp 98.5 F 10/01/17 18:50 Pulse 74 10/01/17 18:50 Resp 18 10/01/17 18:50 BP 160/66 H 10/01/17 18:50 Pulse Ox 100 10/01/17 18:50 - Orders/Labs/Meds Orders: Active Orders 24 hr Category Date Time Status Cardiac Monitoring [RC] . DIRECTED Care 10/01/17 19:12 Active EKG Documentation Completion [RC] STAT Care 10/01/17 19:12 Active Chest 1V Frontal [CR] Stat Exams 10/01/17 19:13 Taken Labs: Laboratory Tests 10/01/17 10/01/17 Range/Units 19:30 19:30 WBC 4.71 (3.98-10.04) K/mm3 RBC 3.74 L (3.98-5.22) M/mm3 Hgb 11.4 (11.2-15.7) gm/L Hct 33.7 L (34.1-44.9) % MCV 90.1 (79.4-94.8) fl MCH 30.5 (25.6-32.2) pg MCHC 33.8 (32.2-35.5) g/dl RDW Std Deviation 43.3 (36.4-46.3) fL Plt Count 172 L (182-369) K/mm3 MPV 8.7 L (9.4-12.3) fl Neut % (Auto) 73.5 H (34.0-71.1) % Lymph % (Auto) 13.8 L (19.3-51.7) % [place] % (Auto) 11.5 (4.7-12.5) % Eos % (Auto) 0.8 (0.7-5.8) Baso % (Auto) 0.2 (0.1-1.2) % Neut # (Auto) 3.46 (1.56-6.13) K/mm3 Lymph # (Auto) 0.65 L (1.18-3.74) K/mm3 [place] # (Auto) 0.54 H (0.24-0.36) K/mm3 Eos # (Auto) 0.04 (0.04-0.36) K/mm3 Baso # (Auto) 0.01 (0.01-0.08) K/mm3 Sodium 135 L (136-145) mEq/L Potassium 3.9 (3.5-5.1) mEq/L Chloride 99 (98-107) mEq/L Carbon Dioxide 30 (21-32) mEq/L Anion Gap 9.9 (5-15) BUN 29 H (7-18) mg/dL Creatinine 1.5 H (0.55-1.02) mg/dL Est Cr Clr Drug Dosing 25.21 mL/min Estimated GFR (MDRD) 33 (>60) mL/min BUN/Creatinine Ratio 19.3 H (14-18) Glucose 117 H (83-115) mg/dL Calcium 9.0 (8.5-10.1) mg/dL Total Bilirubin 1.3 H (0.2-1.0) mg/dL AST 19 (15-37) U/L ALT 13 L (14-59) U/L Alkaline Phosphatase 34 L (46-116) U/L Troponin I < 0.017 (0.00-0.056) ng/mL Total Protein 6.3 L (6.4-8.2) g/dl Albumin 3.6 (3.4-5.0) g/dl Globulin 2.7 gm/dL Albumin/Globulin Ratio 1.3 (1-2) - Re-Assessments/Exams Free Text/Narrative Re-Assessment/Exam: 10/01/17 19:58 I ordered an EKG, CXR and labs. Her EKG shows a NSR with a 1st degree HB. Her CXR looks good. 10/01/17 20:16 Her CBC looks good. Her Na was a little low at 135. Her creatinine is elevated at 1.5. Her glucose was 117. Her troponin was negative. She is a little dry. I will have her drink more water. Departure - Departure Time of Disposition: 20:20 Disposition: Home, Self-Care 01 Condition: Good Clinical Impression: Dehydration, mild Referrals: Rambo Dlalas MD [Primary Care Provider] - 1 Week Forms: ED Department Discharge Additional Instructions: Take your medications as prescribed. Drink more water. Please return if you are worse. - My Orders Last 24 Hours: My Active Orders 10/01/17 19:12 Cardiac Monitoring [RC] . DIRECTED EKG Documentation Completion [RC] STAT 10/01/17 19:13 Chest 1V Frontal [CR] Stat - Assessment/Plan Last 24 Hours: My Active Orders 10/01/17 19:12 Cardiac Monitoring [RC] . DIRECTED EKG Documentation Completion [RC] STAT 10/01/17 19:13 Chest 1V Frontal [CR] Stat
--- NOTE | 2017-10-02 08:30 | CR ---
Chest: Portable view of the chest was obtained. Comparison: Prior chest x-ray of 11/28/15. Heart size and mediastinum are within normal limits. Lungs are hyperinflated compatible with emphysematous change. No acute parenchymal findings are seen within either lung. Surgical clips are seen within the upper left mediastinum. Surgical clips are seen within the upper right abdomen. Bony structures are osteopenic. Slight degenerative change and scoliosis are present within the spine. Impression: 1. Emphysematous change and other incidental findings. 2. Nothing acute is appreciated on portable chest x-ray. Diagnostic code #2
== END 2017-10-01 20:25 | disposition home or self-care (01) ==
LOC: JD.ED 18:39
DX: E86.0 Dehydration (principal); E78.00 Pure hypercholesterolemia, unspecified; I10 Essential (primary) hypertension; E03.9 Hypothyroidism, unspecified; K21.9 Gastro-esophageal reflux disease without esophagitis; F41.9 Anxiety disorder, unspecified; F32.9 Major depressive disorder, single episode, unspecified; Z88.1 Allergy status to other antibiotic agents; Z88.8 Allergy status to other drugs, medicaments and biological substances; Z79.899 Other long term (current) drug therapy
CPT/HCPCS: 36415; 71045; 71045-26; 80053; 84484; 85025; 93005; 93010; 99284-25; 99285-25

== ENCOUNTER 2017-10-29 06:03 | Emergency (ER) | payer MEDICARE, OTHER ==
[2017-10-29 06:15] VITALS: BP 145/71
[2017-10-29] MEDS ORDERED: Ondansetron 4 MG/2 ML SDV IVPUSH ONE (06:33)
[2017-10-29] MEDS ORDERED: Sodium Chloride 0.9% 500 ML IV ONE (06:33)
--- NOTE | 2017-10-29 06:42 | EDM.PDOC ---
<Ramon Clay - Last Filed: 10/29/17 06:51> ED HPI GENERAL MEDICAL PROBLEM - General Chief Complaint: Abdominal Pain Stated Complaint: CHEST PRESSURE/DIZZY/NAUSEATED Time Seen by Provider: 10/29/17 06:19 Source of Information: Reports: Patient, Family () History Limitations: Reports: No Limitations - History of Present Illness INITIAL COMMENTS - FREE TEXT/NARRATIVE: The patient states that she developed some urinary incontinence Saturday night, , then developed dysuria yesterday morning, 10/28/2017. She states that she drink as much water as she could. She states that she contacted the office of her PCP, Dr. Dallas, who ordered an outpatient urinalysis. The patient states that she provided a urine sample off yesterday afternoon, but did not hear back from them about whether or not she has a urinary tract infection. She states that she developed nausea, vomiting, and lightheadedness around 03:30 this morning, and has vomited numerous times since. She states she was unable to sleep, and now feels very poorly. No recent fever. No back pain. No recent constipation or diarrhea. No recent chest pain, dyspnea, or palpitations. She states that her symptoms are similar to when she has had a UTI in the past. The patient states that she has a history of Mnire's disease , but that her lightheadedness is not like the vertigo that she gets. The patient is scheduled for a stress test at 06:45 this morning, but does not believe that she can make it. She is asking if we will reschedule it for her. - Related Data Allergies Allergy/AdvReac Type Severity Reaction Status Date / Time ciprofloxacin Allergy Edema Verified 10/29/17 06:11 fentanyl Allergy Shortness Verified 10/29/17 06:11 of Breath Home Meds: Home Meds Omeprazole 20 mg PO DAILY 09/11/13 [History] Levothyroxine [Synthroid] 100 mg PO ACBRK 06/22/14 [History] Losartan/Hydrochlorothiazide [Losartan-HCTZ 100-25 MG] 25 - 100 mg PO DAILY [History] Meclizine [Antivert] 25 mg PO Q6H PRN 10/01/17 [History] Pravastatin Sodium [Pravastatin (Pravachol)] 10 mg PO DAILY 10/01/17 [History] Zolpidem Tartrate [Ambien] 1 tab PO BEDTIME PRN 10/01/17 [History] Ondansetron [Zofran ODT] 4 mg PO Q6H PRN #20 tab.dis 10/29/17 [Rx] Sulfamethoxazole/Trimethoprim [Bactrim Ds Tablet] 1 each PO BID #6 tablet [Rx] Past Medical History HEENT History: Reports: Impaired Vision Cardiovascular History: Reports: High Cholesterol, Hypertension Gastrointestinal History: Reports: Diverticulosis, GERD, Hiatal Hernia, PUD Genitourinary History: Reports: Renal Calculus, Urinary Incontinence, Other ( See Below) (Solitary left kidney following right nephrectomy) 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: Musculoskeletal History: Reports: Osteoarthritis Neurological History: Reports: Vertigo (Mnire disease) Psychiatric History: Reports: Anxiety, Depression 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, Renal - Infectious Disease History Infectious Disease History: Reports: Chicken Pox - Past Surgical History HEENT Surgical History: Reports: Cataract Surgery Cardiovascular Surgical History: Reports: Other (See Below) (Left Port-A-Cath) GI Surgical History: Reports: Appendectomy, Cholecystectomy, Colonoscopy Female Surgical History: Reports: Hysterectomy Social & Family History - Family History Family Medical History: Noncontributory - Tobacco Use Smoking Status *Q: Never Smoker - Caffeine Use Caffeine Use: Reports: Coffee - Living Situation & Occupation Living situation: Reports: , with Spouse Occupation: Retired ED ROS GENERAL - Review of Systems Review Of Systems: ROS reveals no pertinent complaints other than HPI. ED EXAM, GENERAL - Physical Exam Exam: See Below Exam Limited By: No Limitations General Appearance: Alert, WD/WN, No Apparent Distress Eye Exam: Bilateral Eye: Normal Inspection Ears: Normal External Exam, Hearing Grossly Normal Nose: Normal Inspection, No Blood Throat/Mouth: Normal Inspection, Normal Lips, Normal Voice, No Airway Compromise Head: Atraumatic, Normocephalic Neck: Normal Inspection, Full Range of Motion Respiratory/Chest: No Respiratory Distress, Lungs Clear, Normal Breath Sounds, No Accessory Muscle Use Cardiovascular: Normal Peripheral Pulses, Regular Rate, Rhythm, No Edema, No Gallop, No JVD, No Murmur, No Rub Peripheral Pulses: 4+: Radial (L), Radial (R) GI/Abdominal: Normal Bowel Sounds, Soft, No Organomegaly, No Distention, No Abnormal Bruit, No Mass, Tender (Mild, epigastric only. Nontender elsewhere, including suprapubically.) (Female) Exam: Deferred Rectal (Female) Exam: Deferred Back Exam: Normal Inspection, Full Range of Motion. No: CVA Tenderness (L), CVA Tenderness (R) Extremities: Normal Inspection, Normal Range of Motion, No Pedal Edema, Normal Capillary Refill Neurological: Alert, Oriented, Normal Cognition, No Motor/Sensory Deficits Psychiatric: Normal Affect Skin Exam: Warm, Dry, Intact, Normal Color, No Rash Course - Vital Signs Last Recorded V/S: Last Vital Signs Temp 98.5 F 10/29/17 06:11 Pulse 75 10/29/17 06:11 Resp 18 10/29/17 06:11 BP 145/71 H 10/29/17 06:11 Pulse Ox 100 10/29/17 06:11 - Orders/Labs/Meds Orders: Active Orders 24 hr Category Date Time Status UA W/MICROSCOPIC [URIN] Stat Lab 10/29/17 06:35 Ordered Labs: Laboratory Tests 10/29/17 Range/Units 06:35 Urine Color Yellow (Yellow) Urine Appearance Slt cloudy H (Clear) Urine pH 7.5 (5.0-8.0) Ur Specific [place] 1.020 (1.005-1.030) Urine Protein 1+ H (Negative) Urine Glucose (UA) Negative (Negative) Urine Ketones Negative (Negative) Urine Occult Blood 2+ H (Negative) Urine Nitrite Negative (Negative) Urine Bilirubin Negative (Negative) Urine Urobilinogen 0.2 (0.2-1.0) Ur Leukocyte Esterase 2+ H (Negative) Urine RBC 5-10 H (0-5) /hpf Urine WBC 10-20 H (0-5) /hpf Ur Epithelial Cells 0-5 (0-5) /hpf Urine Bacteria Few (FEW) /hpf Urine Mucus Not seen (FEW) /hpf Meds: Medications Discontinued Medications Generic Name Dose Route Start Last Admin Trade Name Freq PRN Reason Stop Dose Admin Sodium Chloride 500 mls @ 1,000 mls/hr 10/29/17 06:33 10/29/17 06:52 Normal Saline IV 10/29/17 07:02 1,000 mls/hr .BOLUS ONE Administration Ondansetron HCl 4 mg 10/29/17 06:33 10/29/17 06:52 Zofran IVPUSH 10/29/17 06:34 4 mg ONETIME ONE Administration - Re-Assessments/Exams Free Text/Narrative Re-Assessment/Exam: 10/29/17 06:34 The patient believes, and it is quite likely, that she has a urinary tract infection, therefore I have ordered a urinalysis by quick catheter. I've asked the nurse to place an IV, draw a [place], and while we are waiting on the urinalysis results, we will give some IV fluid and IV Zofran. If the patient does indeed have a urinary tract infection, then blood work is not necessary, but if the urinalysis returned as normal, then we will send the blood for further evaluation. 10/29/17 07:[address] Sharp, and care of the patient turned over to him at this time, for change of shift. Departure - Departure Disposition: Home, Self-Care 01 Clinical Impression: UTI (urinary tract infection) Qualifiers: Urinary tract infection type: acute cystitis Hematuria presence: without hematuria Qualified Code(s): N30.00 - Acute cystitis without hematuria - Discharge Information Prescriptions: Ondansetron [Zofran ODT] 4 mg PO Q6H PRN #20 tab.dis PRN Reason: Nausea\vomiting Sulfamethoxazole/Trimethoprim [Bactrim Ds Tablet] 1 each PO BID #6 tablet Referrals: Rambo Dallas MD [Primary Care Provider] - Forms: ED Department Discharge Additional Instructions: Drink plenty of fluids. Take the zofran every 6 hours as needed for nausea and vomiting. Take the bactrim 2 times per day for 3 days. Please return if you are worse. <James Sharp - Last Filed: 10/29/17 08:32> ED EXAM, GENERAL - Physical Exam Exam: See Below Course - Re-Assessments/Exams Free Text/Narrative Re-Assessment/Exam: 10/29/17 08:[address] Clay. Her UA shows a UTI. I will get her on some bactrim and something for nausea. I also ordered a culture of her urine. Departure - Departure Time of Disposition: 08:30 Condition: Good - Discharge Information *PRESCRIPTION DRUG MONITORING PROGRAM REVIEWED*: Not Applicable *COPY OF PRESCRIPTION DRUG MONITORING REPORT IN PATIENT TONY: Not Applicable
== END 2017-10-29 08:45 | disposition home or self-care (01) ==
LOC: JD.ED 06:03
DX: N30.00 Acute cystitis without hematuria (principal); E78.00 Pure hypercholesterolemia, unspecified; I10 Essential (primary) hypertension; F17.210 Nicotine dependence, cigarettes, uncomplicated; Z88.1 Allergy status to other antibiotic agents; Z79.899 Other long term (current) drug therapy
CPT/HCPCS: 81001; 87086; 87088; 87186; 96361; 96374; 99285; J2405; J7040; 99284

== ENCOUNTER 2018-05-20 13:52 | Emergency (ER) | payer MEDICARE, OTHER ==
[2018-05-20 14:17] VITALS: BP 155/77
[2018-05-20] MEDS ORDERED: predniSONE 20 MG Tab PO ONE (14:59)
--- NOTE | 2018-05-20 15:12 | EDM.PDOC ---
ED HPI GENERAL MEDICAL PROBLEM - General Chief Complaint: Neck Problem Stated Complaint: NECK PAIN Time Seen by Provider: 05/20/18 14:24 Source of Information: Reports: Patient, Family History Limitations: Reports: No Limitations - History of Present Illness INITIAL COMMENTS - FREE TEXT/NARRATIVE: Patient is an 88 year old female who presents to the ED for the evaluation of chronic neck pain. She states that she has been doctoring with Dr. Dallas for neck pain/stiffness for the past 2 weeks or so. He did start her on tizanidine and gabapentin for initial pain relief. The patient states that she is sensitive to pain medications and get an upset stomach usually. She notes that any type of movement aggravates this pain. She is having a hard time opening her jaw or turning her head. She is scheduled to have x-rays in the next week by Dr. Dallas for further management. She states that her pain is a 10/10 today. She would note this to be burning in nature. She states that the pain does radiate down her bilateral shoulders. She denies any weakness, numbness/ tingling to upper extremities, headache, blurred or double vision. She states that she only takes tylenol PRN for an OTC pain reliever usually. She notes that a heating pad feels best to help with the pain. Treatments RN EMERGENCY: Reports: Acetaminophen Neck Pain Score (Numeric/FACES): 10 - Related Data Allergies Allergy/AdvReac Type Severity Reaction Status Date / Time ciprofloxacin Allergy Edema Verified 05/20/18 14:05 fentanyl Allergy Shortness Verified 05/20/18 14:05 of Breath Home Meds: Home Meds Omeprazole 20 mg PO DAILY 09/11/13 [History] Levothyroxine [Synthroid] 100 mg PO ACBRK 06/22/14 [History] Losartan/Hydrochlorothiazide [Losartan-HCTZ 100-25 MG] 25 - 100 mg PO DAILY [History] Meclizine [Antivert] 25 mg PO Q6H PRN 10/01/17 [History] Pravastatin Sodium [Pravastatin (Pravachol)] 10 mg PO DAILY 10/01/17 [History] Zolpidem Tartrate [Ambien] 1 tab PO BEDTIME PRN 10/01/17 [History] Ondansetron [Zofran ODT] 4 mg PO Q6H PRN #20 tab.dis 10/29/17 [Rx] Acetaminophen 250 mg PO ASDIRECTED PRN 03/13/18 [History] Magnesium Chloride [Slow-Mag] 71.5 mg PO BID #60 tablet. 03/13/18 [Rx] Potassium Chloride 20 meq PO DAILY #30 tablet.er 03/13/18 [Rx] Gabapentin [Neurontin] 100 mg PO TID 05/20/18 [History] Meloxicam 7.5 mg PO DAILY #10 tablet 05/20/18 [Rx] predniSONE [Prednisone] 20 mg PO ASDIRECTED #15 tablet 05/20/18 [Rx] tiZANidine [Zanaflex] 2 mg PO BID 05/20/18 [History] Past Medical History HEENT History: Reports: Impaired Vision, Other (See Below) Other HEENT History: eye infections Cardiovascular History: Reports: High Cholesterol, Hypertension Other Cardiovascular History: phlebitis Angiogram . 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: Musculoskeletal History: Reports: Osteoarthritis Neurological History: Reports: Vertigo Psychiatric History: Reports: Anxiety, Depression Other Psychiatric History: insomnia Endocrine/Metabolic History: Reports: Hypothyroidism Hematologic History: Reports: None Immunologic History: Reports: None Oncologic (Cancer) History: Reports: Hodgkin's Lymphoma, Renal Other Oncologic History: last chemo 2 years ago Dermatologic History: Reports: None - Infectious Disease History Infectious Disease History: Reports: Chicken Pox - Past Surgical History HEENT Surgical History: Reports: Cataract Surgery, Oral Surgery GI Surgical History: Reports: Appendectomy, Cholecystectomy, Colonoscopy Female Surgical History: Reports: Hysterectomy, Nephrectomy Social & Family History - Family History Family Medical History: Noncontributory - Tobacco Use Smoking Status *Q: Never Smoker - Caffeine Use Caffeine Use: Reports: Coffee, Tea - Recreational Drug Use Recreational Drug Use: No - Living Situation & Occupation Living situation: Reports: , with Spouse Occupation: Retired ED ROS GENERAL - Review of Systems Review Of Systems: See Below Constitutional: Reports: No Symptoms HEENT: Reports: Other (chronic neck pain) Respiratory: Reports: No Symptoms Cardiovascular: Reports: No Symptoms Endocrine: Reports: No Symptoms GI/Abdominal: Reports: No Symptoms : Reports: No Symptoms Musculoskeletal: Reports: Neck Pain (posteror, bilateral), Muscle Stiffness ( posterior neck muscle stiffness) Skin: Reports: No Symptoms Neurological: Reports: No Symptoms Psychiatric: Reports: No Symptoms Hematologic/Lymphatic: Reports: No Symptoms Immunologic: Reports: No Symptoms ED EXAM, UPPER BACK/NECK PAIN - Physical Exam Exam: See Below Exam Limited By: No Limitations General Appearance: Alert, WD/WN, No Apparent Distress Eye Exam: Bilateral Eye: EOMI, Normal Inspection, PERRL Ears Exam: Normal External Exam (bilateral hearing aids present) Nose Exam: Normal Inspection Throat/Mouth Exam: Normal Inspection, Normal Lips, Normal Oropharynx, No Airway Compromise Head Exam: Atraumatic, Normocephalic Neck Exam: Normal Alignment, Normal Inspection, Limited Range of Motion (due to pain, it is painful to turn head in any direction), Muscle Spasm (to bilateral upper trapezius) Nexus Criteria: No: Posterior, Midline Cervical Tenderness, Evidence of Intoxication, Altered Level of Consciousness, Focal Neurological Deficit, Painful Distraction Injuries Cardiovascular/Respiratory: Regular Rate, Rhythm, Normal Peripheral Pulses, No JVD GI/Abdominal: Normal Bowel Sounds, Soft, Non-Tender, No Distention Back Exam: Normal Inspection, Full Range of Motion Extremities: Normal Inspection, Normal Range of Motion, Non-Tender, Normal Capillary Refill Neurologic: No Motor/Sensory Deficits, Alert, Normal Mood/Affect, Oriented x 3 Psychiatric: Normal Affect, Normal Mood Skin Exam: Normal Color, Warm/Dry Course - Vital Signs Last Recorded V/S: Last Vital Signs Temp 98.2 F 05/20/18 14:16 Pulse 81 05/20/18 14:16 Resp 16 05/20/18 14:16 BP 155/77 H 05/20/18 14:16 Pulse Ox 96 05/20/18 14:16 - Orders/Labs/Meds Meds: Medications Discontinued Medications Generic Name Dose Route Start Last Admin Trade Name Allenq PRN Reason Stop Dose Admin Orphenadrine Citrate 100 mg 05/20/18 15:39 05/20/18 15:46 Norflex PO 05/20/18 15:40 100 mg ONETIME ONE Administration Prednisone 20 mg 05/20/18 14:59 05/20/18 15:09 Prednisone PO 05/20/18 15:00 20 mg ONETIME ONE Administration - Re-Assessments/Exams Free Text/Narrative Re-Assessment/Exam: 05/20/18 15:18 Pt presents to the ED for the evaluation of a stiff neck/pain. Case was discussed with Dr. Youngblood and he recommended low dose meloxicam 7.5mg daily for 10 days and prednisone 20 mg BID for 5 days and 20 mg daily for 5 days. Prescription for both of these were sent to [facility] in [facility], [place]. 05/20/18 16:26 Pt was re-assessed at bedside, and she feels she is able to move her neck more than she could at initial presentation. Pt will be discharged home. Departure - Departure Time of Disposition: 16:27 Disposition: Home, Self-Care 01 Condition: Fair Clinical Impression: Stiff neck - Discharge Information *PRESCRIPTION DRUG MONITORING PROGRAM REVIEWED*: No *COPY OF PRESCRIPTION DRUG MONITORING REPORT IN PATIENT TONY: No Prescriptions: Meloxicam 7.5 mg PO DAILY #10 tablet predniSONE [Prednisone] 20 mg PO ASDIRECTED #15 tablet Instructions: Neck Exercises Referrals: Rambo Dallas MD [Primary Care Provider] - Forms: ED Department Discharge Additional Instructions: You have been evaluated in the ED for your stiff neck. You have been provided with 2 new prescriptions. These have been sent to [facility] in [facility] [place]. Please take the Prednisone 20mg 1 tab twice daily for 5 days, then only take 1 tab daily for the next 5 days. Please take the Meloxicam 7.5mg 1 tab daily for the next 10 days. Please keep taking your Gabapentin as previously prescribed by Dr. Dallas. Please only take the Tizanidine (Zanaflex) only NEEDED for muscle spasms, this medication might be causing your feelings of sore/dry throat. You may use heat packs as needed to your neck for pain relief as well. Please try to stick to a soft food diet for the next couple of days to allow your neck to feel better. Please return to the ED if your symptoms should change or worsen.
[2018-05-20] MEDS ORDERED: Orphenadrine 100 MG Tab.ER PO ONE (15:39)
== END 2018-05-20 17:10 | disposition home or self-care (01) ==
LOC: JD.ED 13:52
DX: M43.6 Torticollis (principal); E78.00 Pure hypercholesterolemia, unspecified; I10 Essential (primary) hypertension; K21.9 Gastro-esophageal reflux disease without esophagitis; E03.9 Hypothyroidism, unspecified; F41.9 Anxiety disorder, unspecified; F32.9 Major depressive disorder, single episode, unspecified; Z88.1 Allergy status to other antibiotic agents; Z79.899 Other long term (current) drug therapy
CPT/HCPCS: 99283; A9270

== ENCOUNTER 2018-08-07 13:06 | Emergency (ER) | payer MEDICARE, OTHER ==
[2018-08-07] MEDS ORDERED: Alum Hydrox/Mag Hydrox/Simeth 30 ML, Lidocaine 2% 15 ML PO ONE ×2 (13:29)
--- NOTE | 2018-08-07 13:41 | EDM.PDOC ---
ED HPI GENERAL MEDICAL PROBLEM - General Chief Complaint: Chest Pain Stated Complaint: TIRED/NOT FEELING GOOD Time Seen by Provider: 08/07/18 13:18 Source of Information: Reports: Patient History Limitations: Reports: No Limitations - History of Present Illness INITIAL COMMENTS - FREE TEXT/NARRATIVE: 88 yo F h/o vertigo on Meclizine PRN comes in with after being sent over from [facility] for "tiredness" and chest heaviness/"warmth" in the epigastric region x 4-5 days. She has had this in the past, but states it usually only lasts about a day. She has been working a lot at home as they are trying to sell their house. She also mentions she tends to not drink enough water. She denies having any heart burn sensation and is currently taking Prilosec daily for GERD. She denies F/C, SOB, cough, runny nose, sore throat, chest pain, N/V/D, decreased appetite, recent weight loss, constipation or complaints. She does c/o of generalized weakness, dizziness when she is working (improves with rest), difficulty sleeping. She has been taking Ambien "for the past 40 years" and usually gets 4-6 hours of sleep per night. She has not needed her Meclizine "for awhile". No other concerns a this time. PCP is Dr. Dallas. - Related Data Allergies Allergy/AdvReac Type Severity Reaction Status Date / Time ciprofloxacin Allergy Edema Verified 05/20/18 14:05 fentanyl Allergy Shortness Verified 05/20/18 14:05 of Breath Home Meds: Home Meds Omeprazole 20 mg PO BID 09/11/13 [History] Levothyroxine [Synthroid] 100 mg PO ACBRK 06/22/14 [History] Losartan/Hydrochlorothiazide [Losartan-HCTZ 100-25 MG] 25 - 100 mg PO DAILY [History] Pravastatin Sodium [Pravastatin (Pravachol)] 10 mg PO DAILY 10/01/17 [History] Zolpidem Tartrate [Ambien] 10 mg PO BEDTIME PRN 10/01/17 [History] Potassium Chloride 20 meq PO DAILY #30 tablet.er 03/13/18 [Rx] Gabapentin [Neurontin] 100 mg PO TID 05/20/18 [History] tiZANidine [Zanaflex] 2 mg PO BID 05/20/18 [History] Aspirin 81 mg PO DAILY 08/07/18 [History] Docusate Sodium [Colace] 100 mg PO BID 08/07/18 [History] LORazepam 0.5 mg PO QID PRN 08/07/18 [History] traMADol [Ultram] 50 mg PO TID PRN 08/07/18 [History] Past Medical History HEENT History: Reports: Impaired Vision, Other (See Below) Other HEENT History: eye infections Cardiovascular History: Reports: High Cholesterol, Hypertension Other Cardiovascular History: phlebitis Angiogram . 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 History: Reports: Musculoskeletal History: Reports: Osteoarthritis Neurological History: Reports: Vertigo Psychiatric History: Reports: Anxiety, Depression Other Psychiatric History: insomnia Endocrine/Metabolic History: Reports: Hypothyroidism Hematologic History: Reports: None Immunologic History: Reports: None Oncologic (Cancer) History: Reports: Hodgkin's Lymphoma, Renal Other Oncologic History: last chemo 2 years ago Dermatologic History: Reports: None - Infectious Disease History Infectious Disease History: Reports: Chicken Pox - Past Surgical History HEENT Surgical History: Reports: Cataract Surgery, Oral Surgery GI Surgical History: Reports: Appendectomy, Cholecystectomy, Colonoscopy Female Surgical History: Reports: Hysterectomy, Nephrectomy Social & Family History - Family History Family Medical History: Noncontributory - Caffeine Use Caffeine Use: Reports: Coffee, Tea - Living Situation & Occupation Living situation: Reports: , with Spouse Occupation: Retired ED ROS GENERAL - Review of Systems Review Of Systems: ROS reveals no pertinent complaints other than HPI. ED EXAM, GENERAL - Physical Exam Exam: See Below Exam Limited By: No Limitations General Appearance: Alert, WD/WN, No Apparent Distress Eye Exam: Bilateral Eye: EOMI, Normal Inspection, PERRL Ears: Other (NULATO) Throat/Mouth: Normal Inspection, Normal Lips, Normal Teeth, Normal Gums, Normal Oropharynx, Normal Voice, No Airway Compromise Head: Atraumatic, Normocephalic Neck: Normal Inspection, Supple, Non-Tender, Full Range of Motion Respiratory/Chest: No Respiratory Distress, Lungs Clear, Normal Breath Sounds, No Accessory Muscle Use, Chest Non-Tender Cardiovascular: Normal Peripheral Pulses, Regular Rate, Rhythm, No Edema, No Gallop, No JVD, No Rub, Other (Murmur) GI/Abdominal: Soft, Non-Tender, No Organomegaly, No Distention, No Abnormal Bruit, No Mass, Abnormal Bowel Sounds (hyperactive) Back Exam: Normal Inspection Neurological: Alert, Oriented, CN II-XII Intact, Normal Cognition, Normal Gait, Normal Reflexes, No Motor/Sensory Deficits Psychiatric: Normal Affect, Normal Mood Skin Exam: Warm, Dry, Intact, Normal Color, No Rash EKG INTERPRETATION EKG Date: 08/07/18 Time: 13:24 Rhythm: NSR Rate (Beats/Min): 65 ST-T: Normal QT: Prolonged (minimally) EKG Interpretation Comments: Sinus rhythm @65 bpm, P wave inverted V1 and V2, early R prime wave transition- consider septal hypertrophy occ PVC, LVH, QTc minimally prolonged, T wave fluttering AVL Course - Vital Signs Last Recorded V/S: Last Vital Signs Temp 96.7 F 08/07/18 13:23 Pulse 64 08/07/18 14:02 Resp 16 08/07/18 13:23 BP 157/54 H 08/07/18 14:02 Pulse Ox 100 08/07/18 13:23 Orthostatic Blood Pressure [ 156/58 Supine] Orthostatic Blood Pressure [ 157/54 Sitting] Orthostatic Blood Pressure [ 150/61 Standing] - Orders/Labs/Meds Orders: Active Orders 24 hr Category Date Time Status EKG Documentation Completion [RC] ASDIRECTED Care 08/07/18 13:30 Active Orthostatic Vital Signs [RC] ASDIRECTED Care 08/07/18 13:58 Active Magnesium Oxide Med 08/07/18 15:00 Once 400 mg PO ONETIME ONE EKG 12 Lead [EK] Stat Ther 08/07/18 13:29 Ordered Medication Orders Magnesium Oxide (Magnesium Oxide) 400 mg PO ONETIME ONE Stop: 08/07/18 15:01 Labs: Laboratory Tests 08/07/18 08/07/18 08/07/18 Range/Units 13:25 13:25 13:25 WBC 4.89 (3.98-10.04) K/mm3 RBC 4.08 (3.98-5.22) M/mm3 Hgb 12.1 D (11.2-15.7) gm/L Hct 36.4 (34.1-44.9) % MCV 89.2 (79.4-94.8) fl MCH 29.7 (25.6-32.2) pg MCHC 33.2 (32.2-35.5) g/dl RDW Std Deviation 46.8 H (36.4-46.3) fL Plt Count 202 (182-369) K/mm3 MPV 9.8 (9.4-12.3) fl Neut % (Auto) 70.8 (34.0-71.1) % Lymph % (Auto) 17.6 L (19.3-51.7) % [place] % (Auto) 10.6 (4.7-12.5) % Eos % (Auto) 0.6 L (0.7-5.8) Baso % (Auto) 0.2 (0.1-1.2) % Neut # (Auto) 3.46 (1.56-6.13) K/mm3 Lymph # (Auto) 0.86 L (1.18-3.74) K/mm3 [place] # (Auto) 0.52 H (0.24-0.36) K/mm3 Eos # (Auto) 0.03 L (0.04-0.36) K/mm3 Baso # (Auto) 0.01 (0.01-0.08) K/mm3 Sodium 135 L (136-145) mEq/L Potassium 3.6 (3.5-5.1) mEq/L Chloride 99 (98-107) mEq/L Carbon Dioxide 27 (21-32) mEq/L Anion Gap 12.6 (5-15) BUN 24 H (7-18) mg/dL Creatinine 1.3 H (0.55-1.02) mg/dL Est Cr Clr Drug Dosing 27.73 mL/min Estimated GFR (MDRD) 39 (>60) mL/min BUN/Creatinine Ratio 18.5 H (14-18) Glucose 110 (83-115) mg/dL Calcium 9.2 (8.5-10.1) mg/dL Magnesium 1.6 L (1.8-2.4) mg/dl Total Bilirubin 1.2 H (0.2-1.0) mg/dL AST 24 (15-37) U/L ALT 25 (14-59) U/L Alkaline Phosphatase 45 L (46-116) U/L Troponin I < 0.017 (0.00-0.056) ng/mL Total Protein 6.8 (6.4-8.2) g/dl Albumin 3.9 (3.4-5.0) g/dl Globulin 2.9 gm/dL Albumin/Globulin Ratio 1.3 (1-2) Meds: Medications Generic Name Dose Route Start Last Admin Trade Name Freq PRN Reason Stop Dose Admin Magnesium Oxide 400 mg 08/07/18 15:00 Magnesium Oxide PO 08/07/18 15:01 ONETIME ONE Discontinued Medications Generic Name Dose Route Start Last Admin Trade Name Freq PRN Reason Stop Dose Admin Al Hydroxide/Mg Hydroxide 30 0 ml 08/07/18 13:29 08/07/18 14:37 ml/ Lidocaine HCl 15 ml PO 08/07/18 13:30 Not Given ONETIME ONE Sodium Chloride 1,000 mls @ 999 mls/hr 08/07/18 13:59 08/07/18 14:13 Normal Saline IV 08/07/18 14:59 999 mls/hr ONETIME ONE Administration - Re-Assessments/Exams Free Text/Narrative Re-Assessment/Exam: 08/07/18 13:57 Ordered CBC, CMP, Mag, Troponin CXR, EKG 1L bolus NS Orthostatic VS 08/07/18 14:[address] Youngblood and myself- nothing acute seen. 08/07/18 14:08 Orthostatic VS negative per nursing, but did get "dizzy"; likely 2/2 h/o vertigo 08/07/18 14:[address] Youngblood and myself- decreased vascularity seen in Left upper lobe, hyperinflated lungs, nothing acute. Dr. Mcgraw read: 1. Emphysematous change. 2. Other incidental findings. Nothing acute is appreciated. 08/07/18 14:22 Troponin <0.017 08/07/18 15:01 CBC shows RDW 46.8, Lymph 17.6% CMP Na 135, BUN 24, Cr 1.3, Bili 1.2, Alk Phos 45 Mg 1.6 Will order 400mg Magnesium PO x1 for replacement. Pt is otherwise stable at this time, infectious and cardiac workup negative. She is ready to go home. Recommend f/u with PCP. She is taking Ambien x 40 years- may want to revisit this with her PCP as it could be adding to her increased tiredness. Departure - Departure Time of Disposition: 15:03 Disposition: Home, Self-Care 01 Condition: Good Clinical Impression: Generalized weakness, Chest heaviness, Tiredness, Hypomagnesemia Instructions: Weakness, [id number], Nonspecific Chest Pain, [id number], Fatigue, Hypomagnesemia Referrals: Rambo Dallas MD [Primary Care Provider] - Forms: ED Department Discharge Additional Instructions: You were seen in the ED today for tiredness and chest heaviness/warmth for 4-5 days. Your cardiac and infectious workup were negative. You were found to have low Magnesium which was replaced while here. You also received IV fluids for hydration. At this time, you are stable enough to go home. Recommend rest and staying hydrated with water, Gatorade or Pedialyte. Recommend follow up with your primary care provider, Dr. Dallas. May want to discuss medications with your primary care provider in case they are adding to your tiredness. Please return to ED if new or worsening symptoms. - My Orders Last 24 Hours: My Active Orders 08/07/18 13:29 EKG 12 Lead [EK] Stat 08/07/18 13:30 EKG Documentation Completion [RC] ASDIRECTED 08/07/18 13:58 Orthostatic Vital Signs [RC] ASDIRECTED 08/07/18 15:00 Magnesium Oxide 400 mg PO ONETIME ONE - Assessment/Plan Last 24 Hours: My Active Orders 08/07/18 13:29 EKG 12 Lead [EK] Stat 08/07/18 13:30 EKG Documentation Completion [RC] ASDIRECTED 08/07/18 13:58 Orthostatic Vital Signs [RC] ASDIRECTED 08/07/18 15:00 Magnesium Oxide 400 mg PO ONETIME ONE
[2018-08-07] MEDS ORDERED: Sodium Chloride 0.9% 1,000 ML IV ONE (13:59)
--- NOTE | 2018-08-07 14:13 | CR ---
Chest: Two views of the chest were obtained. Comparison: Prior chest x-ray of 03/13/18. Heart size and mediastinum are normal. Several surgical clips are seen at the base of the left neck. Lungs are clear but hyperinflated. Bony structures show slight degenerative endplate spurring within the spine. Multiple surgical clips are seen within the upper right abdomen. Impression: 1. Emphysematous change. 2. Other incidental findings. Nothing acute is appreciated. Diagnostic code #2
[2018-08-07] MEDS ORDERED: Magnesium Oxide 400 MG Tab PO ONE (15:00)
[2018-08-07 15:35] VITALS: BP 155/67
== END 2018-08-07 15:30 | disposition home or self-care (01) ==
LOC: JD.ED 13:06
DX: R07.89 Other chest pain (principal); R53.1 Weakness; E83.42 Hypomagnesemia; E03.9 Hypothyroidism, unspecified; R53.83 Other fatigue; E78.00 Pure hypercholesterolemia, unspecified; I10 Essential (primary) hypertension; F41.9 Anxiety disorder, unspecified; F32.9 Major depressive disorder, single episode, unspecified; Z88.1 Allergy status to other antibiotic agents; Z88.8 Allergy status to other drugs, medicaments and biological substances; Z79.899 Other long term (current) drug therapy; Z79.82 Long term (current) use of aspirin
CPT/HCPCS: 36415; 71046; 80053; 83735; 84484; 85025; 93005; 96360; 99284; J7040

== ENCOUNTER 2018-10-12 10:30 | Emergency (ER) | payer MEDICARE, OTHER ==
[2018-10-12 11:01] VITALS: BP 125/75
--- NOTE | 2018-10-12 11:08 | EDM.PDOC ---
ED HPI GENERAL MEDICAL PROBLEM - General Chief Complaint: Upper Extremity Injury/Pain Stated Complaint: SWOLLEN LEFT WRIST Time Seen by Provider: 10/12/18 11:02 Source of Information: Reports: Patient, RN Notes Reviewed History Limitations: Reports: No Limitations - History of Present Illness INITIAL COMMENTS - FREE TEXT/NARRATIVE: Patient is an 88-year-old female who presents to the ED today for evaluation of a left swollen and red wrist. The patient notes that this started Saturday, where she started noticing some swelling and pain, and this is gotten progressively worse since then. She states this pain to be throbbing and intense in nature. She states she does have a history of arthritis but denies a history of gout at this time. She states that the pain is mostly in her wrist , and she is unable to move it very far, as any movement seems to aggravate the pain. She denies any trauma to the wrist, or lifting anything out of the ordinary for herself. 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 She states that she tried to take some Tylenol, however she says any sort of pain medication doesn't make her stomach feel very good so she doesn't take it very often. Dr. Dallas is her primary care provider and she recently had a visit with him and everything was okay. She developed this pain after this visit. She would rate her pain at an 8 out of 10 today. She did try putting some ice packs on it, this helped for a little while however not for very long. Left Wrist Pain Score (Numeric/FACES): 8 - Related Data Allergies Allergy/AdvReac Type Severity Reaction Status Date / Time ciprofloxacin Allergy Edema Verified 10/12/18 11:01 fentanyl Allergy Shortness Verified 10/12/18 11:01 of Breath Home Meds: Home Meds Omeprazole 20 mg PO BID 09/11/13 [History] Levothyroxine [Synthroid] 100 mg PO ACBRK 06/22/14 [History] Losartan/Hydrochlorothiazide [Losartan-HCTZ 100-25 MG] 25 - 100 mg PO DAILY [History] Pravastatin Sodium [Pravastatin (Pravachol)] 10 mg PO DAILY 10/01/17 [History] Zolpidem Tartrate [Ambien] 10 mg PO BEDTIME PRN 10/01/17 [History] Potassium Chloride 20 meq PO DAILY #30 tablet.er 03/13/18 [Rx] Gabapentin [Neurontin] 100 mg PO TID 05/20/18 [History] tiZANidine [Zanaflex] 2 mg PO BID 05/20/18 [History] Aspirin 81 mg PO DAILY 08/07/18 [History] Docusate Sodium [Colace] 100 mg PO BID 08/07/18 [History] LORazepam 0.5 mg PO QID PRN 08/07/18 [History] traMADol [Ultram] 50 mg PO TID PRN 08/07/18 [History] predniSONE 20 mg PO ASDIRECTED #15 tab 10/12/18 [Rx] Past Medical History HEENT History: Reports: Impaired Vision, Other (See Below) Other HEENT History: eye infections Cardiovascular History: Reports: High Cholesterol, Hypertension Other Cardiovascular History: phlebitis Angiogram . 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: Musculoskeletal History: Reports: Osteoarthritis Neurological History: Reports: Vertigo Psychiatric History: Reports: Anxiety, Depression Other Psychiatric History: insomnia Endocrine/Metabolic History: Reports: Hypothyroidism Hematologic History: Reports: None Immunologic History: Reports: None Oncologic (Cancer) History: Reports: Hodgkin's Lymphoma, Renal Other Oncologic History: last chemo 2 years ago Dermatologic History: Reports: None - Infectious Disease History Infectious Disease History: Reports: Chicken Pox - Past Surgical History HEENT Surgical History: Reports: Cataract Surgery, Oral Surgery GI Surgical History: Reports: Appendectomy, Cholecystectomy, Colonoscopy Female Surgical History: Reports: Hysterectomy, Nephrectomy Social & Family History - Family History Family Medical History: Noncontributory - Caffeine Use Caffeine Use: Reports: Coffee, Tea - Living Situation & Occupation Living situation: Reports: , with Spouse Occupation: Retired Review of Systems - Review of Systems Review Of Systems: See Below Constitutional: Denies: Chills, Fever Eyes: Reports: No Symptoms Ears: Reports: No Symptoms Nose: Reports: No Symptoms Mouth/Throat: Reports: No Symptoms Respiratory: Reports: No Symptoms Cardiovascular: Reports: No Symptoms GI/Abdominal: Reports: No Symptoms Genitourinary: Reports: No Symptoms Musculoskeletal: Reports: Joint Pain (Left wrist), Joint Swelling (Left wrist) Skin: Reports: Erythema (Left wrist) Neurological: Denies: Numbness, Tingling Psychiatric: Reports: No Symptoms ED EXAM, GENERAL - Physical Exam Exam: See Below Exam Limited By: No Limitations General Appearance: Alert, WD/WN, No Apparent Distress Respiratory/Chest: No Respiratory Distress, Lungs Clear, Normal Breath Sounds, No Accessory Muscle Use, Chest Non-Tender Cardiovascular: Normal Peripheral Pulses, Regular Rate, Rhythm, No Murmur Peripheral Pulses: 3+: Radial (L), Radial (R) Extremities: Normal Inspection (swelling,redness, and warmth noted to Left wrist ), Normal Capillary Refill, Limited Range of Motion (of Left wrist d/t pain, decreased accountancy professor strength only in Left hand.) Neurological: Alert, Oriented, Normal Cognition, No Motor/Sensory Deficits Psychiatric: Normal Affect, Normal Mood Skin Exam: Warm, Dry, Intact, No Rash, Erythema (noted to entire left wrist with warmth and swelling noted), Increased Warmth (Left wrist) Course - Vital Signs Last Recorded V/S: Last Vital Signs Temp 98.4 F 10/12/18 10:57 Pulse 82 10/12/18 10:57 Resp 18 10/12/18 10:57 BP 125/75 10/12/18 10:57 Pulse Ox 97 10/12/18 10:57 - Orders/Labs/Meds Labs: Laboratory Tests 10/12/18 10/12/18 Range/Units 11:40 11:40 WBC 6.57 (3.98-10.04) K/mm3 RBC 3.81 L (3.98-5.22) M/mm3 Hgb 11.2 (11.2-15.7) gm/L Hct 33.6 L (34.1-44.9) % MCV 88.2 (79.4-94.8) fl MCH 29.4 (25.6-32.2) pg MCHC 33.3 (32.2-35.5) g/dl RDW Std Deviation 44.3 (36.4-46.3) fL Plt Count 186 (182-369) K/mm3 MPV 8.7 L (9.4-12.3) fl Neutrophils % (Manual) 89 H (40-60) % Band Neutrophils % 0 (0-10) % Lymphocytes % (Manual) 8 L (20-40) % Atypical Lymphs % 0 % Immat Monocytes % (Man) 0 Monocytes % (Manual) 3 (2-10) % Eosinophils % (Manual) 0 L (0.7-5.8) % Basophils % (Manual) 0 L (0.1-1.2) Metamyelocytes % 0 Myelocytes % 0 Promyelocytes % 0 Blast Cells % 0 Plasma Cell % (Manual) 0 Nucleated RBCs 0.0 % Platelet Estimate Adequate RBC Morph Comment Normal Sodium 132 L (136-145) mEq/L Potassium 3.8 (3.5-5.1) mEq/L Chloride 96 L (98-107) mEq/L Carbon Dioxide 26 (21-32) mEq/L Anion Gap 13.8 (5-15) BUN 19 H (7-18) mg/dL Creatinine 1.2 H (0.55-1.02) mg/dL Est Cr Clr Drug Dosing TNP Estimated GFR (MDRD) 42 (>60) mL/min BUN/Creatinine Ratio 15.8 (14-18) Glucose 127 H (83-115) mg/dL Calcium 9.0 (8.5-10.1) mg/dL Total Bilirubin 1.8 H (0.2-1.0) mg/dL AST 18 (15-37) U/L ALT 20 (14-59) U/L Alkaline Phosphatase 52 (46-116) U/L C-Reactive Protein 3.7 H* (<1.0) mg/dL Total Protein 6.8 (6.4-8.2) g/dl Albumin 3.8 (3.4-5.0) g/dl Globulin 3.0 gm/dL Albumin/Globulin Ratio 1.3 (1-2) Meds: Medications Discontinued Medications Generic Name Dose Route Start Last Admin Trade Name Freq PRN Reason Stop Dose Admin Prednisone 40 mg 10/12/18 11:25 10/12/18 11:31 Prednisone PO 10/12/18 11:26 40 mg ONETIME ONE Administration - Re-Assessments/Exams Free Text/Narrative Re-Assessment/Exam: 10/12/18 12:14 Patient presents to the ED for evaluation of a swollen and red and left wrist. This is suspicious for gout in nature due to its presentation, have ordered a CBC, CMP, CRP and 40 mg of oral prednisone to start with. We will likely send the patient home with a burst of prednisone. 10/12/18 12:43 Patient's labs are essentially within normal limits for the patient. Her CRP is elevated at 3.7 today, which is consistent with an inflammation of the joints likely due to gout. We will provide the patient with a prescription for prednisone and recommendation for follow-up with her primary care provider after the conclusion of the medication. Patient is understanding of this. Departure - Departure Time of Disposition: 12:44 Disposition: Home, Self-Care 01 Condition: Fair Clinical Impression: Gout attack Qualifiers: Gout site: wrist Gout etiology: unspecified cause Laterality: left Qualified Code(s): M10.9 - Gout, unspecified - Discharge Information *PRESCRIPTION DRUG MONITORING PROGRAM REVIEWED*: No *COPY OF PRESCRIPTION DRUG MONITORING REPORT IN PATIENT TONY: No Prescriptions: predniSONE 20 mg PO ASDIRECTED #15 tab Instructions: Low-Purine Eating Plan, Gout, [id number] Referrals: Rambo Dallas MD [Primary Care Provider] - Forms: ED Department Discharge Additional Instructions: You have been evaluated in the ED today for your left wrist pain. Your pain is consistent with gout, your laboratory evaluation was also consistent with gout. You have been provided with prescription for prednisone, please take as directed with meals. This was electronically sent to [facility] [place] [facility] [place] Recommend that you follow up with your primary care provider Dr. Dallas after you have finished the course of medications to make sure that you do not need further treatment. Please return to the ED if your symptoms should change or worsen.
[2018-10-12] MEDS ORDERED: predniSONE 20 MG Tab PO ONE (11:25)
== END 2018-10-12 13:14 | disposition home or self-care (01) ==
LOC: JD.ED 10:30
DX: M10.9 Gout, unspecified (principal); E78.00 Pure hypercholesterolemia, unspecified; I10 Essential (primary) hypertension; K21.9 Gastro-esophageal reflux disease without esophagitis; F41.9 Anxiety disorder, unspecified; F32.9 Major depressive disorder, single episode, unspecified; E03.9 Hypothyroidism, unspecified; Z88.8 Allergy status to other drugs, medicaments and biological substances; Z88.1 Allergy status to other antibiotic agents; Z79.899 Other long term (current) drug therapy; Z79.82 Long term (current) use of aspirin; Z87.442 Personal history of urinary calculi
CPT/HCPCS: 36415; 80053; 85007; 85027; 86140; 99283; A9270